=== PATIENT | female | born 1935 | race Caucasian/White ===

== ENCOUNTER 2024-11-17 10:04 | Outpatient (AMB) | payer MEDICARE, BC, SELFPAY ==
--- NOTE | 2024-11-17 10:08 | A.OFFVIS_ITS ---
Vital Signs 11/17/24 10:13 Height 4 ft 10 in Weight 110 lb BMI 23.0 BMI Reason not done Patient refused/unable Intake Visit Reasons: Left Knee Pain Intake Note: Pain today 01/06 Editorial Cartoonist Required: No Editorial Cartoonist Name: Nani Accompanied by: Grand Child Allergies acetaminophen (Vicodin) Allergy (Unknown, Verified 11/17/24 10:22) Unknown dexamethasone (TobraDex) Allergy (Unknown, Verified 11/17/24 10:22) Unknown erythromycin base Allergy (Unknown, Verified 11/17/24 10:22) Unknown fentanyl Allergy (Unknown, Verified 11/17/24 10:22) Vomiting hydrocodone (Vicodin) Allergy (Unknown, Verified 11/17/24 10:22) Unknown risedronate sodium (Actonel) Allergy (Unknown, Verified 11/17/24 10:22) Unknown Sulfa (Sulfonamide Antibiotics) Allergy (Unknown, Verified 11/17/24 10:22) Unknown sulfamethoxazole (From Bactrim) Allergy (Unknown, Verified 11/17/24 10:22) Unknown theophylline Allergy (Unknown, Verified 11/17/24 10:22) Unknown tobramycin (TobraDex) Allergy (Unknown, Verified 11/17/24 10:22) Unknown trimethoprim (From Bactrim) Allergy (Unknown, Verified 11/17/24 10:22) Unknown Anesthesia Extension Set Allergy (Unknown, Uncoded 11/17/24 10:22) Unknown Codeine Phosphate Allergy (Unknown, Uncoded 11/17/24 10:22) Vomiting Harvey-Heel Allergy (Unknown, Uncoded 11/17/24 10:22) Unknown HPI Comments Details: The patient is an 89-year-old female presenting with left knee pain due to advanced osteoarthritis. The left knee pain has been persistent since a torn meniscus surgery in 2008, which was performed on the left knee. The patient reports severe pain, rated 10/10 at the end of the day and 8/10 in the morning, localized to the anterior aspect of the left knee. The pain is described as throbbing, pounding, burning, tiring, aching, hurting, heavy, and tight, and is exacerbated by walking, climbing stairs, and cold weather changes. The patient has a history of osteoporosis and has been treated with Forteo for two years, which helped slow the progression of bone density loss. The patient is considering [facility] for further management of osteoporosis. The patient also has Alzheimer's dementia without behavioral disturbance, which is considered mild and well-managed as long as urinary tract infections are controlled. - Onset: Persistent since 2008 following torn meniscus surgery - Quality: Throbbing, pounding, burning, tiring, aching, hurting, heavy, tight - Location: Anterior aspect of the left knee with medial and lateral joint line tenderness and anterior mild swelling - Severity: 10/10 at the end of the day, 8/10 in the morning - Exacerbating factors: Walking, climbing stairs, cold weather changes - Relieving factors: Rest, topical applications - Interference: Affects walking, climbing stairs, and general mobility - Affect: Pain impacts daily activities and mobility, but no specific mood impact mentioned - Analgesia: Current pain level is 10/10 at the end of the day, 8/10 in the morning; goal pain level not specified - Adverse Effects: No adverse effects from pain management mentioned - Activities of Daily Living: Pain interferes with walking, climbing stairs, and general mobility - Aberrant Drug Related Behaviors: None reported [facility] Medical History Left knee pain Multiple drug allergies Osteoarthritis Celiac disease Multiple chemical sensitivity syndrome Depression Surgical History Hx of appendectomy H/O total hysterectomy with bilateral salpingo-oophorectomy (BSO) Social History Alcohol intake: unknown Patient Tobacco Use Status: Former Tobacco user Review of Systems Const Details: - Musculoskeletal: Reports severe left knee pain, locking, and clicking; denies use of heat or ice for knee - Neurological: Denies significant cognitive decline; reports mild Alzheimer's dementia without behavioral disturbance All systems reviewed & are unremarkable except as noted in HPI and below Physical Exam Vital Signs: BMI result Body Mass Index 23.0 General: Appears afebrile. Alert and oriented. Mood and affect appropriate. Follows and participates in conversation appropriately. Respiratory effort is unlabored. No cough. Able to transition from sit to stand unassisted. Ambulates with bilaterally normal heel strike and toe off. Extrem General: Yes capillary refill normal, Yes no pedal edema, Yes no calf tenderness, No clubbing and No cyanosis Left lower extremity: knee (Limited ROM due to pain.) Details: tenderness Location: of the medial joint line, of the lateral joint line and of the pre- patellar area, swelling Location: of the patella and of the pre-patellar area, crepitus and warmth Location: anteriorly; no ecchymosis Results Reviewed Results Reviewed: XR KNEE 3 VIEWS LEFT 11/17/24 HISTORY: M17.12 - Unilateral primary osteoarthritis, left knee COMPARISON: There are no prior studies available for comparison. FINDINGS: Three views of the left knee are submitted. The bones are osteopenic. There is no fracture or dislocation. There is moderate tricompartmental osteoarthritis, with joint space narrowing and osteophyte formation. There is chondrocalcinosis. There is a moderate suprapatellar joint effusion. IMPRESSION: Osteopenia. Moderate joint effusion. Moderate tricompartmental osteoarthritis. Assessment & Plan Assessment & Plan (1) Osteoarthritis of left knee: Code(s): M17.12 - Unilateral primary osteoarthritis, left knee Category: Medical (2) Left knee pain: Code(s): M25.562 - Pain in left knee Category: Medical (3) Effusion of left knee joint: Code(s): M25.462 - Effusion, left knee Category: Medical Plan The plan for managing the patient's left knee osteoarthritis includes considering interventional procedures such as radiofrequency ablation, depending on insurance coverage and patient preference. Left knee xray was completed after today's visit, noted for osteopenia, moderate joint effusion and moderate tricompartmental osteoarthritis. Schedule left diagnostic genicular nerve block with potential joint aspiration, with local and fluoroscopy. Expectations, risks and benefits were reviewed. Patient is aware she will be contacted to schedule this procedure. Continue re st, elevation, ice applications to manage pain and swelling. The patient is advised to continue her current exercise regimen at the [facility], focusing on maintaining overall mobility and strength. All questions and concerns have been answered and patient agreed with the plan. Follow up after injections and sooner as needed. Patient was informed and verbally consented to the use of an ambient scribe for clinic note documentation during this visit. Orders: Orders XR knee LT 3V Today M17.12 - Unilateral primary osteoarthritis, left knee, M25.562 - Pain in left knee Coding Level of Care Code New Pt Level 4 (67939) Diagnoses Osteoarthritis of left knee M17.12 Left knee pain M25.562 Effusion of left knee joint M25.462
[2024-11-17 10:13] VITALS: BMI 23.0
--- OUTSIDE RECORDS SUMMARY | 2024-11-17 11:06 | XMS_ITS | Referral Summary ---
Author Organization [facility] Address [address] [place] [address] Care Team Providers Care Business Analyst Manager Name Role Phone Raisa Ortez DO, Diana Primary Care Provider + Encounters Date Type Department Care Team Description 10/15/[address] Department [address] [place] [phone] Yanelis Kline DO [place] Referral 10/13/2024 myChart Message [address] Practice Department [address] [place] [phone] Yanelis Kline DO Medical Referral 10/01/2024 4:00 PM EDT Office Visit [address] Department [address] [place] [phone] Yanelis Kline DO Recurrent UTI (Primary Dx); Hypertension, essential; Hypothyroidism (acquired); Osteoporosis, unspecified osteoporosis type, unspecified pathological fracture presence; Alzheimer's dementia without behavioral disturbance (HCC); Dysuria 09/23/2024 myChart Message [address] Practice Department [address] [place] [phone] Armandt, Generic Provider Appointment 09/23/[address] Practice Department [address] [place] [phone] Yanelis Kline V, DO Patient Medication Question 09/15/2024 myChart Message [facility] Endocrinology Department [address] [place] [address] [phone] Carin Gutierrez MD Incorrect Thyroid Dosage 09/15/2024 Telephone [facility] [address] [facility] Endocrinology Department [address] [place] [address] [phone] Carin Gutierrez MD 08/25/2024 Telephone [facility] 255 [facility] Family Practice Department [address] [place] [phone] Yanelis Kline DO Referral Question 08/23/2024 Results Follow-Up [facility] 255 [facility] Family Practice Department [address] [place] [address] [phone] Yanelis Kline V, Results from Last 3 Months Allergies Active Allergy Reactions Criticality Noted Date Comments Acetaminophen Unknown 02/28/2016 n/v Codeine Unknown 02/28/2016 n/v Erythromycin Unknown Low 03/02/2005 Extra Eye Drops Unknown 02/28/2016 Sulfur-itchy eyes Fentanyl Unknown 02/28/2016 n/v Gluten Unknown 08/09/2017 Celiac disease Hydrocodone-Acetaminophen Unknown,Nausea And Vomiting Medium 03/02/2005 Lidocaine Unknown 02/28/2016 Dizzy,nausea,tired Memantine Syncope High 08/10/2024 Midazolam Unknown 02/28/2016 Dizzy,nausea,tired Risedronate Swelling High 02/28/2016 Numb/ting or swelling of lips,tongue,mouth Spironolactone Unknown 03/29/2023 Sulfa (Sulfonamide Antibiotics) Hives,Other (see comments) 03/18/2024 Sulfamethoxazole-Trimetho prim Unknown,Flushing Medium 03/02/2005 Sulfur Unknown 03/29/2023 Theophylline Unknown Medium 03/02/2005 Tobramycin-Dexamethasone Unknown 03/29/2023 Triprolidine-Pseudoephedr ine Swelling High 03/02/2005 Medications CALCIUM LACTATE ORAL Take 325 mg by mouth once a day. Active qnndkevi-jtw-WZ -lycopen-lutein 0.4 mg-300 mcg- 250 mcg tablet Take 1 tablet by mouth once a day. Active omega-3 fatty acids 1,000 mg capsule Take 1,000 mg by mouth once a day. Active magnesium oxide 400 mg magnesium tablet Take 400 mg by mouth once a day. Active selenium sulfide (SELSUN) 2.5 % lotion SMARTSIG:Top ical 03/16/2023 Active Vitamin D3 25 mcg (1,000 unit) capsule Take 1 capsule by mouth once a day. Active ascorbic acid (VITAMIN C) 500 mg tablet Take 500 mg by mouth once a day. Active thyroid (ETHANOL MAINTENANCE MECHANIC Thyroid) 60 mg tabletIndicatio ns:Hypothyroidi sm (acquired) Take 1 tablet (60 mg total) by mouth daily. 30 tablet 5 09/15/2024 Active Active Problems Problem Noted Date Diagnosed Date Recurrent UTI 05/04/2024 Assessment & Plan (10/01/2024 6:15 PM EDT): No overt urinary symptoms but reports slight decline in memory and mood which has been a result of a UTI in the past. Will check UA. Often times she does not have noticeable symptoms. There may be a cognitive declines when she has an active UTI. She has tried Estrace cream as a prophylaxis but she had an adverse reaction to. She has been prescribed Hiprex by urologist but stopped it yesterday. Rx keflex dispensed and supportive care reviewed. Call if no improvement. Orders: POCT Urinalysis dipstick cephalexin (KEFLEX) 500 mg capsule; Take 1 capsule (500 mg total) by mouth 2 times a day for 7 days. Assessment & Plan (08/23/2024 7:51 PM EDT): Currently experiencing some urinay frequency. Will check UA. Often times she does not have noticeable symptoms. There may be a cognitive declines when she has an active UTI. She has tried Estrace cream as a prophylaxis but she had an adverse reaction to. She has been prescribed Hiprex by urology but unclear if she is taking it. Assessment & Plan (05/08/2024 6:53 PM EST): Currently experiencing some urinay frequency. Will check UA. Often times she does not have noticeable symptoms. There may be a cognitive declines when she has an active UTI. She has tried Estrace cream as a prophylaxis but she had an adverse reaction to. She is requesting Hiprex. Recommend urology consultation for her need for this medication. Orders: Urinalysis W/Reflex to Microscopic & Culture; Future Urine culture (clean catch) (Lab Collect) POCT Urinalysis dipstick Microscopic Urinalysis Only Ambulatory referral to Urology; Future Raynaud's phenomenon 05/04/2024 Assessment & Plan (05/08/2024 6:53 PM EST): Discussed possible CCB. Declines medications at this time. Dark urine 04/03/2024 Assessment & Plan (04/03/2024 12:13 PM EST): Asymptomatic, reports dark urine, urine dip in office was negative for UTI. 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 Having bilat leg swelling. Holter monitor ordered. Advised to follow up as needed. Alzheimer's dementia without behavioral disturba nce 10/28/2023 Assessment & Plan (10/01/2024 6:15 PM EDT): Stable. Unable to tolerate Namenda due to adverse reaction. Currently at her baseline, A&O x3. MMSE score 3026 Sep 2023. 2 points improved on MoCA done through her neurologist October 2023. Follow up with neurology as recommended. Assessment & Plan (08/23/2024 7:51 PM EDT): Stable. Unable to tolerate Namenda due to adverse reaction. Currently at her baseline, A&O x3. MMSE score 3026 Sep 2023. 2 points improved on MoCA done through her neurologist October 2023. Follow up with neurology as recommended. Assessment & Plan (05/08/2024 6:53 PM EST): Stable. Unable to tolerate Namenda due to adverse reaction. Currently at her baseline, A&O x3. MMSE score 30/26 Sep 2023. 2 points improved on MoCA done through her neurologist October 2023. Follow up with neurology as recommended. Leg edema 07/29/2023 Assessment & Plan (04/03/2024 12:13 PM EST): Mild swelling to bilat feet, L>R, no weight gain noted, advised continue with compression stockings. Assessment & Plan (11/11/2023 12:20 PM EDT): Bilateral LE edema. Discussed leg elevation, compression, low sodium diet. CMP ordered. Assessment & Plan (07/29/2023 1:39 PM EDT): Bilateral LE edema. Discussed leg elevation, compression, low sodium diet. Hydrochlorothiazide as above for hypertension. Moderate late onset Alzheime r's dementia without behavioral disturbance, psychotic disturbance, mood disturbance, or anxiety 06/06/2023 Assessment & Plan (02/27/2024 6:31 PM EDT): Stable. Unable to tolerate Namenda due to adverse reaction. Currently at her baseline, A&O x3. MMSE score 30/26 Sep 2023. 2 points improved on MoCA done through her neurologist October 2023. Follow up with neurology as recommended in next year. Assessment & Plan (11/11/2023 11:09 AM EDT): Follows with Dr. Hidalgo. Gamaliel. Currently at her baseline A&Ox3. Assessment & Plan (09/15/2023 7:59 PM EDT): Stable. Unable to tolerate Namenda due to adverse reaction. Currently at her baseline, A&O x3. MMSE score 30/30 today. Follow up with neurology as scheduled next month. Assessment & Plan (07/29/2023 1:36 PM EDT): Stable. Unable to tolerate Namenda due to adverse reaction. Currently at her baseline. Follow up with neurology as directed. Will check urinalysis and culture to rule out infection. Assessment & Plan (07/01/2023 3:28 PM EST): Stable. Unable to tolerate Namenda due to adverse reaction. Currently at her baseline. Follow up with neurology as directed. Assessment & Plan (06/14/2023 4:56 PM EST): Follows with [facility] neurologist. Advised medication for dementia and son states his mom declined due to advised side effects. Lengthy discussion had with patient and son that it may be beneficial to trial the medication. Follow up as needed. Cerebral atrophy 04/01/2023 Assessment & Plan (05/26/2023 8:56 PM EST): 03/30 MRI brain: No acute intracranial abnormality. Mild to moderate small vessel ischemic changes and generalized volume loss. Plan is to get better blood pressure control gradually. Consider adding ACEi/ARB if still elevated. Neurology appointment pending. RTO 2 months for follow up or earlier as needed. Assessment & Plan (04/01/2023 6:18 PM EST): 03/30 MRI brain: No acute intracranial abnormality. Mild to moderate small vessel ischemic changes and generalized volume loss. Plan is to get better blood pressure control gradually. Neurology referral. RTO 1 month for follow up or earlier as needed. Hypertension, essential 04/01/2023 Assessment & Plan (10/01/2024 6:15 PM EDT): BP at goal. Higher BP goals acceptable for her advanced age. Adverse reactions to amlodipine, losartan and hydrochlorothiazide. Consider hydralazine, cardiology referral. Low sodium diet. BP check in 3 months with repeat labs. Assessment & Plan (08/23/2024 7:51 PM EDT): BP at goal. Higher BP goals acceptable for her advanced age. Adverse reactions to amlodipine, losartan and hydrochlorothiazide. Consider hydralazine, cardiology referral. Low sodium diet. BP check in 3 months with repeat labs. Assessment & Plan (05/08/2024 6:53 PM EST): BP at goal. Higher BP goals acceptable for her advanced age. Adverse reactions to amlodipine, losartan and hydrochlorothiazide. Consider hydralazine, cardiology referral. Low sodium diet. BP check in 3 months with repeat labs. Assessment & Plan (02/27/2024 6:31 PM EDT): BP at goal. Higher BP goals acceptable for her advanced age. Adverse reactions to amlodipine, losartan and hydrochlorothiazide. Consider hydralazine, cardiology referral. Low sodium diet. BP check in 1-2 month with repeat labs. Assessment & Plan (11/11/2023 12:19 PM EDT): Normotensive in office today. Advised low salt diet. Having leg swelling, advised elevated and compression stocking. Assessment & Plan (09/15/2023 8:02 PM EDT): BP elevated. Higher BP goals acceptable for her advanced age. Adverse reactions to amlodipine, losartan and hydrochlorothiazide. Consider hydralazine, cardiology referral. Low sodium diet. BP check in 1-2 month with repeat labs. Assessment & Plan (07/29/2023 1:37 PM EDT): BP elevated. Adverse reactions to amlodipine and losartan. Trial hydrochlorothiazide 12.5 mg daily. Low sodium diet. BP check in 1 month with repeat labs. Assessment & Plan (07/01/2023 3:27 PM EST): BP elevated. Had not taken amlodipine as originally prescribed. Recommend instead starting losartan 25 mg daily due to her existing LE swelling. Low sodium diet. BP check in 1 month with repeat labs. Assessment & Plan (04/01/2023 6:45 PM EST): BP elevated. Start amlodipine 5 mg daily. Low sodium diet and regular exercise reviewed. BP check in 1 month. Allergy 03/16/2023 Arthritis 03/16/2023 Cracked nails 03/16/2023 Diplopia 03/16/2023 Dry scalp 03/16/2023 Hypothyroidism (acquired) 03/16/2023 Assessment & Plan (10/01/2024 6:15 PM EDT): Chronically suppressed TSH. Managed with ETHANOL MAINTENANCE MECHANIC Thyroid 90 mg daily by endocrinology. She declines reduction in her dose as recommended by endocrinology. Plans to be establishing with new information resources manager. Assessment & Plan (08/23/2024 7:51 PM EDT): Clinically euthyroid. Managed with ETHANOL MAINTENANCE MECHANIC Thyroid 120 mg daily by endocrinology. Will be established with new information resources manager in [place] in March. Assessment & Plan (05/08/2024 6:53 PM EST): Clinically euthyroid. Managed with ETHANOL MAINTENANCE MECHANIC Thyroid 120 mg daily by endocrinology. Will be established with new information resources manager in [place] in March. Assessment & Plan (02/27/2024 6:31 PM EDT): Clinically euthyroid. Managed with ETHANOL MAINTENANCE MECHANIC Thyroid 120 mg daily by endocrinology. Will be established with new information resources manager in [place] in March. Assessment & Plan (11/11/2023 12:20 PM EDT): Recent TSH 0.014, repeat TSH ordered. Assessment & Plan (09/15/2023 8:13 PM EDT): Clinically euthyroid. Managed with ETHANOL MAINTENANCE MECHANIC Thyroid 120 mg daily by endocrinology. Assessment & Plan (03/29/2023 7:44 PM EST): Managed with ETHANOL MAINTENANCE MECHANIC Thyroid 120 mg daily by endocrinology. Low back pain 03/16/2023 Mixed incontinence urge and stress 03/16/2023 Osteoporosis 03/16/2023 Assessment & Plan (10/01/2024 6:15 PM EDT): Managed with [employer] by jig mill operator Dr. Matthew Ortiz in [place], [place]. Assessment & Plan (08/23/2024 7:51 PM EDT): Managed with [employer] by jig mill operator Dr. Matthew Ortiz in [place], [place]. Assessment & Plan (05/08/2024 6:53 PM EST): Managed with [employer] by jig mill operator Dr. Matthew Ortiz in [place]. Assessment & Plan (02/27/2024 6:31 PM EDT): Managed with [employer] by jig mill operator Dr. Matthew Ortiz in [place], [place]. Dizziness 03/16/2023 Assessment & Plan (11/11/2023 12:23 PM EDT): Dizziness upon sitting up with recent submersion of head underwater, suspect inner ear/vertigo symptoms. Advised sitting up slowly. Follow up if symptoms persist or worsen. 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 Follows with dermatology Sensorineural hearing loss 02/11/2018 Overview (02/27/2024): Follows with ENT Atypical chest pain 04/12/2017 Overview (02/27/2024): S/p chemical stress inconclusive, echo stress deferred by patient. 04/17/2017 Squamous cell cancer of scalp and skin of neck 0 11/24/2013 Osteoarthritis of left knee 11/03/2012 Overview (02/27/2024): Follows with orthopedics As well as the arthritis treatment center in [place] Assessment & Plan (04/03/2024 12:13 PM EST): Follows with ortho. Xray left knee done 03/18/24 showed tricompartmental OA. Received cortisone injection. 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 Will send for culture. Advised adequate hydration. Will hold off on ABX because not clinically indicated. Follow up as needed. Assessment & Plan (06/14/2023 4:57 PM EST): Urine dip in office was negative. Urine culture sent. Patient is poor historian. Denies any other symptoms or signs of infection elsewhere. Keflex prescribed. Advised hydration and to vacate bladder in a timely fashion. Follow up if symptoms persist or worsen. Memory loss 03/29/2023 11/11/2023 Assessment & Plan (05/26/2023 8:57 PM EST): Suspect underlying dementia. Mother with history of dementia. No acute CVA identified on MRI. Neuro evaluation pending. Assessment & Plan (04/01/2023 6:43 PM EST): Mother with history of dementia. No acute CVA identified on MRI. Labs order. Neurology referral. Assessment & Plan (03/29/2023 7:41 PM EST): Reporting some memory decline over the last few weeks to months. No slurred speech, weakness or facial droop. She does answer questions appropriately. Spoke to son Sidney regarding any concerns he has. He reports noting her memory decline slowly over the past year and that she does not have any difficulty driving places as she drives to [id number] frequently. Discussed plan of MRI brain with blood work. RTO 3 days for follow up and review of results. Alarm signs and symptoms reviewed and when to seek emergency care. Blurry vision 03/16/2023 02/27/2024 COVID-19 03/16/2023 03/16/2023 Major depression 03/16/2023 03/16/2023 Overweight (BMI 25.0-29.9) 03/16/2023 0 11/11/2023 Saliva increased 03/16/2023 03/16/2023 Swelling of left lower extremity 03/16/2023 03/16/2023 Lump in neck 03/16/2023 11/11/2023 Immunizations Immunization Administration Dates Next Due Covid-19 Monovalent Vaccine, Moderna, mRNA, PF 05/16/2021,01/03/2021,12/06/2020 Influenza, Trivalent, Adjuvanted, PF 02/27/2024( Deferred: Patient decision) Pneumococcal Polysaccharide Vaccine, 23 Valent 08/28/2004 Pneumococcal conjugate PCV20,polysaccharide [id number] conjugate, adjuvant, PF (Prevnar 20) 02/27/2024(Deferred: Patient decision) Td(Adult) Unspecified Formulation 12/19/2012 Tetanus and Diphtheria Toxoi ds, Adsorbed, Preservative Free (2 Lf of Tetanus Toxoid and 2 Lf of Diphtheria Toxoid) 02/27/2024(Deferred: Patient decision),12/19/2012 Tuberculin Skin Test; Nancyi ed Protein Derivative Solution, Intradermal 08/22/2000 Social History Tobacco Use Types Packs/Day Years Used Date Smoking Tobacco: Former Cigarettes Smokeless Tobacco: Never Tobacco Cessation:Counseling Given: Not Answered Comments:: Alcohol Use Standard Drinks/Week Comments Not Currently 0 (1 standard drink = 0.6 oz pur e alcohol) [facility] Utilities Answer Date Recorded In the past 12 months has e [employer], gas, oil, or water [employer] threatened to shut off services in your home? No 08/10/2024 Hunger Vital Sign Answer Date Recorded Within the past 12 months, y ou worried that your food would run out before you got the money to buy more. Never true 08/11/19 25 Within the past 12 months, t he food you bought just didn't last and you didn't have money to get more. Never true 08/10/2024 Transportation Answer Date Recorded In the past 12 months, has l ack of reliable transportation kept you from medical appointments, meetings, work or from getting things needed for daily living? No 08/10/2024 Housing Answer Date Recorded Housing Risk Low 2 08/10/2024 Housing Risk Medium Not on file 08/10/2024 Housing Risk High Not on file 08/10/2024 What is your living situation today? [facility] 08/10/2024 Comments No Sex and Gender Information Value Date Recorded Sex Assigned at Female 03/29/2023 2:10 PM EST Legal Sex Female 12:14 AM EDT Gender Identity Female 06/30/2023 12:47 PM EST Sexual Orientation Choose not to disclose 2023 12:47 PM EST Last Filed Vital Signs Vital Sign Reading Time Taken Comments Blood Pressure 116/80 10/01/2024 3:59 PM EDT Pulse 71 10/01/2024 3:59 PM EDT Temperature 36.2 C (97.2 F) 10/01/2024 3:59 PM EDT Respiratory Rate 18 06/02/2024 11:01 AM EST Oxygen Saturation 95% 10/01/2024 3:59 PM EDT Inhaled Oxygen Concentration - - Weight 51.7 kg (114 lb) 10/01/2024 3:59 PM EDT Height 147.3 cm (4' 10 ) 10/01/2024 3:59 PM EDT Body Mass Index 23.83 10/01/2024 3:59 PM EDT Plan of Treatment Upcoming Encounters Date Type Department Care Team (Late st Contact Info) Description 01/11/2025 11:00 AM EDT Office Visit [address] Family Practice Department [address] [place] [phone] Yanelis Kline DO [address] [place] [address] 03/01/2025 10:30 AM EST Office Visit [address] Family Practice Department [address] [place] [phone] Paula Carrillo NP [address] [place] [address] 06/03/2025 11:00 AM EST Follow-Up [facility] Neurology [address] [place] [phone] Janeth Hidalgo MD [address] [place] [phone] Procedures * Due to [place] state law, this organization might not be sharing negative HIV tests. Procedure Name Priority Date/Time Associated Diagnosis Comments MICROSCOPIC URINALYSIS ONLY Routine 10/01/2024 4:35 PM EDT Dysuria MONTILLA TOP, URN Routine 10/01/2024 4:35 PM EDT Dysuria UA/CULTURE REFLEX Routine 10/01/2024 4:3 5 PM EDT Dysuria URINALYSIS W/REFLEX TO MICROSCOPIC & CULTURE Routine 10/01/2024 4:35 PM EDT Dysuria URINE CULTURE, ROUTINE Routine 4:35 PM EDT Dysuria POCT URINALYSIS DIPSTICK, NON-INTERFACED Routine 10/01/2024 3:59 PM EDT Recurrent UTI MONTILLA TOP, URN Routine 08/18/2024 9:40 AM EDT Dark urine UA/CULTURE REFLEX Routine 08/18/2024 9:4 0 AM EDT Dark urine LIPID PANEL Routine 08/18/2024 9:40 AM EDT Healthcare maintenance COMPREHENSIVE METABOLIC PANEL Routine 08/18/2024 9:40 AM EDT Healthcare maintenance CBC Routine 08/18/2024 9:40 AM EDT Healthcare maintenance Frequent UTI T4, FREE Routine 08/18/2024 9:40 AM EDT Hypothyroidism (acquired) TSH Routine 08/18/2024 9:40 AM EDT Hypothyroidism (acquired) URINALYSIS W/REFLEX TO MICROSCOPIC & CULTURE Routine 08/18/2024 9:40 AM EDT Dark urine HM DEXA SCAN 11/30/2022 10:31 AM EDT from Last 3 Months or Most Recently Relevant to Health Maintenance Results * Due to [place] state law, this organization might not be sharing negative HIV tests. * Montilla Top, Urine (10/01/2024 4:35 PM EDT) Only the most recent of2 resultswithin the time period is included. Extra Tube Hold for add-ons. 10/01/2024 9:05 PM EDT [facility] Comment:Auto resulted. Urine Urine specimen collection, clean catch / Unknown Non-Blood Collection / Unknown 10/01/2024 4:35 PM EDT 10/01/2024 6:49 PM EDT us Yanelsi Kline V, DO LAB URINE ORDERABLES Fin al Result [facility] [address] [place] [address], [place] [phone] * (ABNORMAL) Microscopic Urinalysis Only (10/01/2024 4:35 PM EDT) RBC, Urine None Seen None Seen, 0-2 /HPF 10/01/2024 7:41 PM EDT [facility] WBC, Urine 5-10(A) None Seen, 0-2 /HPF 10/01/2024 7:41 PM EDT [facility] Squamous Epithelial Cells, Urine 3-5 /HPF 10/01/2024 7:41 PM EDT [facility] Calcium Oxalate Crystals, Urine Moderate /HPF 10/01/2024 7:41 PM EDT [facility] Bacteria, Urine Occasional(A ) None Seen /HPF 10/01/2024 7:41 PM EDT [facility] Urine Urine specimen collection, clean catch / Unknown Non-Blood Collection / Unknown 10/01/2024 4:35 PM EDT 10/01/2024 6:58 PM EDT us Yanelis Ortez DO LAB URINE ORDERABLES Fin al Result [facility] [address] [place] [address], [place] [phone] * (ABNORMAL) Urinalysis W/Reflex to Microscopic & Culture (10/01/2024 4:35 PM EDT) Only the most recent of2 resultswithin the time period is included. Color, Urine Yellow Yellow 10/01/2024 6:59 PM EDT [facility] Clarity, Urine Clear Clear 10/01/2024 6:59 PM EDT [facility] Specific [place], Urine 1.020 1.005 - 1.030 10/01/2024 6:59 PM EDT [facility] pH, Urine 5.5 5.0 - 8.0 10/01/2024 6:59 PM EDT [facility] Protein, Urine Negative Negative mg/dL 10/01/2024 6:59 PM EDT [facility] Glucose, Urine Negative Negative mg/dL 10/01/2024 6:59 PM EDT [facility] Ketones, Urine Negative Negative mg/dL 10/01/2024 6:59 PM EDT [facility] Bilirubin, Urine Negative Negative 10/01/2024 6:59 PM EDT [facility] Blood, Urine Negative Negative 10/01/2024 6:59 PM EDT [facility] Nitrite, Urine Negative Negative 10/01/2024 6:59 PM EDT [facility] Urobilinogen, Urine 0.2 0.2 - 1.0 E.U./dL 10/01/2024 6:59 PM EDT [facility] Leukocyte Esterase, Urine Moderate(A) Negative 10/01/2024 6:59 PM EDT [facility] Urine Urine specimen collection, clean catch / Unknown Non-Blood Collection / Unknown 10/01/2024 4:35 PM EDT 10/01/2024 6:49 PM EDT us Yanelis Ortez DO LAB URINE ORDERABLES Fin al Result Performing Organization Address [facility] Center/[facility]/[employer] [employer] Phone Number [facility] [address] [place] [id number], [place] [phone] * Urine Culture, Routine (10/01/2024 4:35 PM EDT) Urine Culture <10,000 CFU/mL mixed gram positives; multiple organisms are present, suggestive of contamination at the time of collection. [place] MANUAL 10/03/2024 7:50 AM EDT [facility] Urine Urine specimen collection, clean catch / Unknown Non-Blood Collection / Unknown 10/01/2024 4:35 PM EDT 10/01/2024 6:49 PM EDT Yanelis Ortez DO LAB MICROBIOLOGY - GENER AL ORDERABLES Final Result Performing Organization Address [facility] Phone Number [facility] [address] [place] [address], [place] [phone] * (ABNORMAL) POCT Urinalysis dipstick (10/01/2024 3:59 PM EDT) Color, UA Yellow Yellow Clarity, UA Clear Clear Glucose, UA Negative Negative mg/dL Bilirubin, UA Negative Negative Ketones, UA Negative Negative mg/dL Spec Grav, UA 1.025 1.005 - 1.030 Blood, UA Negative Negative pH, UA 5.5 5.0 - 8.5 Protein, UA Negative Negative mg/dL Urobilinogen, UA 0.2 0.2 - 1.0 E.U. /dL mg/dL Nitrite, UA Negative Negative Leukocytes, UA Trace(A) Negative Urine 10/01/2024 3:59 PM EDT us Yanelis Immenhausen V, DO POINT OF CARE TEST ORDER SHARONDA Final Result * (ABNORMAL) CBC (08/18/2024 9:40 AM EDT) WBC 5.9 4.8 - 10.8 10*3/uL 08/18/2024 12:03 PM EDT [facility] RBC 4.07(L) 4.20 - 5.40 10*6/uL 08/18/2024 12:03 PM EDT [facility] Hemoglobin 12.1 11.7 - 15.5 g/dL 08/18/2024 12:03 PM EDT [facility] Hematocrit 36.4 35.7 - 45.8 % 08/18/2024 12:03 PM EDT [facility] MCV 89.4 81.0 - 99.0 fL 08/18/2024 12:03 PM EDT [facility] MCH 29.7 26.0 - 34.0 pg 08/18/2024 12:03 PM EDT [facility] MCHC 33.2 31.0 - 36.0 g/dL 08/18/2024 12:03 PM EDT [facility] RDW 13.7 12.0 - 15.0 % 08/18/2024 12:03 PM EDT [facility] Platelets 240 140 - 440 10*3/uL 08/18/2024 12:03 PM EDT [facility] MPV 10.7 9.4 - 12.3 fL 08/18/2024 12:03 PM EDT [facility] RDW Standard Deviation 45.1 36.4 - 46.3 fL 08/18/2024 12:03 PM EDT [facility] Blood Structure of peripheral vein / Unknown Venipuncture / Unknown 08/18/2024 9:40 AM EDT 08/18/2024 9:45 AM EDT us Yanelis Kline V, DO LAB BLOOD ORDERABLES Fin al Result [facility] [address] [address], [place] [phone] * (ABNORMAL) TSH (08/18/2024 9:40 AM EDT) TSH 0.025(L) 0.270 - 4.200 uIU/mL 08/18/2024 12:29 PM EDT [facility] Comment: Females: 1st trimester 0.150-4.000 IU/mL 2nd trimester 0.310-4.170 IU/mL 3rd trimester 0.380-4.150 IU/mL Blood Structure of peripheral vein / Unknown Venipuncture / Unknown 08/18/2024 9:40 AM EDT 08/18/2024 9:45 AM EDT Paula Carrillo NP LAB BLOOD ORDERABL ES Final Result [facility] [address] [address], [place] [phone] * T4, Free (08/18/2024 9:40 AM EDT) Free T4 1.31 0.80 - 1.80 ng/dL 08/18/2024 12:29 PM EDT [facility] Comment: Females: (ng/dL) First Trimester 0.95-1.58 ng/dL Second Trimester 0.76-1.24 ng/dL Third Trimester 0.70-1.25 ng/dL Dietary supplements containing biotin may interfere in assays and may skew analyte results to be falsely high. For patients receiving the recommended daily doses of biotin, draw samples at least 8 hours following the last biotin supplementation. For patients on kimberly-doses of biotin supplements, draw samples at least 72 hours following the last biotin supplementation. Blood Structure of peripheral vein / Unknown Venipuncture / Unknown 08/18/2024 9:40 AM EDT 08/18/2024 9:45 AM EDT Paula Carrillo NP LAB BLOOD ORDERABL ES Final Result [facility] [address] [address], [place] [phone] * Lipid panel (08/18/2024 9:40 AM EDT) Cholesterol 198 mg/dL 08/18/2024 12:29 PM EDT [facility] Comment: DESIRABLE: <200 mg/dL BORDERLINE HIGH: 200-239 mg/dL HIGH: >239 mg/dL Triglycerides 48 mg/dL 08/18/2024 12:29 PM EDT [facility] Comment: NORMAL: <150 mg/dL BORDERLINE HIGH: 150-199 mg/dL HIGH: 200-499 mg/dL VERY HIGH >499 mg/dL Cholesterol, HDL 100 mg/dL 08/19/19 12:29 PM EDT [facility] Comment: DESIRABLE: >60 mg/dL BORDERLINE: 40-59 mg/dL UNDESIRABLE: <40 mg/dL LDL Cholesterol 88 mg/dL 12:29 PM EDT [facility] Comment: OPTIMAL: <100 mg/dL NEAR OPTIMAL: <130 mg/dL BORDERLINE HIGH: 130-159 mg/dL HIGH: 160-189 mg/dL VERY HIGH: >189 mg/dL VLDL 9.6 mg/dL 08/18/2024 12:29 PM EDT [facility] Cholesterol/HDL Ratio 2.0 08/18/2024 12:29 PM EDT [facility] Blood Structure of peripheral vein / Unknown Venipuncture / Unknown 08/18/2024 9:40 AM EDT 08/18/2024 9:45 AM EDT us Yanelis Kline V, DO LAB BLOOD ORDERABLES Fin al Result [facility] [address] [address], [place] [phone] * (ABNORMAL) Comprehensive Metabolic Panel (08/18/2024 9:40 AM EDT) NA 140 136 - 145 mmol/L 08/18/2024 12:29 PM EDT [facility] K 4.8 3.5 - 5.1 mmol/L 08/18/2024 12:29 PM EDT [facility] Cl 104 98 - 109 mmol/L 08/18/2024 12:29 PM EDT [facility] CO2 27 22 - 32 mmol/L 08/18/2024 12:29 PM EDT [facility] Anion Gap 14 >=0 08/18/2024 12:29 PM EDT [facility] Glucose 84 60 - 99 mg/dL 08/18/2024 12:29 PM EDT [facility] Creatinine 0.98 0.50 - 1.12 mg/dL 08/18/2024 12:29 PM EDT [facility] Calcium 9.2 8.4 - 10.4 mg/dL 08/18/2024 12:29 PM EDT [facility] Total Protein 5.7(L) 6.6 - 8.7 g/dL 08/18/2024 12:29 PM EDT [facility] Albumin 4.1 3.5 - 5.0 g/dL 08/18/2024 12:29 PM EDT [facility] Bilirubin, Total 0.6 0.2 - 1.2 mg/dL 08/18/2024 12:29 PM EDT [facility] Alkaline Phosphatase 54 40 - 129 U/L 08/18/2024 12:29 PM EDT [facility] AST 19 0 - 33 U/L 08/18/2024 12:29 PM EDT [facility] ALT 8 <=33 U/L 08/18/2024 12:29 PM EDT [facility] BUN 21 8 - 23 mg/dL 08/18/2024 12:29 PM EDT [facility] eGFR 56(L) >=60 mL/min/1. 73m2 08/18/2024 12:29 PM EDT [facility] Comment:The estimated glomer ular filtration rate (eGFR) is calculated using a new formula developed by the NKF-ASN task force to eliminate race-based correction factors. The new formula uses serum/plasma creatinine, age, and gender to determine eGFR. A value below 60mls/min might indicate kidney disease and will be flagged. For additional information, see Yevgeniy et al, Am J Kidney Dis. 2021;79(2):268- 288, A Unifying Approach for GFR estimation: Recommendations of the NKF-ASN Task Force on Reassessing the Inclusion of Race in Diagnosing Kidney Disease . Globulin, Total 1.6(L) 2.1 - 4.2 g/dL 08/18/2024 12:29 PM EDT [facility] A/G Ratio 2.6 1.5 - 3.0 08/18/2024 12:29 PM EDT [facility] Blood Structure of peripheral vein / Unknown Venipuncture / Unknown 08/18/2024 9:40 AM EDT 08/18/2024 9:45 AM EDT us Yanelis Kline V, LAB BLOOD ORDERABLES Fin al Result [facility] [address] [facility] [address] [place] [address], [place] [phone] * Dexa Scan (11/30/2022 10:31 AM EDT) Anatomical Region Laterality Modality Other us Onbase Scan [facility] Final Resu lt from Last 3 Months or Most Recently Relevant to Health Maintenance Insurance MEDICARE [facility] Advance Directives Documents on File Type Date Recorded 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
--- OUTSIDE RECORDS SUMMARY | 2024-11-17 11:06 | XMS_ITS | Clinical Summary ---
Author Organization [address] Address [address] [place] [id number] Phone Care Team Providers Care Demand Planning Analyst Name Role Phone Ling Muller MD Primary Care Provider [phone] Surgical History Surgery Date Site/Laterality Comments OTHER SURGICAL HISTORY PROCEDURE: HISTORICAL MELANOMA OTHER SURGICAL HISTORY 2003 PROCEDURE: [place] ARTHRS KNEE W/MENISCECTOMY MED&LAT W/SHAVING; COMMENT: left ESOPHAGOGASTRODUODENOSCOPY 07/17/2005 PROCEDURE: [place] EGD TRANSORAL BIOPSY SINGLE/MULTIPLE; COMMENT: celiac disease COLONOSCOPY 07/17/2008 PROCEDURE: FL COLONOSCOPY FLX DX W/COLLJ SPEC WHEN PFRMD; COMMENT: Normal OTHER SURGICAL HISTORY PROCEDURE: HISTORICAL SQUAMOUS CELL CA; COMMENT: left forehead APPENDECTOMY PROCEDURE: HISTORICAL APPENDECTOMY HYSTERECTOMY PROCEDURE: HISTORICAL TOTAL HYSTERECTOMY WITH BSO Medical History Medical History Date Comments Celiac disease DX:Celiac diseas e 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 Follows with dermatology Family History Medical History Relation Name Comments Arthritis Father said to have RA Other: osteoporosis Mother Mental illness Son 1 Mental illness Son 2 Relation Name Status Comments Father Mother Son 1 Son 2 Social History Tobacco Use Types Packs/Day Years Used Date Smoking Tobacco: Former Cigarettes Smokeless Tobacco: Never Alcohol Use Standard Drinks/Week Comments No 0 (1 standard drink = 0.6 oz pur e alcohol) Comments Unknown Sex and Gender Information Value Date Recorded Sex Assigned at Not on file Legal Sex Female 6:26 PM EST Gender Identity Not on file Sexual Orientation Not on file Obstetrics History Plan of Treatment Health Maintenance Due Date Last Done Comments COVID-19 Vaccine (#1) 1942 Zoster Vaccines (1 of 2) 1956 Pneumococcal Vaccine: 50+ Ye ars (2 of 2 - PCV) 08/28/2005 08/28/2004 RSV Immunization Adult Patie nts (1 - 1-dose 75+ series) 2012 DTaP,Tdap,and Td Vaccines (2 - Td or Tdap) 12/19/2022 12/19/2012 Falls Risk Assessment 03/22/2024 Medicare Annual Wellness Visit 03/22/2024 Osteoporosis Screening (Bone Density Screening) 03/22/2024 05/22/2018 Social Influencers of Health Screening 03/22/2024 Depression Screening 04/29/2024 Influenza Vaccine (#1) 2024 HIB Vaccines Aged Out No longer eligi ble based on patient's age to complete this topic HPV Vaccines Aged Out No longer eligi ble based on patient's age to complete this topic Hepatitis A Vaccines Aged Out No long er eligible based on patient's age to complete this topic Hepatitis B Vaccines Aged Out No long er eligible based on patient's age to complete this topic IPV Vaccines Aged Out No longer eligi ble based on patient's age to complete this topic MMR Vaccines Aged Out No longer eligi ble based on patient's age to complete this topic Meningococcal ACWY Vaccine Aged Out N o longer eligible based on patient's age to complete this topic Meningococcal B Vaccine Aged Out No l onger eligible based on patient's age to complete this topic RSV Immunization Patients Un lisa 20 months Aged Out No longer eligible b ased on patient's age to complete this topic Varicella Vaccines Aged Out No longer eligible based on patient's age to complete this topic Procedures Procedure Name Priority Date/Time Associated Diagnosis Comments DXA BONE DENSITY STUDY 1+ SITS AXIAL SKEL Routine 05/22/2018 11:58 AM EST Age-related osteoporosis without current pathological fracture from Last 3 Months or Most Recently Relevant to Health Maintenance Results * DXA BONE DENSITY STUDY 1+ SITS AXIAL SKEL (05/22/2018 11:58 AM EST) Anatomical Region Laterality Modality Bone Densitometr y 04/15/2018 11:5 6 AM EST Narrative 05/22/2018 4:03 PM EST DEXA SCAN: Lumbar Spine T-score is -0.9. (SD relative to 20-29 y/o adult) Z-score is +1.9. (SD relative to age matched peers) This is considered normal bone density by WHO criteria. Left Hip T-score is -2.7. Z-score is -0.6. This is considered osteoporosis by WHO criteria. Comparison exam(s): Comparison 03/14/2016, there is a statistically significant, 2.9% increase in bone density measured at the lumbar spine. A 2.8% decrease in bone density is measured at the left hip compared to 03/14/2016. IMPRESSION: Osteoporosis by WHO criteria. The World Health Organization Fracture Risk Assessment is not calculated due to some T score at or below -2.5. The [facility] Department of Internal Medicine recommends using National Osteoporosis Foundation (NOF) guidelines in treatment decisions related to osteoporosis. NOF guidelines suggest considering treatment for postmenopausal women and men aged 50 or older presenting with the following: History of hip or vertebral fracture. T-score = -2.5 (DXA) at the femoral neck, total hip, or spine, after appropriate evaluation to exclude secondary causes. Low bone mass (T-score between -1.0 and -2.5 at the femoral neck or spine) AND a 10-year probability of a hip fracture = 3% OR a 10-year probability of a major osteoporosis-related fracture = 20% based on the [place]-adapted WHO algorithm Please note that all treatment decisions require clinical judgment and consideration of individual patient factors, including patient preferences, co-morbidities, previous drug use, risk factors not captured in the FRAX model (e.g., frailty, falls, vitamin D deficiency, increased bone turnover, interval significant decline in bone density) and possible under- or over-estimation of fracture risk by FRAX. Optional alternative screening schedule based on magali Bates., [place] May 17, 2011 for patients with osteopenia (based on hip BMD T-score) is as follows: * advanced osteopenia (T scores -2.00 to -2.49), BMD testing every year * moderate osteopenia (T scores -1.50 to -1.99), BMD testing every 5 years mild osteopenia or normal BMD (T scores -1.50 and higher), BMD testing every 15 years Procedure Note Adriana Stoddard, DO - 04/17/2022 DEXA SCAN: Lumbar Spine T-score is -0.9. (SD relative to 20-29 y/o adult) Z-score is +1.9. (SD relative to age matched peers) This is considered normal bone density by WHO criteria. Left Hip T-score is -2.7. Z-score is -0.6. This is considered osteoporosis by WHO criteria. Comparison exam(s): Comparison 03/14/2016, there is a statisticallysignificant, 2.9% increase in bone density measured at the lumbar spine. A 2.8% decrease in bonedensity is measured at the left hip compared to 03/14/2016. IMPRESSION: Osteoporosis by WHO criteria. The World Health Organization Fracture Risk Assessment is not calculated due to some T score at or below -2.5. The [facility] Department of Internal Medicine recommendsusing National Osteoporosis Foundation (NOF) guidelines in treatment decisions related toosteoporosis. NOF guidelines suggest considering treatment for postmenopausal women and menaged 50 or older presenting with the following: History of hip or vertebral fracture. T-score = -2.5 (DXA) at the femoral neck, total hip, or spine, afterappropriate evaluation to exclude secondary causes. Low bone mass (T-score between -1.0 and -2.5 at the femoral neck or spine)AND a 10-year probability of a hip fracture = 3% OR a 10-year probability of a majorosteoporosis-related fracture = 20% based on the [place]-adapted WHO algorithm Please note that all treatment decisions require clinical judgment andconsideration of individual patient factors, including patient preferences, co- morbidities,previous drug use, risk factors not captured in the FRAX model (e.g., frailty, falls, vitaminD deficiency, increased bone turnover, interval significant decline in bone density) andpossible under- or over-estimation of fracture risk by FRAX. Optional alternative screening schedule based on sheron Bates al., NEJMJanuary 2011 for patients with osteopenia (based on hip BMD T-score) is as follows: * advanced osteopenia (T scores -2.00 to -2.49), BMD testing every year * moderate osteopenia (T scores -1.50 to -1.99), BMD testing every 5years mild osteopenia or normal BMD (T scores -1.50 and higher), BMD testingevery 15 years Ling Muller MD IM DXA PROCEDURES Final Res ult from Last 3 Months or Most Recently Relevant to Health Maintenance Insurance MEDICARE [facility] Care Teams Demand Planning Analyst Relationship Specialty Start Date End Date Ling Muller MD PCP - General Internal Medicine 02/28/16
== END 2024-11-17 10:49 | disposition home or self-care (01) ==
LOC: HO.PMC 10:05
PROVIDERS: PCP Family Medicine; Referring Provider Internal Medicine Rheumatology; Visit Provider Nurse Practitioner Family
DX: M17.12 Unilateral primary osteoarthritis, left knee (principal); M25.562 Pain in left knee; M25.462 Effusion, left knee
CPT/HCPCS: 99204

== ENCOUNTER 2024-11-17 10:04 | Outpatient (REF) | payer MEDICARE, BC, SELFPAY ==
--- NOTE | ~2024-11-17 | XR_ITS ---
EXAMINATION: XR KNEE 3 VIEWS LEFT HISTORY: M17.12 - Unilateral primary osteoarthritis, left knee COMPARISON: There are no prior studies available for comparison. FINDINGS: Three views of the left knee are submitted. The bones are osteopenic. There is no fracture or dislocation. There is moderate tricompartmental osteoarthritis, with joint space narrowing and osteophyte formation. There is chondrocalcinosis. There is a moderate suprapatellar joint effusion. XR/XR knee LT 3V IMPRESSION: Osteopenia. Moderate joint effusion. Moderate tricompartmental osteoarthritis. Electronically signed by: Max Kaminski MD 11/17/2024 11:26 AM EDT
== END 2024-11-17 10:05 | disposition home or self-care (01) ==
LOC: HO.XRAY 10:04
PROVIDERS: PCP Family Medicine; Referring Provider Internal Medicine Rheumatology; Visit Provider Nurse Practitioner Family
DX: M17.12 Unilateral primary osteoarthritis, left knee (principal); M25.462 Effusion, left knee; M85.88 Other specified disorders of bone density and structure, other site
CPT/HCPCS: 73562; 99202

== ENCOUNTER → 2024-11-17 11:05 | Outpatient (BNV) | payer MEDICARE, BC, SELFPAY | PROVIDERS: PCP Family Medicine; Referring Provider Internal Medicine Rheumatology; Visit Provider Radiology Diagnostic Radiology | DX: M17.12 Unilateral primary osteoarthritis, left knee (principal) | CPT/HCPCS: 73562 ==

== ENCOUNTER 2024-12-17 06:04 | Outpatient (REF) | payer MEDICARE, BC, SELFPAY ==
--- OUTSIDE RECORDS SUMMARY | 2024-12-17 06:06 | XMS_ITS | Clinical Summary ---
Author Organization [facility] Address [address] [place] [address] Care Team Providers Care Reservation Manager Name Role Phone Raisa Ortez DO, Diana Primary Care Provider + Allergies Active Allergy Reactions Criticality Noted Date [...] mg by mouth once a day. Active vjuayjrz-wfv-Q B-nzopaab-sjjp in 0.4 mg-300 mcg- 250 mcg tablet Take 1 tablet by mouth once a day. Active omega-3 fatty acids 1,000 mg capsule Take 1,000 mg by mouth once a day. Active magnesium oxide 400 mg magnesium tablet Take 400 mg by mouth once a day. Active selenium sulfide (SELSUN) 2.5 % lotion SMARTSIG:Topica l 03/16/20 Active Vitamin D3 25 mcg (1,000 unit) capsule Take 1 capsule by mouth once a day. Active ascorbic acid (VITAMIN C) 500 mg tablet Take 500 mg by mouth once a day. Active thyroid (ARMOUR THYROID) 90 mg tablet See Instructions, 1 tablet By Mouth Daily Saturday through Saturday. 1/2 tablet on Saturday, # 30 each, 11 Refills, Maintenance, 10/07/24 9:33:00 AM EDT, Tablet, [facility], Partial fill upon patient request if the prescription is for a schedule II opioid drug. 10/08/19 25 Active thyroid ([employer] Thyroid) 60 mg tabletIndicati ons:Hypothyroi dism (acquired) Take 1 tablet (60 mg total) by mouth daily. 30 tablet 5 09/16/19 25 025 Discontinued cephalexin (KEFLEX) 500 mg capsuleIndicat ions:Recurrent UTI Take 1 capsule (500 mg total) by mouth 2 times a day for 10 days. 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 Will check UA. Often times she does not have noticeable symptoms. There may be a cognitive decline when she has an active UTI. She has tried Estrace cream as a prophylaxis but she had an adverse reaction to. She has been prescribed Hiprex by urologist but self discontinued. Rx keflex dispensed for an extended 10 day course and supportive care reviewed. Call if no improvement. Orders: POCT Urinalysis dipstick Urinalysis W/Reflex to Microscopic & Culture; Future Urine culture (clean catch) (Lab Collect) cephalexin (KEFLEX) 500 mg capsule; Take 1 capsule (500 mg total) by mouth 2 times a day for 10 days. Assessment & Plan (10/01/2024 6:15 PM EDT): [...] Orders: POCT Urinalysis dipstick Generalized osteoarthritis 02/27/2024 Carcinoma in situ of skin of face 11/20/2023 Frequent PVCs 11/11/2023 Assessment & Plan (11/11/2023 12:22 PM EDT): Irregular beat heard on auscultation, EKG in clinic showed NSR with PVCs. Having bilat leg swelling. Holter monitor ordered. Advised to follow up as needed. Alzheimer's dementia without behavioral disturba nce 10/28/2023 Assessment & Plan (11/19/2024 7:54 PM EDT): Stable. Unable to tolerate Namenda due to adverse reaction. Currently at her baseline, A&O x3. MMSE score 26 Sep 2023. 2 points improved on MoCA done through her neurologist October 2023. Follow up with neurology as recommended. Assessment & Plan (10/01/2024 6:15 PM EDT): Stable. Unable to tolerate Namenda due to adverse reaction. Currently at her baseline, A&O x3. MMSE score 26 Sep 2023. 2 points improved on MoCA done through her neurologist October 2023. Follow up with neurology as recommended. Assessment & Plan (08/23/2024 7:51 PM EDT): Stable. Unable to tolerate Namenda due to adverse reaction. Currently at her baseline, A&O x3. MMSE score 26 Sep 2023. 2 points improved on MoCA done through her neurologist October 2023. Follow up with neurology as recommended. Assessment & Plan (05/08/2024 6:53 PM EST): Stable. Unable to tolerate Namenda due to adverse reaction. Currently at her baseline, A&O x3. MMSE score 26 Sep 2023. 2 points improved on MoCA [...] Plan (06/14/2023 4:56 PM EST): Follows with [facility] neurologist. Advised medication for dementia and [...] needed. Hypertension, essential 04/01/2023 Assessment & Plan (11/19/2024 7:54 PM EDT): BP at goal. Higher BP goals acceptable for her advanced age. Adverse reactions to amlodipine, losartan and hydrochlorothiazide. Consider hydralazine, cardiology referral. Low sodium diet. BP check in 3 months with repeat labs. Assessment & Plan (10/01/2024 6:15 PM EDT): [...] 03/16/2023 Hypothyroidism (acquired) 03/16/2023 Assessment & Plan (11/19/2024 7:54 PM EDT): Chronically suppressed TSH. Managed with [employer] Thyroid 90 mg daily by endocrinology. She declines reduction in her dose as recommended by endocrinology. She has re-established with assistant education director Dr. Chaudhry located on [facility] [place]. Records requested. Assessment & Plan (10/01/2024 6:15 PM EDT): Chronically suppressed TSH. Managed with [employer] Thyroid 90 mg daily by endocrinology. She declines reduction in her dose as recommended by endocrinology. Plans to be establishing with new assistant education director. Assessment & Plan (08/23/2024 7:51 PM EDT): Clinically euthyroid. Managed with [employer] Thyroid 120 mg daily by endocrinology. Will be established with new assistant education director in [place] Dr. Chaudhry in March. Assessment & Plan (05/08/2024 6:53 PM EST): Clinically euthyroid. Managed with [employer] Thyroid 120 mg daily by endocrinology. Will be established with new assistant education director in [place] Dr. Chaudhry in March. Assessment & Plan (02/27/2024 6:31 PM EDT): Clinically euthyroid. Managed with [employer] Thyroid 120 mg daily by endocrinology. Will be established with new assistant education director in [place] Dr. Chaudhry in March. Assessment & Plan (11/11/2023 12:20 PM EDT): Recent TSH 0.014, repeat TSH ordered. Assessment & Plan (09/15/2023 8:13 PM EDT): Clinically euthyroid. Managed with [employer] Thyroid 120 mg daily by endocrinology. Assessment & Plan (03/29/2023 7:44 PM EST): Managed with [employer] Thyroid 120 mg daily by endocrinology. Low back pain 03/16/2023 Mixed incontinence urge and stress 03/16/2023 Osteoporosis 03/16/2023 Assessment & Plan (11/19/2024 7:54 PM EDT): Managed with [employer] by delinquent tax collector Dr. Matthew Ortiz in [place], [place]. Assessment & Plan (10/01/2024 6:15 PM EDT): Managed with [employer] by delinquent tax collector Dr. Matthew Ortiz in [place]. Assessment & Plan (08/23/2024 7:51 PM EDT): Managed with [employer] by delinquent tax collector Dr. Matthew Ortiz in [place]. Assessment & Plan (05/08/2024 6:53 PM EST): Managed with [employer] by delinquent tax collector Dr. Matthew Ortiz in [place]. Assessment & Plan (02/27/2024 6:31 PM EDT): Managed with [employer] by delinquent tax collector Dr. Matthew Ortiz in [place]. Dizziness 03/16/2023 Assessment & Plan (11/11/2023 12:23 PM EDT): Dizziness upon sitting up with recent submersion of head underwater, suspect inner ear/vertigo symptoms. Advised sitting up slowly. Follow up if symptoms persist or worsen. 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 Follows with dermatology Sensorineural hearing loss 02/11/2018 Overview (02/27/2024): Follows with ENT Atypical chest pain 04/12/2017 Overview (02/27/2024): S/p chemical stress inconclusive, echo stress deferred by patient. 04/17/2017 Epidermoid cyst of skin 11/22/2015 Squamous cell cancer of scalp and skin of neck 0 11/24/2013 Inflamed seborrheic keratosis 10/01/2013 Osteoarthritis of left knee 11/03/2012 Overview (02/27/2024): Follows with orthopedics As well as the arthritis treatment center in [place] Assessment & Plan (11/19/2024 7:54 PM EDT): Follows with ortho. Xray left knee done 03/18/24 showed tricompartmental OA. Received cortisone injection. Recently evaluated by ortho/pain management at [facility], plans for possible RFA. Assessment & Plan (04/03/2024 12:13 PM EST): Follows with ortho. Xray left knee done 03/18/24 showed tricompartmental OA. Received cortisone injection. Multiple chemical sensitivity syndrome 9 Overview (02/27/2024): Sensitive to smoke, ppd, [...] difficulty driving places as she drives to [place] frequently. Discussed plan of MRI brain with blood work. RTO 3 days for follow up and review of results. Alarm signs and symptoms reviewed and when to seek emergency care. Blurry vision 03/16/2023 02/27/2024 COVID-19 03/16/2023 03/16/2023 Major depression 03/16/2023 03/16/2023 Overweight (BMI 25.0-29.9) 03/16/2023 0 11/11/2023 Saliva increased 03/16/2023 03/16/2023 Swelling of left lower extremity 03/16/2023 03/16/2023 Lump in neck 03/16/2023 11/11/2023 Encounters Date Type Department Care Team Description 11/19/2024 1:00 PM EDT Office Visit [address] Practice Department [address] [place] [phone] Yanelis Kline DO Recurrent UTI (Primary Dx); Osteoarthritis of left knee, unspecified osteoarthritis type; Hypertension, essential; Hypothyroidism (acquired); Osteoporosis, unspecified osteoporosis type, unspecified pathological fracture presence; Alzheimer's dementia without behavioral disturbance (HCC) 11/18/[address] Practice Department [address] [place] [phone] Yanelis Kline DO 10/15/[address] Practice Department [address] [place] [phone] Yanelis Kline DO [place] Referral 10/13/2024 myChart Message [address] Department [address] [place] [phone] Yanelis Kline DO Medical Referral 10/01/2024 4:00 PM EDT Office Visit [address] Department [address] [place] [phone] Yanelis Kline DO Recurrent UTI (Primary Dx); Hypertension, essential; Hypothyroidism (acquired); Osteoporosis, unspecified osteoporosis type, unspecified pathological fracture presence; Alzheimer's dementia without behavioral disturbance (HCC); Dysuria 09/23/2024 myChart Message [address] Department [address] [place] [phone] Armandt, Generic Provider Appointment 09/23/[address] [phone] Yanelis Kline DO Patient Medication Question from Last 3 Months Immunizations Immunization Administration Dates Next Due Covid-19 Monovalent Vaccine, Moderna, mRNA, PF 05/16/2021,01/03/2021,12/06/2020 Influenza, Trivalent, Adjuvanted, PF 02/27/2024( Deferred: Patient decision) Pneumococcal Polysaccharide Vaccine, 23 Valent 08/28/2004 Pneumococcal conjugate PCV20,polysaccharide [id number] conjugate, adjuvant, PF (Prevnar 20) 02/27/2024(Deferred: Patient decision) Td(Adult) Unspecified Formulation 12/19/2012 Tetanus and Diphtheria Toxoi ds, Adsorbed, Preservative Free (2 Lf of Tetanus Toxoid and 2 Lf of Diphtheria Toxoid) 02/27/2024(Deferred: Patient decision),12/19/2012 Tuberculin Skin Test; Purifi ed Protein Derivative Solution, Intradermal 08/22/2000 Social History Tobacco Use Types Packs/Day Years Used Date Smoking Tobacco: Former Cigarettes Smokeless Tobacco: Never Tobacco Cessation:Counseling Given: Not Answered Comments:: Alcohol Use Standard Drinks/Week Comments Not Currently 0 (1 standard drink = 0.6 oz pur e alcohol) [facility] Utilities Answer Date Recorded In the past 12 months has th e electric, gas, oil, or water company threatened to shut off services in your home? No 11/19/2024 Hunger Vital Sign Answer Date Recorded Within the past 12 months, y ou worried that your food would run out before you got the money to buy more. Never true 11/20/19 25 Within the past 12 months, t he food you bought just didn't last and you didn't have money to get more. Never true 11/19/2024 Transportation Answer Date Recorded In the past 12 months, has l ack of reliable transportation kept you from medical appointments, meetings, work or from getting things needed for daily living? No 11/19/2024 Housing Answer Date Recorded Housing Risk Low 2 11/19/2024 Housing Risk Medium Not on file 11/19/2024 Housing Risk High Not on file 11/19/2024 What is your living situation today? LSSTEADY 11/19/2024 Comments No Sex and Gender Information Value Date Recorded Sex Assigned at Female 03/29/2023 2:10 PM EST Legal Sex Female 12:14 AM EDT Gender Identity Female 06/30/2023 12:47 PM EST Sexual Orientation Choose not to disclose 2023 12:47 PM EST Last Filed Vital Signs Vital Sign Reading Time Taken Comments Blood Pressure 100/62 11/19/2024 1:14 PM EDT Pulse 88 11/19/2024 1:14 PM EDT Temperature 36.7 C (98 F) 11/19/2024 1:14 PM EDT Respiratory Rate 18 06/02/2024 11:0 1 AM EST Oxygen Saturation 98% 11/19/2024 1:14 PM EDT Inhaled Oxygen Concentration - - Weight 50.3 kg (110 lb 12.8 oz) 11/19/2024 1:14 PM EDT Height 147.3 cm (4' 10 ) 11/19/2024 1:14 PM EDT Body Mass Index 23.16 11/19/2024 1:14 PM EDT Plan of Treatment Upcoming Encounters Date Type Department Care Team (Late st Contact Info) Description 01/11/2025 11:00 AM EDT Office Visit [address] Department [address] [place] [phone] Yanelis Kline DO [address] [place] [address] 03/01/2025 10:30 AM EST Office Visit [address] [phone] Paula Carrillo NP [address] [place] [address] 06/03/2025 11:00 AM EST Follow-Up [facility] [address] [place] [phone] Janeth Hidalgo MD [address] [place], [place] [phone] Health Maintenance Due Date Last Done Comments Pneumococcal Vaccine: 50+ Years (2 of 2 - PCV) 08/28/2005 08/28/2004 RSV Vaccine (60+ years old and patients) (1 - 1-dose 75+ series) 2012 DTaP,Tdap,and Td Vaccines (1 - Tdap) 12/20/2012 12/19/2012, 12/19/2012 COVID-19 Vaccine ( - 2023- season) 2023 05/16/2021, 01/03/2021, 12/06/2020 Depression Screening and Follow-Up 04/29/2024 Health Care Proxy Review 04/29/2024 02/27/2024 Influenza Vaccine (#1) 2024 Zoster Vaccines (1 of 2) 02/26/2025 Pos tponed from 1956 (Patient Declined) Fall Risk Screening 08/10/2025 08/10/2024 Basic Metabolic Panel 08/18/2025 08/18/2024 , 11/11/2023, 06/18/2023, Additional history exists Social Drivers of Health Annual Screening 11/19/2025 11/19/2024 Tobacco Screening 04/29/2042 11/19/2024 Osteoporosis Screening Completed , 11/24/2022, 02/28/2021 Alcohol/Substance Use Screening Completed 11/19/2024 Hepatitis B Vaccines Aged Out No long er eligible based on patient's age to complete this topic Procedures * Due to [place] state law, this organization might not be sharing negative HIV tests. Procedure Name Priority Date/Time Associated Diagnosis Comments MONTILLA TOP, URN Routine 11/19/2024 6:19 PM EDT Recurrent UTI UA/CULTURE REFLEX Routine 11/19/2024 6:1 9 PM EDT Recurrent UTI URINALYSIS W/REFLEX TO MICROSCOPIC & CULTURE Routine 11/19/2024 6:19 PM EDT Recurrent UTI URINE CULTURE, ROUTINE Routine 6:19 PM EDT Recurrent UTI POCT URINALYSIS DIPSTICK, NON-INTERFACED Routine 11/19/2024 1:11 PM EDT Recurrent UTI MICROSCOPIC URINALYSIS ONLY Routine 10/01/2024 4:35 PM EDT Dysuria MONTILLA TOP, URN Routine 10/01/2024 4:35 PM EDT Dysuria UA/CULTURE REFLEX Routine 10/01/2024 4:3 5 PM EDT Dysuria URINALYSIS W/REFLEX TO MICROSCOPIC & CULTURE Routine 10/01/2024 4:35 PM EDT Dysuria URINE CULTURE, ROUTINE Routine 5 4:35 PM EDT Dysuria POCT URINALYSIS DIPSTICK, NON-INTERFACED Routine 10/01/2024 3:59 PM EDT Recurrent UTI COMPREHENSIVE METABOLIC PANEL Routine 08/18/2024 9:40 AM EDT Healthcare maintenance DEXA SCAN 11/30/2022 10:31 AM EDT from Last 3 Months or Most Recently Relevant to Health Maintenance Results * Due to [place] state law, this organization might not be sharing negative HIV tests. * Montilla Top, Urine (11/19/2024 6:19 PM EDT) Only the most recent of2 resultswithin the time period is included. Extra Tube Hold for add-ons. 11/19/2024 11:05 PM EDT [facility] Comment:Auto resulted. Urine Urine specimen collection, clean catch / Unknown Non-Blood Collection / Unknown 11/19/2024 6:19 PM EDT 11/19/2024 6:19 PM EDT us Yanelis Kline V, DO LAB URINE ORDERABLES Fin al Result Performing Organization Address City/State/[facility] Co de Phone Number [facility] [address] [facility] [address] [place] [address], [place] [phone] * (ABNORMAL) Urinalysis W/Reflex to Microscopic & Culture (11/19/2024 6:19 PM EDT) Only the most recent of2 resultswithin the time period is included. Color, Urine Yellow Yellow 11/19/2024 6:39 PM EDT [facility] Clarity, Urine Cloudy(A) Clear 11/19/2024 6:39 PM EDT [facility] Specific [place], Urine 1.015 1.005 - 1.030 11/19/2024 6:39 PM EDT [facility] pH, Urine 5.5 5.0 - 8.0 11/19/2024 6:39 PM EDT [facility] Protein, Urine Negative Negative mg/dL 11/19/2024 6:39 PM EDT [facility] Glucose, Urine Negative Negative mg/dL 11/19/2024 6:39 PM EDT [facility] Ketones, Urine Negative Negative mg/dL 11/19/2024 6:39 PM EDT [facility] Bilirubin, Urine Negative Negative 11/19/2024 6:39 PM EDT [facility] Blood, Urine Negative Negative 11/19/2024 6:39 PM EDT [facility] Nitrite, Urine Negative Negative 11/19/2024 6:39 PM EDT [facility] Urobilinogen, Urine 0.2 0.2 - 1.0 E.U./dL 11/19/2024 6:39 PM EDT [facility] Leukocyte Esterase, Urine Negative Negative 11/19/2024 6:39 PM EDT [facility] Urine Urine specimen collection, clean catch / Unknown Non-Blood Collection / Unknown 11/19/2024 6:19 PM EDT 11/19/2024 6:19 PM EDT Narrative [facility] - 11/19/2024 6:39 PM EDT Microscopic not indicated according to established criteria. Some urinalysis results will not meet the criteria for reflex urine culture although certain urine values may be abnormal. Additional testing can be ordered by the provider if clinically warranted. us Yanelis Kline V, LAB URINE ORDERABLES Fin al Result [facility] [address] [place] [address] [address] [place] [address], * Urine culture (clean catch) (Lab Collect) (11/19/2024 6:19 PM EDT) Only the most recent of2 resultswithin the time period is included. Urine Culture 10,000 100,000 CFU/mL mixed gram positives; multiple organisms are present, suggestive of contamination at the time of collection. [place] [facility] 11/21/2024 8:03 AM EDT [facility] Urine Urine specimen collection, clean catch / Unknown Non-Blood Collection / Unknown 11/19/2024 6:19 PM EDT 11/19/2024 6:19 PM EDT Yanelis Kline V, DO LAB MICROBIOLOGY - GENER AL ORDERABLES Final Result [facility] [address] [place] [address] [address] [place] [address], [place] [phone] * POCT Urinalysis dipstick (11/19/2024 1:11 PM EDT) Only the most recent of2 resultswithin the time period is included. Color, UA Yellow Yellow Clarity, UA Clear Clear Glucose, UA Negative Negative mg/dL Bilirubin, UA Negative Negative Ketones, UA Negative Negative mg/dL Spec Grav, UA 1.015 1.005 - 1.030 Blood, UA Negative Negative pH, UA 5.5 5.0 - 8.5 Protein, UA Negative Negative mg/dL Urobilinogen, UA 0.2 0.2 - 1.0 E.U. /dL mg/dL Nitrite, UA Negative Negative Leukocytes, UA Negative Negative Urine 11/19/2024 1:11 PM EDT Yanelis Kline V, DO POINT OF CARE TEST ORDER SHARONDA Final Result * (ABNORMAL) Microscopic Urinalysis Only (10/01/2024 4:35 PM EDT) RBC, Urine None Seen None Seen, 0-2 /HPF 10/01/2024 7:41 PM EDT [facility] WBC, Urine 5-10(A) None Seen, 0-2 /HPF 10/01/2024 7:41 PM EDT [facility] Squamous Epithelial Cells, Urine 3-5 /HPF 10/01/2024 7:41 PM EDT [facility] Calcium Oxalate Crystals, Urine Moderate /HPF 10/01/2024 7:41 PM EDT [facility] Bacteria, Urine Occasional(A ) None Seen /HPF 10/01/2024 7:41 PM EDT [facility] Urine Urine specimen collection, clean catch / Unknown Non-Blood Collection / Unknown 10/01/2024 4:35 PM EDT 10/01/2024 6:58 PM EDT us Yanelis Kline V, DO LAB URINE ORDERABLES Fin al Result [facility] [address] [facility] [address] [place] [address], [place] [phone] * (ABNORMAL) Comprehensive Metabolic Panel (08/18/2024 9:40 AM EDT) NA 140 136 - 145 mmol/L 08/18/2024 12:29 PM EDT [facility] K 4.8 3.5 - 5.1 mmol/L 08/18/2024 12:29 PM EDT [facility] Cl 104 98 - 109 mmol/L 08/18/2024 12:29 PM EDT [facility] CO2 27 22 - 32 mmol/L 08/18/2024 12:29 PM EDT [facility] Anion Gap 14 >=0 08/18/2024 12:29 PM EDT [facility] Glucose 84 60 - 99 mg/dL 08/18/2024 12:29 PM EDT [facility] Creatinine 0.98 0.50 - 1.12 mg/dL 08/18/2024 12:29 PM EDT [facility] Calcium 9.2 8.4 - 10.4 mg/dL 08/18/2024 12:29 PM EDT [facility] Total Protein 5.7(L) 6.6 - 8.7 g/dL 08/18/2024 12:29 PM EDT [facility] Albumin 4.1 3.5 - 5.0 g/dL 08/18/2024 12:29 PM EDT [facility] Bilirubin, Total 0.6 0.2 - 1.2 mg/dL 08/18/2024 12:29 PM EDT [facility] Alkaline Phosphatase 54 40 - 129 U/L 08/18/2024 12:29 PM EDT [facility] AST 19 0 - 33 U/L 08/18/2024 12:29 PM EDT [facility] ALT 8 <=33 U/L 08/18/2024 12:29 PM EDT [facility] BUN 21 8 - 23 mg/dL 08/18/2024 12:29 PM EDT [facility] eGFR 56(L) >=60 mL/min/1. 73m2 08/18/2024 12:29 PM EDT [facility] Comment:The estimated glomer ular filtration [...] - 4.2 g/dL 08/18/2024 12:29 PM EDT [facility] A/G Ratio 2.6 1.5 - 3.0 08/18/2024 12:29 PM EDT [facility] Blood Structure of peripheral vein / Unknown Venipuncture / Unknown 08/18/2024 9:40 AM EDT 08/18/2024 9:45 AM EDT us Yanelis Kline V, LAB BLOOD ORDERABLES Fin al Result [facility] [address] [facility] [address] [place] [address], * Dexa Scan (11/30/2022 10:31 AM EDT) Anatomical Region Laterality Modality Other us Onbase Scan [facility] Final Resu lt from Last 3 Months or Most Recently Relevant to Health Maintenance Insurance MEDICARE [facility] FED[facility] Advance Directives Documents on File Type Date Recorded 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 [place] [address] PCP - General Family Medicine 02/25/23
--- OUTSIDE RECORDS SUMMARY | 2024-12-17 06:06 | XMS_ITS | Clinical Summary ---
Author Organization [address] Address [address] [place] [phone] Phone Care Team Providers Care Manager Of Revenue Name Role Phone Ling Muller MD Primary Care Provider [phone] Surgical History Surgery Date Site/Laterality Comments OTHER SURGICAL HISTORY PROCEDURE: HISTORICAL MELANOMA OTHER SURGICAL HISTORY 2003 PROCEDURE: [place] ARTHRS KNEE W/MENISCECTOMY MED&LAT W/SHAVING; COMMENT: left ESOPHAGOGASTRODUODENOSCOPY 07/17/2005 PROCEDURE: MO EGD TRANSORAL BIOPSY SINGLE/MULTIPLE; COMMENT: celiac disease COLONOSCOPY 07/17/2008 PROCEDURE: [place] COLONOSCOPY FLX DX W/COLLJ SPEC WHEN PFRMD; [...] Health Maintenance Due Date Last Done Comments Zoster Vaccines (1 of 2) 1987 Pneumococcal Vaccine: 50+ Ye ars (2 of 2 - PCV) 08/28/2005 08/28/2004 RSV Immunization Adult Patie nts (1 - 1-dose 75+ series) 2012 DTaP,Tdap,and Td Vaccines (2 - Td or Tdap) 12/19/2022 12/19/2012 COVID-19 Vaccine (2023-2 5 season) 2023 Falls Risk Assessment 03/22/2024 Medicare Annual Wellness [...] T score at or below -2.5. [facility] Department of Internal Medicine recommends using National [...] alternative screening schedule based on magali Bates., [facility] May 17, 2011 for patients with osteopenia [...] T score at or below -2.5. [facility] Department of Internal Medicine recommendsusing National Osteoporosis [...] BMD testingevery 15 years Ling Muller MD IMG DXA PROCEDURES Final Res ult from Last 3 Months or Most Recently Relevant to Health Maintenance Insurance MEDICARE [facility] Care Teams Manager Of Revenue Relationship Specialty Start Date End Date Ling Muller MD [phone] (work) PCP - General Internal Medicine 02/28/16
== END 2024-12-17 06:05 | disposition home or self-care (01) ==
LOC: CF 06:04
PROVIDERS: Visit Provider Internal Medicine
DX: M25.562 Pain in left knee (principal)
CPT/HCPCS: 64450; J2795

== ENCOUNTER 2024-12-17 08:37 | Outpatient (AMB) | payer MEDICARE, BC, SELFPAY ==
[2024-12-17 08:47] VITALS: BP 138/71; PULSE 89; RESP 16; O2SAT 98; BMI 23.0
--- NOTE | 2024-12-17 08:47 | MHC.OFFVIS ---
Vital Signs 12/17/24 08:47 Height 4 ft 10 in Weight 110 lb BMI 23.0 BP 138/71 Blood Pressure Location Lt brachial Position Sitting Respiration 16 Pulse 89 Pulse Source Pulse Oximeter Pulse Oximetry (%) 98 Oxygen Delivery Method Room Air Intake Visit Reasons: Left Dx GNB Allergies acetaminophen (Vicodin) Allergy (Unknown, Verified 11/17/24 10:22) Unknown dexamethasone (TobraDex) Allergy (Unknown, Verified 11/17/24 10:22) Unknown erythromycin base Allergy (Unknown, Verified 11/17/24 10:22) Unknown fentanyl Allergy (Unknown, Verified 11/17/24 10:22) Vomiting hydrocodone (Vicodin) Allergy (Unknown, Verified 11/17/24 10:22) Unknown risedronate sodium (Actonel) Allergy (Unknown, Verified 11/17/24 10:22) Unknown Sulfa (Sulfonamide Antibiotics) Allergy (Unknown, Verified 11/17/24 10:22) Unknown sulfamethoxazole (From Bactrim) Allergy (Unknown, Verified 11/17/24 10:22) Unknown theophylline Allergy (Unknown, Verified 11/17/24 10:22) Unknown tobramycin (TobraDex) Allergy (Unknown, Verified 11/17/24 10:22) Unknown trimethoprim (From Bactrim) Allergy (Unknown, Verified 11/17/24 10:22) Unknown Anesthesia Extension Set Allergy (Unknown, Uncoded 11/17/24 10:22) Unknown Codeine Phosphate Allergy (Unknown, Uncoded 11/17/24 10:22) Vomiting Floweree-Heel Allergy (Unknown, Uncoded 11/17/24 10:22) Unknown HPI HPI Left Dx GNB: Details: Patient presents for scheduled procedure. Denies any recent cough, cold, infection, fever or other significant changes in medical history since last office visit. PFSH Medical History Left knee pain Multiple drug allergies Osteoarthritis Celiac disease Multiple chemical sensitivity syndrome Depression Surgical History Hx of appendectomy H/O total hysterectomy with bilateral salpingo-oophorectomy (BSO) Social History Alcohol intake: unknown Patient Tobacco Use Status: Former Tobacco user Physical Exam Vital Signs: Last Vital Signs Pulse 89 12/17/24 08:47 Resp 16 12/17/24 08:47 BP 138/71 12/17/24 08:47 Pulse Ox 98 12/17/24 08:47 Oxygen Delivery Method Room Air 12/17/24 08:47 BMI result Body Mass Index 23.0 Office Procedures Nerve Block Details: Left adductor canal saphenous nerve block, ultrasound-guided After obtaining written consent, pre-procedure blood pressure and heart rate were stable and recorded in the nursing record. The patient was placed supine on the table. The medial thigh area overlying the adductor canal was widely prepped with chloraprep, allowed to dry and sterilely draped. Using ultrasound, the appropriate landmarks including the femoral artery and saphenous nerve were identified. The skin overlying the target was anesthetized with 0.5% lidocaine. A 21 gauge 80 mm echostim needle was advanced under sonographic guidance to the adductor canal. Aspiration was negative for heme and synovial fluid. 10 cc of ropivacaine 0.25%? was injected around the saphenous nerve. The needles were removed, skin cleansed and a sterile bandage was applied. The patient tolerated the procedure well and no complications were encountered. Following the procedure the patient's vital signs and knee strength were stable. The patient was discharged home in good condition with post-procedural instructions. Time Out: Immediately prior to the procedure, the following was verbally confirmed that there is a signed consent form and that the correct patient, planned procedure, site and side are consistent with documentation and that necessary equipment and/or blood products are available prior to the start of the case. Complications: none EBL: <1 cc 30738 - Femoral (adductor injection) Procedure code (CPT) selection complete Assessment & Plan Assessment & Plan (1) Left knee pain: Code(s): M25.562 - Pain in left knee Category: Medical Plan Patient is status post left diagnostic saphenous nerve block. Patient tolerated procedure well and was discharged home in stable condition with discharge instructions. All questions were answered. We will follow-up via telephone or in clinic to assess response to therapy. A follow-up appointment was made during today's visit. Orders: Orders FL guidance in treatment room Today Marimar Josue APRN, FIELD SUPPORT REPRESENTATIVE M25.562 - Pain in left knee AMB Nerve Block Today Radhames Benavides MD M25.562 - Pain in left knee Coding Level of Care Code Procedure Only Diagnoses Left knee pain M25.562 CPT Codes Nerve Block - Nerve Block 7: 64689 - Femoral (adductor injection) ([id number])
== END 2024-12-17 09:59 | disposition home or self-care (01) ==
LOC: HO.PMCPRC 08:37
PROVIDERS: PCP Family Medicine; Visit Provider Internal Medicine
DX: M25.562 Pain in left knee (principal)
CPT/HCPCS: 64450; 76942

== ENCOUNTER 2024-12-24 08:15 | Outpatient (REF) | payer MEDICARE, BC, SELFPAY ==
--- OUTSIDE RECORDS SUMMARY | 2024-12-24 08:46 | XMS_ITS | Encounter Summary ---
Author Organization [facility] Address [address] [place] [address] Care Team Providers Care Telesales Professional Name Role Phone Raisa Ortez DO, Diana Primary Care Provider + Reason for Visit * Reason Onset Date Comments UTI 12/23/2024 Encounter Details Date Type Department Care Team (Late st Contact Info) Description 12/23/[address] Family Practice Department [address] [place] [address] Yanelis Kline DO [address] [place] [address] UTI Social History Tobacco Use Types Packs/Day Years Used Date Smoking Tobacco: Former Cigarettes Smokeless Tobacco: Never Comments:: Alcohol Use Standard Drinks/Week Comments Not Currently 0 (1 standard drink = 0.6 oz pur e alcohol) [facility] Utilities Answer Date Recorded In the past 12 months has [email or web address], gas, oil, or water [employer] threatened to shut off services in your [...] not to disclose 2023 12:47 PM EST documented as of this encounter Miscellaneous Notes * Telephone Encounter - Lisette Santos RN - 12/23/2024 4:34 PM EDT Call to patient, per clinic receptionist pt has no HIPAA or verbal release. She states he son says we should be able to see her and she shouldn't have to go to UC. Advised there is a 3:30 cancellation tomorrow since her original call, appt scheduled. * Telephone Encounter - Enedina Correa - 12/23/2024 4:14 PM EDT Pt granddaughter Nani is calling on this matter as she doesn't want to take pt to UCC or ER to have this done as she is afriad of pt getting covid. Nani is wondering if a order could be placed for a UA and enriqueta as she doesn't want pt to end up in the hospital again Nani would like a cb at [phone] * Telephone Encounter - Laureen Cintron MA - 12/23/2024 12:49 PM EDT Advised urgent care. Pt agrees but states she will wait to go until tomorrow as her company just showed up to go to lunch. * Telephone Encounter - Gisele Mcqueen - 12/23/2024 12:00 PM EDT Pt calling as she is having SX of a UTI again, pt says she has had about 4-5 this year and is wondering if she needs to be tested again to be treated. Please advise as pt has been having sx this timearound for about a week and pt does not want to wait another day. Please advise Pharm: Omid Summers Pt cb# [phone] documented in this encounter Plan of Treatment Upcoming Encounters Date Type Department Care Team (Late st Contact Info) Description 12/24/2024 3:30 PM EDT Office Visit [address] Practice Department [address] [place] [phone] Aimee Dimas NP [address] [place] [phone] 01/11/2025 11:00 AM EDT Office Visit [address] Practice Department [address] [place] [phone] Yanelis Kline DO [address] [place] [phone] 03/01/2025 10:30 AM EST Office Visit [address] Family Practice Department [address] [place] [phone] Paula Carrillo, NICOL [address] [place] [phone] 06/03/2025 11:00 AM EST Follow-Up [facility] Neurology [address] [place] [phone] Janeth Hidalgo MD [address] [place] [address] [phone] documented as of this encounter Visit Diagnoses Not on filedocumented in this encounter Care Teams Telesales Professional Relationship Specialty Start Date End Date Yanelis Kline DO [address] [place] [phone] PCP - General Family Medicine 02/25/23 documented as of this encounter
--- OUTSIDE RECORDS SUMMARY | 2024-12-24 08:46 | XMS_ITS | Encounter Summary ---
Author Organization [facility] Address [address] [place] [address] Care Team Providers Care Can Bander Operator Name Role Phone Raisa Ortez DO, Diana Primary Care Provider + Encounter Details Date Type Department Care Team (Late st Contact Info) Description 04/12/2023 Lab Requisition [facility] Lab [address] [place] [address] Paula Carrillo NP [address] [place] [address] Dysuria; Unspecified abnormal findings in urine Social History Tobacco Use Types Packs/Day Years Used Date Smoking Tobacco: Former Cigarettes Smokeless Tobacco: Never Comments:: Alcohol Use Standard Drinks/Week Comments Not Currently 0 (1 standard drink = 0.6 oz pur e alcohol) Comments No Sex and Gender Information Value Date Recorded Sex Assigned at Female 03/29/2023 2:10 PM EST Legal Sex Female 12:14 AM EDT Gender Identity Female 06/30/2023 12:47 PM EST Sexual Orientation Choose not to disclose 2023 12:47 PM EST documented as of this encounter Plan of Treatment Upcoming Encounters Date Type Department Care Team (Late st Contact Info) Description 12/24/2024 3:30 PM EDT Office Visit [address] Family Practice Department [address] [place] [address] [phone] Aimee Dimas, NICOL [address] [place] [phone] 01/11/2025 11:00 AM EDT Office Visit [address] Practice Department [address] [place] [phone] Yanelis Kline DO [address] [place], [place] [phone] 03/01/2025 10:30 AM EST Office Visit [address] Practice Department [address] [place] [phone] Paula Carrillo NP [address] [place] [phone] 06/03/2025 11:00 AM EST Follow-Up [facility] Neurology [address] [place] [phone] Janeth Hidalgo MD [address] [place] [phone] documented as of this encounter Procedures * Due to [facility] law, this organization might not be sharing negative HIV tests. Procedure Name Priority Date/Time Associated Diagnosis Comments URINALYSIS W/REFLEX TO MICROSCOPIC & CULTURE Routine 04/12/2023 6:41 PM EST Dysuria Unspecified abnormal findings in urine MONTILLA TOP, URN Routine 04/12/2023 6:41 PM EST Dysuria Unspecified abnormal findings in urine URINE CULTURE, ROUTINE Routine 04/12/2023 6:41 PM EST Unspecified abnormal findings in urine documented in this encounter Results * Due to [facility] law, this organization might not be sharing negative HIV tests. * Urine Culture, Routine (04/12/2023 6:41 PM EST) Urine Culture 10,000 100,000 CFU/mL mixed gram positives; multiple organisms are present, suggestive of contamination at the time of collection. [facility] 04/14/2023 7:38 AM EST [facility] Urine 04/12/2023 6:41 PM EST 04/12/2023 6:41 PM EST Paula Carrillo TABLE GAMES DUAL RATE SUPERVISOR LAB MICROB IOLOGY - GENERAL ORDERABLES Edited Result - Final Performing Organization Address [facility]/ZIP Co de Phone Number [facility] [address] [address], [place] [phone] * Montilla Top, Urine (04/12/2023 6:41 PM EST) Extra Tube Hold for add-ons. [facility] 04/14/2023 7:39 AM EST [facility] Comment:Auto resulted. Urine 04/12/2023 6:41 PM EST 04/12/2023 6:41 PM EST Paula Carrillo TABLE GAMES DUAL RATE SUPERVISOR LAB URINE ORDERABL ES Final Result Performing Organization Address [facility] de Phone Number [facility] [address] [address], [place] [phone] documented in this encounter Visit Diagnoses Diagnosis Dysuria Unspecified abnormal findings in urine documented in this encounter Care Teams Can Bander Operator Relationship Specialty Start Date End Date Yanelis Kline DO [facility] [place] [address] PCP - General Family Medicine 02/25/23 documented as of this encounter
--- OUTSIDE RECORDS SUMMARY | 2024-12-24 08:46 | XMS_ITS | Clinical Summary ---
Author Organization [address] Address [address] [place] [phone] Phone Care Team Providers Care Business Process Architect Name Role Phone Ling Muller MD Primary Care Provider Surgical History Surgery Date Site/Laterality Comments OTHER SURGICAL HISTORY PROCEDURE: HISTORICAL MELANOMA OTHER SURGICAL HISTORY 2003 PROCEDURE: [place] ARTHRS KNEE W/MENISCECTOMY MED&LAT W/SHAVING; COMMENT: left ESOPHAGOGASTRODUODENOSCOPY 07/17/2005 PROCEDURE: [place] EGD TRANSORAL BIOPSY SINGLE/MULTIPLE; COMMENT: celiac disease COLONOSCOPY 07/17/2008 PROCEDURE: [place] COLONOSCOPY FLX DX W/COLLJ SPEC WHEN PFRMD; [...] T score at or below -2.5. [facility] Department of Internal Medicine recommends using National [...] screening schedule based on magali Bates., [facility] May 17, 2011 for patients with osteopenia [...] T score at or below -2.5. [facility] Department of Internal Medicine recommendsusing National Osteoporosis [...] Recently Relevant to Health Maintenance Insurance MEDICARE [facility] Care Teams Business Process Architect Relationship Specialty Start Date End Date Ling Muller MD [phone] (work) PCP - General Internal Medicine 02/28/16
--- OUTSIDE RECORDS SUMMARY | 2024-12-24 08:46 | XMS_ITS | Clinical Summary ---
Author Organization [facility] Address [address] [place] [address] Care Team Providers Care Bale Tie Machine Operator Name Role Phone Raisa Ortez DO, [...] mg by mouth once a day. Active owqxyfms-khi-E N-dsjwfrn-bsba in 0.4 mg-300 mcg- 250 mcg tablet Take 1 tablet by mouth once a day. Active omega-3 fatty acids 1,000 mg capsule Take 1,000 mg by mouth once a day. Active magnesium oxide 400 mg magnesium tablet Take 400 mg by mouth once a day. Active selenium sulfide (SELSUN) 2.5 % lotion SMARTSIG:Topical 3 Active Vitamin D3 25 mcg (1,000 unit) [...] is for a schedule II opioid drug. 5 Active cephalexin (KEFLEX) 500 mg capsuleIndicat ions:Recurrent UTI Take 1 capsule (500 mg total) by mouth 2 times a day for 10 days. 20 capsule 5 11/30/19 25 Active Problems Problem Noted Date Diagnosed Date [...] Plan (06/14/2023 4:56 PM EST): Follows with [facility] neurologist. Advised medication for dementia and son [...] PM EDT): Chronically suppressed TSH. Managed with [employer] Thyroid 90 mg daily by endocrinology. She declines reduction in her dose as recommended by endocrinology. She has re-established with healthcare administrator Dr. Chaudhry located on [facility] [place]. Records requested. Assessment & Plan (10/01/2024 6:15 PM EDT): Chronically suppressed TSH. Managed with [employer] Thyroid 90 mg daily by endocrinology. She declines reduction in her dose as recommended by endocrinology. Plans to be establishing with new healthcare administrator. Assessment & Plan (08/23/2024 7:51 PM EDT): Clinically euthyroid. Managed with [employer] Thyroid 120 mg daily by endocrinology. Will be established with new healthcare administrator in [place] in March. Assessment & Plan (05/08/2024 6:53 PM EST): Clinically euthyroid. Managed with [employer] Thyroid 120 mg daily by endocrinology. Will be established with new healthcare administrator in [place] in March. Assessment & Plan (02/27/2024 6:31 PM EDT): Clinically euthyroid. Managed with [employer] Thyroid 120 mg daily by endocrinology. Will be established with new healthcare administrator in [place] in March. Assessment & Plan (11/11/2023 12:20 PM EDT): Recent TSH 0.014, repeat TSH ordered. Assessment & Plan (09/15/2023 8:13 PM EDT): Clinically euthyroid. Managed with [employer] Thyroid 120 mg daily by endocrinology. Assessment & Plan (03/29/2023 7:44 PM EST): Managed with [employer] Thyroid 120 mg daily by endocrinology. Low back pain 03/16/2023 Mixed incontinence urge and stress 03/16/2023 Osteoporosis 03/16/2023 Assessment & Plan (11/19/2024 7:54 PM EDT): Managed with [employer] by preform plate maker Dr. Matthew Ortiz in [place], [place]. Assessment & Plan (10/01/2024 6:15 PM EDT): Managed with [employer] by preform plate maker Dr. Matthew Ortiz in [place]. Assessment & Plan (08/23/2024 7:51 PM EDT): Managed with [employer] by preform plate maker Dr. Matthew Ortiz in [place]. Assessment & Plan (05/08/2024 6:53 PM EST): Managed with [employer] by preform plate maker Dr. Matthew Ortiz in [place]. Assessment & Plan (02/27/2024 6:31 PM EDT): Managed with [employer] by preform plate maker Dr. Matthew Ortiz in [place]. Dizziness 03/16/2023 Assessment & Plan (11/11/2023 [...] well as the arthritis treatment center in [place] Assessment & Plan (11/19/2024 7:54 PM EDT): Follows with ortho. Xray left knee done 03/18/24 showed tricompartmental OA. Received cortisone injection. Recently evaluated by ortho/pain management at [facility], plans for possible RFA. Assessment & Plan [...] difficulty driving places as she drives to [place] frequently. Discussed plan of MRI brain with [...] Encounters Date Type Department Care Team Description 12/23/[address] [address] Yanelis Kline V DO UTI 11/19/2024 1:00 PM EDT Office Visit [address] [address] Yanelis Kline V DO Recurrent UTI (Primary Dx); Osteoarthritis of left knee, unspecified osteoarthritis type; Hypertension, essential; Hypothyroidism (acquired); Osteoporosis, unspecified osteoporosis type, unspecified pathological fracture presence; Alzheimer's dementia without behavioral disturbance (HCC) 11/18/[address] [address] Yanelis Kline DO 10/15/[address] Practice Department [address] [place] [phone] Yanelis Kline DO [place] Referral 10/13/2024 myChart Message [address] Department [address] [place] [phone] Yanelis Kline DO Medical Referral 10/01/2024 4:00 PM EDT Office Visit [address] Department [address] [place] [phone] Yanelis Kline DO Recurrent UTI (Primary Dx); Hypertension, essential; Hypothyroidism (acquired); Osteoporosis, unspecified osteoporosis type, unspecified pathological fracture presence; Alzheimer's dementia without behavioral disturbance (HCC); Dysuria 09/23/2024 myChart Message [address] Practice Department [address] [place] [address] [place], Generic Provider Appointment 09/23/[address] Department [address] [place] [address] Yanelis Kline DO Patient Medication Question from Last 3 Months Immunizations Immunization Administration Dates Next Due Covid-19 Monovalent Vaccine, Moderna, mRNA, PF 05/16/2021,01/03/2021,12/06/2020 Influenza, Trivalent, Adjuvanted, PF 02/27/2024( Deferred: Patient decision) Pneumococcal Polysaccharide Vaccine, 23 Valent 08/28/2004 Pneumococcal conjugate PCV20,polysaccharide [id number] conjugate, adjuvant, PF (Prevnar 20) 02/27/2024(Deferred: Patient [...] drink = 0.6 oz pur e alcohol) [facility] Utilities Answer Date Recorded In the past 12 months has th e [employer], gas, oil, or water [employer] threatened to shut off services in your [...] Description 12/24/2024 3:30 PM EDT Office Visit [address] [address] Aimee Dimas, NICOL [address] [place] [address] 01/11/2025 11:00 AM EDT Office Visit [address] [address] Yanelis Kline DO [address] [place] [phone] 03/01/2025 10:30 AM EST Office Visit [address] [address] Paula Carrillo, NICOL [address] [place] [phone] 06/03/2025 11:00 AM EST Follow-Up [facility] Neurology [address] [place] [address] Janeth Hidalgo MD [address] [place] [address] Health Maintenance Due Date Last Done Comments Pneumococcal Vaccine: 50+ Years (2 of 2 - PCV) 08/28/2005 08/28/2004 RSV Vaccine (60+ years old and patients) (1 - 1-dose 75+ series) 2012 DTaP,Tdap,and Td Vaccines (1 - Tdap) 12/20/2012 12/19/2012, 12/19/2012 COVID-19 Vaccine (4 - season) 2023 05/16/2021, 01/03/2021, 12/06/2020 Depression Screening [...] complete this topic Procedures * Due to [place] state law, this organization might not be [...] Routine 08/18/2024 9:40 AM EDT Healthcare maintenance HM DEXA SCAN 11/30/2022 10:31 AM EDT from Last 3 Months or Most Recently Relevant to Health Maintenance Results * Due to [place] state law, this organization might not be sharing negative HIV tests. * Montilla Top, Urine (11/19/2024 6:19 PM EDT) Only the most recent of2 resultswithin the time period is included. Extra Tube Hold for add-ons. 11/19/2024 11:05 PM EDT [facility] Comment:Auto resulted. Urine Urine specimen collection, clean catch / Unknown Non-Blood Collection / Unknown 11/19/2024 6:19 PM EDT 11/19/2024 6:19 PM EDT us Yanelis Kline V, DO LAB URINE ORDERABLES Fin al Result [facility] [address] [place] [address], [place] [phone] * (ABNORMAL) Urinalysis W/Reflex to Microscopic & Culture (11/19/2024 6:19 PM EDT) Only the most recent of2 resultswithin the time period is included. Color, Urine Yellow Yellow 11/19/2024 6:39 PM EDT [facility] Clarity, Urine Cloudy(A) Clear 11/19/2024 6:39 PM EDT [facility] Specific [place], Urine 1.015 1.005 - 1.030 11/19/2024 6:39 PM EDT [facility] pH, Urine 5.5 5.0 - 8.0 11/19/2024 6:39 PM EDT [facility] Protein, Urine Negative Negative mg/dL 11/19/2024 6:39 PM EDT [facility] Glucose, Urine Negative Negative mg/dL 11/19/2024 6:39 PM EDT [facility] Ketones, Urine Negative Negative mg/dL 11/19/2024 6:39 PM EDT [facility] Bilirubin, Urine Negative Negative 11/19/2024 6:39 PM EDT [facility] Blood, Urine Negative Negative 11/19/2024 6:39 PM EDT [facility] Nitrite, Urine Negative Negative 11/19/2024 6:39 PM EDT [facility] Urobilinogen, Urine 0.2 0.2 - 1.0 E.U./dL 11/19/2024 6:39 PM EDT [facility] Leukocyte Esterase, Urine Negative Negative 11/19/2024 6:39 PM EDT [facility] Urine Urine specimen collection, clean catch / Unknown Non-Blood Collection / Unknown 11/19/2024 6:19 PM EDT 11/19/2024 6:19 PM EDT [facility] - 11/19/2024 6:39 PM EDT Microscopic not indicated according to established criteria. Some urinalysis results will not meet the criteria for reflex urine culture although certain urine values may be abnormal. Additional testing can be ordered by the provider if clinically warranted. us Yanelis Kline V, DO LAB URINE ORDERABLES Fin al Result [facility] [address] [place] [id number], [place] [phone] * Urine culture (clean catch) (Lab Collect) (11/19/2024 6:19 PM EDT) Only the most recent of2 resultswithin the time period is included. Urine Culture 10,000 100,000 CFU/mL mixed gram positives; multiple organisms are present, suggestive of contamination at the time of collection. [place] MANUAL 11/21/2024 8:03 AM EDT [facility] Urine Urine specimen collection, clean catch / Unknown Non-Blood Collection / Unknown 11/19/2024 6:19 PM EDT 11/19/2024 6:19 PM EDT us Yanelis Ortez DO LAB MICROBIOLOGY - GENER AL ORDERABLES Final Result [facility] [address] [place] [address], [place] [phone] * POCT Urinalysis dipstick (11/19/2024 1:11 PM [...] Negative Negative Urine 11/19/2024 1:11 PM EDT us Yanelis Ortez DO POINT OF CARE TEST ORDER SHARONDA Final Result * (ABNORMAL) Microscopic Urinalysis Only (10/01/2024 4:35 PM EDT) RBC, Urine None Seen None Seen, 0-2 /HPF 10/01/2024 7:41 PM EDT [facility] WBC, Urine 5-10(A) None Seen, 0-2 /HPF 10/01/2024 7:41 PM EDT [facility] Squamous Epithelial Cells, Urine 3-5 /HPF 10/01/2024 7:41 PM EDT [facility] Calcium Oxalate Crystals, Urine Moderate /HPF 10/01/2024 7:41 PM EDT [facility] Bacteria, Urine Occasional(A ) None Seen /HPF 10/01/2024 7:41 PM EDT [facility] Urine Urine specimen collection, clean catch / Unknown Non-Blood Collection / Unknown 10/01/2024 4:35 PM EDT 10/01/2024 6:58 PM EDT us Yanelis Kline V, DO LAB URINE ORDERABLES Fin al Result Performing Organization Address City/State/[facility] Co de Phone Number [facility] [address] [place] [phone], * (ABNORMAL) Comprehensive Metabolic Panel (08/18/2024 9:40 AM EDT) NA 140 136 - 145 mmol/L 08/18/2024 12:29 PM EDT [facility] K 4.8 3.5 - 5.1 mmol/L 08/18/2024 12:29 PM EDT [facility] Cl 104 98 - 109 mmol/L 08/18/2024 12:29 PM EDT [facility] CO2 27 22 - 32 mmol/L 08/18/2024 12:29 PM EDT [facility] Anion Gap 14 >=0 08/18/2024 12:29 PM EDT [facility] Glucose 84 60 - 99 mg/dL 08/18/2024 12:29 PM EDT [facility] Creatinine 0.98 0.50 - 1.12 mg/dL 08/18/2024 12:29 PM EDT [facility] Calcium 9.2 8.4 - 10.4 mg/dL 08/18/2024 12:29 PM EDT [facility] Total Protein 5.7(L) 6.6 - 8.7 g/dL 08/18/2024 12:29 PM EDT [facility] Albumin 4.1 3.5 - 5.0 g/dL 08/18/2024 12:29 PM T [facility] Bilirubin, Total 0.6 0.2 - 1.2 mg/dL 08/18/2024 12:29 PM EDT [facility] Alkaline Phosphatase 54 40 - 129 U/L 08/18/2024 12:29 PM EDT [facility] AST 19 0 - 33 U/L 08/18/2024 12:29 PM EDT [facility] ALT 8 <=33 U/L 08/18/2024 12:29 PM T [facility] BUN 21 8 - 23 mg/dL 08/18/2024 12:29 PM T [facility] eGFR 56(L) >=60 mL/min/1. 73m2 08/18/2024 12:29 PM T [facility] Comment:The estimated glomer ular filtration rate (eGFR) is calculated using a new formula developed by the NKF-ASN task force to eliminate race-based correction factors. The new formula uses serum/plasma creatinine, age, and gender to determine eGFR. A value below 60mls/min might indicate kidney disease and will be flagged. For additional information, see Vuong et al, Am J Kidney Dis. 2021;79(2):268- 288, A Unifying Approach for GFR estimation: Recommendations of the NKF-ASN Task Force on Reassessing the Inclusion of Race in Diagnosing Kidney Disease . Globulin, Total 1.6(L) 2.1 - 4.2 g/dL 08/18/2024 12:29 PM T [facility] A/G Ratio 2.6 1.5 - 3.0 08/18/2024 12:29 PM [facility] Blood Structure of peripheral vein / Unknown Venipuncture / Unknown 08/18/2024 9:40 AM EDT 08/18/2024 9:45 AM EDT us Yanelis Kline V, LAB BLOOD ORDERABLES Fin al Result [facility] [address] [place] [address], [place] [phone] * Dexa Scan (11/30/2022 10:31 AM EDT) Anatomical Region Laterality Modality Other us Onbase Scan [facility] HEALTH MAINTENANCE Final Resu lt from Last 3 Months or Most Recently Relevant to Health Maintenance Insurance MEDICARE [facility] Advance Directives Documents on File Type Date Recorded Patient Mud Boss Expl anation Guardianship 02/05/2024 5:32 PM Guardianship 11/13/2023 2:20 PM 11-13-2023 Guardianship 05/29/2023 3:11 PM 11-17-2019 Power of Booster Plant Operator 05/29/2023 3:11 PM 11-16 Power of Booster Plant Operator 05/24/2023 2:06 PM Health Care Proxy 08/17/2021 Health Care Proxy 08/17/2021 Health Care Proxy 08/17/2021 Health Care Proxy 08/17/2021 Health Care Proxy 08/17/2021 Advance Directive 07/12/2021 10:02 AM Care Teams Bale Tie Machine Operator Relationship Specialty Start Date End Date Yanelis Kline DO [address] [place] [address] PCP - General Family Medicine 02/25/23
--- OUTSIDE RECORDS SUMMARY | 2024-12-24 08:46 | XMS_ITS | Encounter Summary ---
Author Organization [facility] [address] Address [address] [place] [address] Care Team Providers Care Director Of Manufacturing Operations Name Role Phone Ling Muller MD Primary Care Provider [phone] Encounter Details Date Type Department Care Team (Late st Contact Info) Description 06/19/2024 Lab Requisition [facility] [address] [place] [address] Augustus Carrillo MD [address] [address] Other abnormal findings in urine Social History Tobacco [...] on file Sexual Orientation Not on file documented as of this encounter Plan of Treatment Not on file documented as of this encounter Procedures Procedure Name Priority Date/Time Associated Diagnosis Comments CULTURE URINE Routine 06/19/2024 12:00 AM EST Other abnormal findings in urine documented in this encounter Results * Culture urine (06/19/2024 12:00 AM EST) Culture, Urine No growth 06/20/2024 8:56 AM EST [facility] Urine Urine specimen obtained by clean catch procedure / Unknown 06/19/2024 06/19/2024 1:46 PM EST us Augustus Carrillo MD LAB MICROBIOLOGY - G ENERAL ORDERABLES Final Result [facility] [address] [place] [address], documented in this encounter Visit Diagnoses Diagnosis Other abnormal findings in urine documented in this encounter Care Teams Director Of Manufacturing Operations Relationship Specialty Start Date End Date Ling Muller MD PCP - General Internal Medicine 02/28/16 documented as of this encounter
== END 2024-12-24 08:16 | disposition home or self-care (01) ==
LOC: CF 08:15
PROVIDERS: Visit Provider Internal Medicine
DX: M25.562 Pain in left knee (principal)
CPT/HCPCS: 64454; J0665

== ENCOUNTER 2024-12-24 09:03 | Outpatient (AMB) | payer MEDICARE, BC, SELFPAY ==
--- NOTE | 2024-12-24 09:11 | A.OFFVIS_ITS ---
Vital Signs 12/24/24 09:12 12/24/24 09:56 Height 4 ft 10 in 4 ft 10 in Weight 110 lb 110 lb BMI 23.0 23.0 BP 115/70 Blood Pressure Location Lt brachial Position Sitting Respiration 16 Pulse 63 Pulse Source Pulse Oximeter Pulse Oximetry (%) 99 Oxygen Delivery Method Room Air Comment Patient refuse to do second set of vitals Intake Visit Reasons: Repeat Left Dx GNB Allergies acetaminophen (Vicodin) Allergy (Unknown, Verified 11/17/24 10:22) Unknown dexamethasone (TobraDex) Allergy (Unknown, Verified 11/17/24 10:22) Unknown erythromycin base Allergy (Unknown, Verified 11/17/24 10:22) Unknown fentanyl Allergy (Unknown, Verified 11/17/24 10:22) Vomiting hydrocodone (Vicodin) Allergy (Unknown, Verified 11/17/24 10:22) Unknown risedronate sodium (Actonel) Allergy (Unknown, Verified 11/17/24 10:22) Unknown Sulfa (Sulfonamide Antibiotics) Allergy (Unknown, Verified 11/17/24 10:22) Unknown sulfamethoxazole (From Bactrim) Allergy (Unknown, Verified 11/17/24 10:22) Unknown theophylline Allergy (Unknown, Verified 11/17/24 10:22) Unknown tobramycin (TobraDex) Allergy (Unknown, Verified 11/17/24 10:22) Unknown trimethoprim (From Bactrim) Allergy (Unknown, Verified 11/17/24 10:22) Unknown Anesthesia Extension Set Allergy (Unknown, Uncoded 11/17/24 10:22) Unknown Codeine Phosphate Allergy (Unknown, Uncoded 11/17/24 10:22) Vomiting Castana-Heel Allergy (Unknown, Uncoded 11/17/24 10:22) Unknown HPI HPI Repeat Left Dx GNB: Details: Patient presents for scheduled procedure. Denies any recent cough, cold, infection, fever or other significant changes in medical history since last office visit. PFSH Medical History Left knee pain Multiple drug allergies Osteoarthritis Celiac disease Multiple chemical sensitivity syndrome Depression Surgical History Hx of appendectomy H/O total hysterectomy with bilateral salpingo-oophorectomy (BSO) Social History Alcohol intake: unknown Patient Tobacco Use Status: Former Tobacco user Physical Exam Vital Signs: Last Vital Signs Pulse 63 12/24/24 09:12 Resp 16 12/24/24 09:12 BP 115/70 12/24/24 09:12 Pulse Ox 99 12/24/24 09:12 Oxygen Delivery Method Room Air 12/24/24 09:12 BMI result Body Mass Index 23.0 Office Procedures Nerve Block Details: Superior medial, superior lateral, and inferior medial genicular nerves block, Left - Ultrasound Guided After obtaining written consent, pre-procedure blood pressure and heart rate were stable and recorded in the nursing record. The patient was placed supine on the table. The area overlying the peripheral nerves was widely prepped with chloraprep and allowed to dry. Using ultrasound, the appropriate landmarks were identified. A 25 gauge 1.5 inch hypodermic needle was advanced under ultrasound guidance to the appropriate landmark of each peripheral nerve. Aspiration was negative for heme and synovial fluid. 1 cc of bupivacaine 0.5% was injected around each targeted nerve. The needle was removed, skin cleansed and a sterile bandage was applied. The patient tolerated the procedure well and no complications were encountered. Following the procedure the patient's vital signs were stable. The patient was discharged home in good condition with post-procedural instructions. Time Out: Immediately prior to the procedure, the following was verbally confirmed that there is a signed consent form and that the correct patient, planned procedure, site and side are consistent with documentation and that necessary equipment and/or blood products are available prior to the start of the case. Complications: none EBL: <5 cc [id number] Nerve Block Procedure code (CPT) selection complete Assessment & Plan Assessment & Plan (1) Left knee pain: Code(s): M25.562 - Pain in left knee Category: Medical Plan Patient is status post left genicular nerve blocks. Patient tolerated procedure well and was discharged home in stable condition with discharge instructions. All questions were answered. She reported good relief from the diagnostic saphenous block last week. We will compare the results from today's genicular block to that intervention and then we the risks and benefits of potential PNS versus RFA at her follow-up next week. Orders: Orders AMB Nerve Block Today Radhames Benavides MD M25.562 - Pain in left knee FL guidance in treatment room Today Marimar Josue APRN, QUALITY CONTROL LEAD M25.562 - Pain in left knee Coding Level of Care Code Procedure Only Diagnoses Left knee pain M25.562 CPT Codes Nerve Block - Nerve Block: [id number] Nerve Block ([id number])
[2024-12-24 09:12] VITALS: BP 115/70; PULSE 63; RESP 16; O2SAT 99; BMI 23.0
[2024-12-24 09:56] VITALS: BMI 23.0
== END 2024-12-24 10:16 | disposition home or self-care (01) ==
LOC: HO.PMCPRC 09:03
PROVIDERS: PCP Family Medicine; Visit Provider Internal Medicine
DX: M25.562 Pain in left knee (principal)
CPT/HCPCS: 64454

== ENCOUNTER 2024-12-30 10:13 | Outpatient (AMB) | payer MEDICARE, BC, SELFPAY ==
[2024-12-30 10:26] VITALS: BP 128/74; PULSE 80; RESP 16
--- NOTE | 2024-12-30 10:26 | A.OFFVIS_ITS ---
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 Required: No Accompanied by: Grand Child Allergies acetaminophen (Vicodin) Allergy (Unknown, Verified 12/30/24 10:27) Unknown dexamethasone (TobraDex) Allergy (Unknown, Verified 12/30/24 10:27) Unknown erythromycin base Allergy (Unknown, Verified 12/30/24 10:27) Unknown fentanyl Allergy (Unknown, Verified 12/30/24 10:27) Vomiting hydrocodone (Vicodin) Allergy (Unknown, Verified 12/30/24 10:27) Unknown risedronate sodium (Actonel) Allergy (Unknown, Verified 12/30/24 10:27) Unknown Sulfa (Sulfonamide Antibiotics) Allergy (Unknown, Verified 12/30/24 10:27) Unknown sulfamethoxazole (From Bactrim) Allergy (Unknown, Verified 12/30/24 10:27) Unknown theophylline Allergy (Unknown, Verified 12/30/24 10:27) Unknown tobramycin (TobraDex) Allergy (Unknown, Verified 12/30/24 10:27) Unknown trimethoprim (From Bactrim) Allergy (Unknown, Verified 12/30/24 10:27) Unknown Anesthesia Extension Set Allergy (Unknown, Uncoded 12/30/24 10:27) Unknown Codeine Phosphate Allergy (Unknown, Uncoded 12/30/24 10:27) Vomiting [place]el Allergy (Unknown, Uncoded 12/30/24 10:27) Unknown Medication List - Last Reconciled 12/30/24 by Flora Garcia LPN ascorbic acid (vitamin C) mg PO calcium lactate 168 mg PO BID cholecalciferol (vitamin D3) 125 mcg PO DAILY magnesium 400 mg PO DAILY multivitamin 1 tab PO DAILY thyroid (pork) (SUPERVISOR TELEPHONE INFORMATION Thyroid) 90 mg PO DAILY HPI HPI Post op/ Discuss treatments: Details: History of Present Illness The patient is an 89-year-old female presenting with left knee pain. The pain is associated with advanced osteoarthritis, which has progressed over time, making it intolerable for the patient. She has a history of knee injury from 2003, which has gradually worsened due to the [id number] condition. The patient has tried various interventions, including diagnostic nerve blocks, with the saphenous nerve block being more effective than the genicular nerve block. She has also undergone PRP injections and stem cell therapy without significant improvement. The patient is wary of treatments involving electrical devices due to previous adverse reactions. She lives alone but has family support nearby, including her son and granddaughters who assist with her care. She prefers non-invasive treatment options due to concerns about potential side effects. Pain Description - Onset: Pain has been persistent since a knee injury in 2003. - Quality: Described as intolerable due to advanced osteoarthritis. - Location: Primarily in the left knee. - Exacerbating factors: Nvaq-rt-bogh condition worsens the pain. - Relieving factors: Saphenous nerve block provided good relief. Genicular nerve blocks were not as effective. Results Pain Management - Affect: Pain significantly impacts the patient's quality of life, making it intolerable. - Analgesia: Saphenous nerve block was more effective than genicular nerve block. - Adverse Effects: Concerns about reactions to electrical devices due to past experiences. - Activities of Daily Living: Pain limits the patient's ability to tolerate daily activities. - Aberrant Drug Related Behaviors: No evidence of medication misuse or abuse discussed. [facility] Medical History Left knee pain Multiple drug allergies Osteoarthritis Celiac disease Multiple chemical sensitivity syndrome Depression Surgical History Hx of appendectomy H/O total hysterectomy with bilateral salpingo-oophorectomy (BSO) Social History Alcohol intake: unknown Patient Tobacco Use Status: Former Tobacco user Physical Exam Vital Signs: Last Vital Signs Pulse 80 12/30/24 10:26 Resp 16 12/30/24 10:26 BP 128/74 12/30/24 10:26 Assessment & Plan Assessment & Plan (1) Left knee pain: Code(s): M25.562 - Pain in left knee Category: Medical (2) Effusion of left knee joint: Code(s): M25.462 - Effusion, left knee Category: Medical (3) Osteoarthritis of left knee: Code(s): M17.12 - Unilateral primary osteoarthritis, left knee Category: Medical Plan Plan Patient was informed and verbally consented to the use of an ambient scribe for clinic note documentation during this visit. 1. Left Knee Pain - Plan to request insurance authorization for temporary peripheral nerve stimulation of the saphenous nerve for pain management. - Consider PRP injections if PNS therapy is not approved or effective. 2. Advanced Osteoarthritis - Discussed the potential use of PRP injections to manage inflammation and pain. - Evaluated the effectiveness of previous interventions, including nerve blocks and stem cell therapy. Discussion Notes During the visit, we discussed the patient's left knee pain and the potential management options, including the use of a peripheral nerve stimulation device. We reviewed the risks and benefits of this device, emphasizing its temporary nature and low electrical charge, which is unlikely to cause adverse reactions. We also considered PRP injections as an alternative if the device is not approved or effective. The patient expressed concerns about electronic devices due to past experiences, and we reassured her about the safety of the proposed device. We agreed to request insurance authorization for the device and to proceed based on the outcome. Patient Instructions - Await contact regarding insurance authorization for the peripheral nerve stimulation device. - Consider PRP injections if the device is not approved or effective. - Maintain communication with family for support and assistance with device management. Coding Level of Care Code Est Pt Level 3 (30484) Diagnoses Left knee pain M25.562 Effusion of left knee joint M25.462 Osteoarthritis of left knee M17.12
--- OUTSIDE RECORDS SUMMARY | 2024-12-30 11:42 | XMS_ITS | Clinical Summary ---
Author Organization [address] Address [address] [place] [phone] Phone Care Team Providers Care Hot Saw Operator Name Role Phone Ling Muller MD Primary Care Provider Surgical History Surgery Date Site/Laterality Comments OTHER SURGICAL HISTORY PROCEDURE: HISTORICAL MELANOMA OTHER SURGICAL HISTORY 2003 PROCEDURE: [facility]TH[facility] KNEE W/MENISCECTOMY MED&LAT W/SHAVING; COMMENT: left ESOPHAGOGASTRODUODENOSCOPY 07/17/2005 PROCEDURE: [facility] EGD TRANSORAL BIOPSY SINGLE/MULTIPLE; COMMENT: celiac disease COLONOSCOPY 07/17/2008 PROCEDURE: [facility] COLONOSCOPY FLX DX W/COLLJ SPEC WHEN PFRMD; [...] T score at or below -2.5. [facility] Department of Internal Medicine recommends using [...] alternative screening schedule based on magali Bates., [facility] May 17, 2011 for patients with osteopenia [...] T score at or below -2.5. [facility] Department of Internal Medicine recommendsusing National [...] Recently Relevant to Health Maintenance Insurance MEDICARE [facility] Care Teams Hot Saw Operator Relationship Specialty Start Date End Date Ling Muller MD [phone] (work) PCP - General Internal Medicine 02/28/16
--- OUTSIDE RECORDS SUMMARY | 2024-12-30 11:42 | XMS_ITS | Clinical Summary ---
Author Organization [facility] Address [address] [place] [address] Care Team Providers Care Before And After School Daycare Worker Name Role Phone Raisa Ortez DO, Diana [...] mg by mouth once a day. Active loztbsnl-fhx-QU -lycopen-lutein 0.4 mg-300 mcg- 250 mcg tablet [...] a schedule II opioid drug. 5 Active Active Problems Problem Noted Date Diagnosed Date Frequent UTI 12/24/2024 Assessment & Plan (12/24/2024 4:26 PM EDT): Orders: Kidney and Bladder Complete; Future Ambulatory referral to Urology; Future Dysuria 12/24/2024 Assessment & Plan (12/24/2024 4:26 PM EDT): Will send urine to the lab for a culture. Will arrange for ultrasound of bladder and consult with urologist. Pt wishes to have further work up at [facility]. 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 Advised medication for dementia and son [...] PM EDT): Chronically suppressed TSH. Managed with CERTIFIED REAL ESTATE APPRAISER Thyroid 90 mg daily by endocrinology. She declines reduction in her dose as recommended by endocrinology. She has re-established with grey washer Dr. Chaudhry located on [facility] [place]. Records requested. Assessment & Plan (10/01/2024 6:15 PM EDT): Chronically suppressed TSH. Managed with CERTIFIED REAL ESTATE APPRAISER Thyroid 90 mg daily by endocrinology. She declines reduction in her dose as recommended by endocrinology. Plans to be establishing with new grey washer. Assessment & Plan (08/23/2024 7:51 PM EDT): Clinically euthyroid. Managed with CERTIFIED REAL ESTATE APPRAISER Thyroid 120 mg daily by endocrinology. Will be established with new grey washer in [place] Dr. Chaudhry in March. Assessment & Plan (05/08/2024 6:53 PM EST): Clinically euthyroid. Managed with CERTIFIED REAL ESTATE APPRAISER Thyroid 120 mg daily by endocrinology. Will be established with new grey washer in [place] Dr. Chaudhry in March. Assessment & Plan (02/27/2024 6:31 PM EDT): Clinically euthyroid. Managed with CERTIFIED REAL ESTATE APPRAISER Thyroid 120 mg daily by endocrinology. Will be established with new grey washer in [place] in March. Assessment & Plan (11/11/2023 12:20 PM EDT): Recent TSH 0.014, repeat TSH ordered. Assessment & Plan (09/15/2023 8:13 PM EDT): Clinically euthyroid. Managed with CERTIFIED REAL ESTATE APPRAISER Thyroid 120 mg daily by endocrinology. Assessment & Plan (03/29/2023 7:44 PM EST): Managed with CERTIFIED REAL ESTATE APPRAISER Thyroid 120 mg daily by endocrinology. Low back pain 03/16/2023 Mixed incontinence urge and stress 03/16/2023 Assessment & Plan (12/24/2024 4:26 PM EDT): Orders: Ambulatory referral to Urology; Future Osteoporosis 03/16/2023 Assessment & Plan (11/19/2024 7:54 PM EDT): Managed with [employer] by director investment banking Dr. Matthew Ortiz in [place], [place]. Assessment & Plan (10/01/2024 6:15 PM EDT): Managed with [employer] by director investment banking Dr. Matthew Ortiz in [place]. Assessment & Plan (08/23/2024 7:51 PM EDT): Managed with [employer] by director investment banking Dr. Matthew Ortiz in [place]. Assessment & Plan (05/08/2024 6:53 PM EST): Managed with [employer] by director investment banking Dr. Matthew Ortiz in [place]. Assessment & Plan (02/27/2024 6:31 PM EDT): Managed with [employer] by director investment banking Dr. Matthew Ortiz in [place]. Dizziness 03/16/2023 Assessment & Plan (11/11/2023 [...] well as the arthritis treatment center in [place] Assessment & Plan (11/19/2024 7:54 PM EDT): Follows with ortho. Xray left knee done 03/18/24 showed tricompartmental OA. Received cortisone injection. Recently evaluated by ortho/pain management at [facility], plans for possible RFA. Assessment & Plan [...] difficulty driving places as she drives to [place] frequently. Discussed plan of MRI brain with [...] Encounters Date Type Department Care Team Description 12/24/2024 3:30 PM EDT Office Visit [address] Family Practice Department [address] [place] [phone] Aimee Dimas NP Dysuria (Primary Dx); Mixed incontinence urge and stress; Frequent UTI 12/24/[address] Department [address] [place] [phone] Aimee Dimas NP 12/23/[address] Department [address] [place] [address] Immenhjulitan, Yanelis V, DO UTI 11/19/2024 1:00 PM EDT Office Visit [address] Department [address] [place] [address] Immenhjulitan, Yanelis V, DO Recurrent UTI (Primary Dx); Osteoarthritis of left knee, unspecified osteoarthritis type; Hypertension, essential; Hypothyroidism (acquired); Osteoporosis, unspecified osteoporosis type, unspecified pathological fracture presence; Alzheimer's dementia without behavioral disturbance (HCC) 11/18/[address] Department [address] [place] [address] Immflorencen Yanelis V, DO 10/15/[address] [address] Immenhjulitan Yanelis V, DO [place] Referral 10/13/2024 myChart Message [address] [address] Immenhausen, Yanelis V, DO Medical Referral 10/01/2024 4:00 PM EDT Office Visit [address] [address] Immenhausen, Yanelis V, DO Recurrent UTI (Primary Dx); Hypertension, essential; Hypothyroidism (acquired); Osteoporosis, unspecified osteoporosis type, unspecified pathological fracture presence; Alzheimer's dementia without behavioral disturbance (HCC); Dysuria from Last 3 Months Immunizations Immunization Administration Dates Next Due Covid-19 Monovalent Vaccine, Moderna, mRNA, PF 05/16/2021,01/03/2021,12/06/2020 Influenza, Trivalent, Adjuvanted, PF 02/27/2024( Deferred: Patient decision) Pneumococcal Polysaccharide Vaccine, 23 Valent 08/28/2004 Pneumococcal conjugate PCV20,polysaccharide [id number] conjugate, adjuvant, PF (Prevnar 20) 02/27/2024(Deferred: Patient decision) Td(Adult) Unspecified Formulation 12/19/2012 Tetanus and Diphtheria Toxoi ds, Adsorbed, Preservative Free (2 Lf of Tetanus Toxoid and 2 Lf of Diphtheria Toxoid) 02/27/2024(Deferred: Patient decision),12/19/2012 Tuberculin Skin Test; Jakob ed Protein Derivative Solution, Intradermal 08/22/2000 Social History Tobacco Use Types Packs/Day Years Used Date Smoking Tobacco: Former Cigarettes Smokeless Tobacco: Never Tobacco Cessation:Counseling Given: Not Answered Comments:: Alcohol Use Standard Drinks/Week Comments Not Currently 0 (1 standard drink = 0.6 oz pur e alcohol) [facility] Utilities Answer Date Recorded In the past [...] Sign Reading Time Taken Comments Blood Pressure 112/68 12/24/2024 3:38 PM EDT Pulse 75 12/24/2024 3:38 PM EDT Temperature 36.1 C (97 F) 12/24/2024 3:38 PM EDT Respiratory Rate 18 06/02/2024 11:01 AM EST Oxygen Saturation 96% 12/24/2024 3:38 PM EDT Inhaled Oxygen Concentration - - Weight 52.2 kg (115 lb) 12/24/2024 3:38 PM EDT Height 147.3 cm (4' 10 ) 12/24/2024 3:38 PM EDT Body Mass Index 24.04 12/24/2024 3:38 PM EDT Plan of Treatment Upcoming Encounters Date Type Department Care Team (Late st Contact Info) Description 01/11/2025 11:00 AM EDT Office Visit [address] Family Practice Department [address] [place] [phone] Yanelis Kline DO [address] [place] [address] 03/01/2025 10:30 AM EST Office Visit [address] Department [address] [place] [address] Paula Carrillo NP [address] [place] [address] 06/03/2025 11:00 AM EST Follow-Up [facility] Neurology [address] [place] [address] Janeth Hidalgo MD [address] [place] [address] Health Maintenance Due Date Last Done Comments Pneumococcal Vaccine: 50+ Years (2 of 2 - PCV) 08/28/2005 08/28/2004 RSV Vaccine (60+ years old and patients) (1 - 1-dose 75+ series) 2012 DTaP,Tdap,and Td Vaccines (1 - Tdap) 12/20/2012 12/19/2012, 12/19/2012 Depression Screening and Follow-Up 04/29/2024 Health Care Proxy Review 04/29/2024 02/27/2024 COVID-19 Vaccine (4 - season) 2024 05/16/2021, 01/03/2021, 12/06/2020 Influenza Vaccine (#1) 2024 Zoster Vaccines (1 of 2) 02/26/2025 Pos tponed from 1956 (Patient Declined) Fall Risk Screening 08/10/2025 08/10/2024 Basic Metabolic Panel 08/18/2025 08/18/2024 , 11/11/2023, 06/18/2023, Additional history exists Social Drivers of Health Annual Screening 11/19/2025 11/19/2024 Tobacco Screening 04/29/2042 12/24/2024 Osteoporosis Screening Completed , 11/24/2022, 02/28/2021 Alcohol/Substance Use Screening Completed 12/24/2024 Hepatitis B Vaccines Aged Out No long er eligible based on patient's age to complete this topic Procedures * Due to [place] state law, this organization might not be sharing negative HIV tests. Procedure Name Priority Date/Time Associated Diagnosis Comments MICROSCOPIC URINALYSIS ONLY Routine 12/24/2024 3:45 PM EDT Dysuria MONTILLA TOP, URN Routine 12/24/2024 3:45 PM EDT Dysuria UA/CULTURE REFLEX Routine 12/24/2024 3:4 5 PM EDT Dysuria URINALYSIS W/REFLEX TO MICROSCOPIC & CULTURE Routine 12/24/2024 3:45 PM EDT Dysuria POCT URINALYSIS DIPSTICK, NON-INTERFACED Routine 12/24/2024 3:38 PM EDT Dysuria MONTILLA TOP, URN Routine 11/19/2024 6:19 PM [...] to Health Maintenance Results * Due to [place] state law, this organization might not be sharing negative HIV tests. * Montilla Top, Urine (12/24/2024 3:45 PM EDT) Only the most recent of3 resultswithin the time period is included. Extra Tube Hold for add-ons. 12/24/2024 8:05 PM EDT [facility] Comment:Auto resulted. Urine Urine specimen collection, clean catch / Unknown Non-Blood Collection / Unknown 12/24/2024 3:45 PM EDT 12/24/2024 6:17 PM EDT Aimee Vetal CERTIFIED REAL ESTATE APPRAISER LAB URINE ORDERABLES Final Res ult Performing Organization Address City/[facility]/ZIP Co de Phone Number [facility] [address] [address], [place] [phone] * Microscopic Urinalysis Only (12/24/2024 3:45 PM EDT) Only the most recent of2 resultswithin the time period is included. RBC, Urine 0-2 None Seen, 0-2 /HPF 12/24/2024 7:17 PM EDT [facility] WBC, Urine 0-2 None Seen, 0-2 /HPF 12/24/2024 7:17 PM EDT [facility] WBC Clumps, Urine 0-2 /HPF 12/24/2024 7:17 PM EDT [facility] Squamous Epithelial Cells, Urine 0-2 /HPF 12/24/2024 7:17 PM EDT [facility] Calcium Oxalate Crystals, Urine Trace /HPF 12/24/2024 7:17 PM EDT [facility] Bacteria, Urine None Seen None Seen /HPF 12/24/2024 7:17 PM EDT [facility] Urine Urine specimen collection, clean catch / Unknown Non-Blood Collection / Unknown 12/24/2024 3:45 PM EDT 12/24/2024 6:33 PM EDT [facility] CERTIFIED REAL ESTATE APPRAISER LAB URINE ORDERABLES Final Res ult Performing Organization Address City/[facility]/ZIP Co de Phone Number [facility] [address] [address], [place] [phone] * (ABNORMAL) Urinalysis W/Reflex to Microscopic & Culture (12/24/2024 3:45 PM EDT) Only the most recent of3 resultswithin the time period is included. Color, Urine Yellow Yellow 12/24/2024 6:33 PM EDT [facility] Clarity, Urine Clear Clear 12/24/2024 6:33 PM EDT [facility] Specific [place], Urine 1.015 1.005 - 1.030 12/24/2024 6:33 PM EDT [facility] pH, Urine 5.5 5.0 - 8.0 12/24/2024 6:33 PM EDT [facility] Protein, Urine Negative Negative mg/dL 12/24/2024 6:33 PM EDT [facility] Glucose, Urine Negative Negative mg/dL 12/24/2024 6:33 PM EDT [facility] Ketones, Urine Negative Negative mg/dL 12/24/2024 6:33 PM EDT [facility] Bilirubin, Urine Negative Negative 12/24/2024 6:33 PM EDT [facility] Blood, Urine Negative Negative 12/24/2024 6:33 PM EDT [facility] Nitrite, Urine Negative Negative 12/24/2024 6:33 PM EDT [facility] Urobilinogen, Urine 0.2 0.2 - 1.0 E.U./dL 12/24/2024 6:33 PM EDT [facility] Leukocyte Esterase, Urine Trace(A) Negative 12/24/2024 6:33 PM EDT [facility] Urine Urine specimen collection, clean catch / Unknown Non-Blood Collection / Unknown 12/24/2024 3:45 PM EDT 12/24/2024 6:17 PM EDT Narrative [facility] - 12/24/2024 6:33 PM EDT Some urinalysis results will not meet the criteria for reflex urine culture although certain urine values may be abnormal. Additional testing can be ordered by the provider if clinically warranted. [facility] LAB URINE ORDERABLES Final Res ult Performing Organization Address City/[facility]/ZIP Co de Phone Number [facility] [address] [address], [place] [phone] * POCT Urinalysis Dipstick, Manual, non-interfaced (12/24/2024 3:38 PM EDT) Only the most recent of3 resultswithin the time period is included. Color, UA Yellow Yellow Clarity, UA Clear Clear Glucose, UA Negative Negative mg/dL Bilirubin, UA Negative Negative Ketones, UA Negative Negative mg/dL Spec Grav, UA 1.010 1.005 - 1.030 Blood, UA Negative Negative pH, UA 5.5 5.0 - 8.5 Protein, UA Negative Negative mg/dL Urobilinogen, UA 0.2 0.2 - 1.0 E.U. /dL mg/dL Nitrite, UA Negative Negative Leukocytes, UA Negative Negative Urine 12/24/2024 3:38 PM EDT [facility] POINT OF CARE TEST ORDERABLES Final Result * Urine culture (clean catch) (Lab Collect) (11/19/2024 6:19 PM EDT) Only the most recent of2 resultswithin the time period is included. Urine Culture 10,000 100,000 CFU/mL mixed gram positives; multiple organisms are present, suggestive of contamination at the time of collection. [place] MANUAL 11/21/2024 8:03 AM EDT [facility] Urine Urine specimen collection, clean catch / Unknown Non-Blood Collection / Unknown 11/19/2024 6:19 PM EDT 11/19/2024 6:19 PM EDT Yanelis Ortez DO LAB MICROBIOLOGY - GENER AL ORDERABLES Final Result [facility] [address] [address], * (ABNORMAL) Comprehensive Metabolic Panel (08/18/2024 9:40 AM EDT) NA 140 136 - 145 mmol/L 08/18/2024 12:29 PM EDT [facility] K 4.8 3.5 - 5.1 mmol/L 08/18/2024 12:29 PM EDT [facility] Cl 104 98 - 109 mmol/L 08/18/2024 12:29 PM EDT [facility] CO2 27 22 - 32 mmol/L 08/18/2024 12:29 PM EDT [facility] Anion Gap 14 >=0 08/18/2024 12:29 PM EDT [facility] Glucose 84 60 - 99 mg/dL 08/18/2024 12:29 PM EDT [facility] Creatinine 0.98 0.50 - 1.12 mg/dL 08/18/2024 12:29 PM EDT [facility] Calcium 9.2 8.4 - 10.4 mg/dL 08/18/2024 12:29 PM EDT [facility] Total Protein 5.7(L) 6.6 - 8.7 g/dL 08/18/2024 12:29 PM EDT [facility] Albumin 4.1 3.5 - 5.0 g/dL 08/18/2024 12:29 PM EDT [facility] Bilirubin, Total 0.6 0.2 - 1.2 mg/dL 08/18/2024 12:29 PM EDT [facility] Alkaline Phosphatase 54 40 - 129 U/L 08/18/2024 12:29 PM EDT [facility] AST 19 0 - 33 U/L 08/18/2024 12:29 PM EDT [facility] ALT 8 <=33 U/L 08/18/2024 12:29 PM EDT [facility] BUN 21 8 - 23 mg/dL 08/18/2024 12:29 PM EDT [facility] eGFR 56(L) >=60 mL/min/1. 73m2 08/18/2024 12:29 PM EDT [facility] Comment:The estimated glomer ular filtration [...] - 4.2 g/dL 08/18/2024 12:29 PM EDT [facility] A/G Ratio 2.6 1.5 - 3.0 08/18/2024 12:29 PM EDT [facility] Blood Structure of peripheral vein / Unknown Venipuncture / Unknown 08/18/2024 9:40 AM EDT 08/18/2024 9:45 AM EDT us Yanelis Ortez DO LAB BLOOD ORDERABLES Fin al Result [facility] [address] [facility] [address] [place] [address], [place] [phone] * Dexa Scan (11/30/2022 10:31 AM EDT) Anatomical Region Laterality Modality Other us Onbase Scan [facility] Final Resu lt from Last 3 Months or Most Recently Relevant to Health Maintenance Insurance MEDICARE [facility] FED[facility] Advance Directives Documents on File Type Date Recorded Patient Sustainable Communities Designer Expl anation Guardianship 02/05/2024 5:32 PM Guardianship 11/13/2023 2:20 PM 11-13-2023 Guardianship 05/29/2023 3:11 PM 11-17-2019 Power of Exchange Administrator 05/29/2023 3:11 PM 11-16 Power of Exchange Administrator 05/24/2023 2:06 PM Health Care Proxy 08/17/2021 Health Care Proxy 08/17/2021 Health Care Proxy 08/17/2021 Health Care Proxy 08/17/2021 Health Care Proxy 08/17/2021 Advance Directive 07/12/2021 10:02 AM Care Teams Before And After School Daycare Worker Relationship Specialty Start Date End Date Yanelis Kline DO [facility] [place] [address] PCP - General Family Medicine 02/25/23
--- OUTSIDE RECORDS SUMMARY | 2024-12-30 11:42 | XMS_ITS | Encounter Summary ---
Author Organization [facility] Address [address] [place] [address] Care Team Providers Care Hotel Dining Room Cashier Name Role Phone Raisa Ortez DO, Diana Primary Care Provider + Encounter Details Date Type Department Care Team (Late st Contact Info) Description 04/12/2023 Lab Requisition [facility] [address] [place] [address] Paula Carrillo NP [address] [place] [address] Dysuria; Unspecified abnormal findings in urine Social [...] Description 01/11/2025 11:00 AM EDT Office Visit [address] Family Practice Department [address] [place] [phone] Yanelis Kline DO [address] [place] [phone] 03/01/2025 10:30 AM EST Office Visit [address] Family Practice Department [address] [place] [phone] Paula Carrillo NP [address] [place] [address] 06/03/2025 11:00 AM EST Follow-Up [facility] Neurology [address] [place] [address] Janeth Hidalgo MD [address] [place] [address] documented as of this encounter Procedures * Due to [facility] law, this organization might not be sharing [...] in this encounter Results * Due to [place] [employer] law, this organization might not be sharing negative HIV tests. * Urine Culture, Routine (04/12/2023 6:41 PM EST) Urine Culture 10,000 100,000 CFU/mL mixed gram positives; multiple organisms are present, suggestive of contamination at the time of collection. [facility] MANUAL 04/14/2023 7:38 AM EST [facility] Urine 04/12/2023 6:41 PM EST 04/12/2023 6:41 PM EST us Paula Carrillo TISSUE TECHNICIAN LAB MICROB IOLOGY - GENERAL ORDERABLES Edited Result - Final Performing Organization Address [facility]/ZIP Co de Phone Number [facility] [address] [address], [place] [phone] * Montilla Top, Urine (04/12/2023 6:41 PM EST) Extra Tube Hold for add-ons. [place] [facility] 04/14/2023 7:39 AM EST [facility] Comment:Auto resulted. Urine 04/12/2023 6:41 PM EST 04/12/2023 6:41 PM EST Paula Carrillo TISSUE TECHNICIAN LAB URINE ORDERABL ES Final Result Performing Organization Address [facility] Co de Phone Number [facility] [address] [address], [place] [phone] documented in this encounter Visit Diagnoses Diagnosis Dysuria Unspecified abnormal findings in urine documented in this encounter Care Teams Hotel Dining Room Cashier Relationship Specialty Start Date End Date Yanelis Kline DO [address] [place] [phone] PCP - General Family Medicine 02/25/23 documented as of this encounter
--- OUTSIDE RECORDS SUMMARY | 2024-12-30 11:42 | XMS_ITS | Encounter Summary ---
Author Organization Address [address] [place] [address] Care Team Providers Care Fractionation Supervisor Name Role Phone Ling Muller MD Primary Care Provider [phone] Encounter Details Date Type Department Care Team (Late st Contact Info) Description 06/19/2024 Lab Requisition [facility] - Main Lab [address] [place] [address] Augustus Carrillo MD [address] [address] Other abnormal findings in urine Social History [...] Urine No growth 06/20/2024 8:56 AM EST [facility] Urine Urine specimen obtained by clean catch procedure / Unknown 06/19/2024 06/19/2024 1:46 PM EST us Augustus Carrillo MD LAB MICROBIOLOGY - G ENERAL ORDERABLES Final Result [facility] [address] [place] [address], documented in this encounter Visit Diagnoses Diagnosis Other abnormal findings in urine documented in this encounter Care Teams Fractionation Supervisor Relationship Specialty Start Date End Date Ling Muller MD PCP - General Internal Medicine 02/28/16 documented as of this encounter
== END 2024-12-30 11:02 | disposition home or self-care (01) ==
LOC: HO.PMC 10:13
PROVIDERS: PCP Family Medicine; Visit Provider Internal Medicine
DX: M25.562 Pain in left knee (principal); M25.462 Effusion, left knee; M17.12 Unilateral primary osteoarthritis, left knee
CPT/HCPCS: 99213

== ENCOUNTER → 2024-12-30 10:13 | Outpatient (BNVA) | payer MEDICARE, BC, SELFPAY | PROVIDERS: PCP Family Medicine; Visit Provider Internal Medicine | DX: M25.562 Pain in left knee (principal); M25.462 Effusion, left knee; M17.12 Unilateral primary osteoarthritis, left knee | CPT/HCPCS: 99212 ==

== ENCOUNTER 2025-01-28 08:23 | Outpatient (REF) | payer MEDICARE, BC, SELFPAY ==
--- OUTSIDE RECORDS SUMMARY | 2025-01-28 08:39 | XMS_ITS | Encounter Summary ---
Author Organization [facility] Address [address] [place] [address] Care Team Providers Care Amusement Machine Mechanic Name Role Phone Ling Muller MD Primary Care Provider [phone] Encounter Details Date Type Department Care Team (Late st Contact Info) Description 06/19/2024 Lab Requisition [facility] - Main Lab [address] [place] [address] Augustus Carrillo MD [address] [address] Other abnormal findings in urine Social History [...] Urine No growth 06/20/2024 8:[address] [facility] Urine Urine specimen obtained by clean catch procedure / Unknown 06/19/2024 06/19/2024 1:46 PM EST us Augustus Carrillo MD LAB MICROBIOLOGY - G ENERAL ORDERABLES Final Result [facility] [address] [place] [address], documented in this encounter Visit Diagnoses Diagnosis Other abnormal findings in urine documented in this encounter Care Teams Amusement Machine Mechanic Relationship Specialty Start Date End Date Ling Muller MD PCP - General Internal Medicine 02/28/16 documented as of this encounter
--- OUTSIDE RECORDS SUMMARY | 2025-01-28 08:39 | XMS_ITS | Encounter Summary ---
Author Organization [facility] Address [address] [place] [address] Care Team Providers Care Grain Grader Name Role Phone Raisa Ortez DO, Diana Primary Care Provider + Encounter Details Date Type Department Care Team (Late st Contact Info) Description 04/12/2023 Lab Requisition [facility] [address] [place] [address] Paula Carrillo NP [address] [place] [address] Dysuria; Unspecified abnormal findings in urine Social [...] Care Team (Late st Contact Info) Description 03/01/2025 10:30 AM EST Office Visit [facility] [address] [facility] Family Practice Department [address] [place] [address] Paula Carrillo NP [address] [place] [address] 06/03/2025 11:00 AM EST Follow-Up [facility] Neurology [address] [place] [address] Janeth Hidalgo MD [address] [place] [address] documented as of this encounter Procedures * Due to [place] [employer] law, this organization might not be sharing [...] in this encounter Results * Due to [place] [employer] law, this organization might not be sharing negative HIV tests. * Urine Culture, Routine (04/12/2023 6:41 PM EST) Urine Culture 10,000 100,000 CFU/mL mixed gram positives; multiple organisms are present, suggestive of contamination at the time of collection. [facility] 04/14/2023 7:38 AM EST [facility] Urine 04/12/2023 6:41 PM EST 04/12/2023 6:41 PM EST us Paula Carrillo NP LAB MICROB IOLOGY - GENERAL ORDERABLES Edited Result - Final [facility] [address] [facility] [address] [place] [address], [place] [phone] * Montilla Top, Urine (04/12/2023 6:41 PM EST) Extra Tube Hold for add-ons. [facility] 04/14/2023 7:39 AM EST [facility] Comment:Auto resulted. Urine 04/12/2023 6:41 PM EST 04/12/2023 6:41 PM EST us Paula Carrillo [facility] URINE ORDERABL ES Final Result Performing Organization Address City/State/[facility] Co de Phone Number [facility] [address] [address], documented in this encounter Visit Diagnoses Diagnosis Dysuria Unspecified abnormal findings in urine documented in this encounter Care Teams Grain Grader Relationship Specialty Start Date End Date Yanelis Kline DO [address] [place] [id number] PCP - General Family Medicine 02/25/23 documented as of this encounter
--- OUTSIDE RECORDS SUMMARY | 2025-01-28 08:39 | XMS_ITS | Clinical Summary ---
Author Organization [address] Address [address] [place] [phone] Phone Care Team Providers Care Director Of Database Marketing Name Role Phone Ling Muller MD Primary Care Provider Surgical History Surgery Date Site/Laterality Comments OTHER SURGICAL HISTORY PROCEDURE: HISTORICAL MELANOMA OTHER SURGICAL HISTORY 2003 PROCEDURE: [place] ARTHRS KNEE W/MENISCECTOMY MED&LAT W/SHAVING; COMMENT: left ESOPHAGOGASTRODUODENOSCOPY 07/17/2005 PROCEDURE: PA EGD TRANSORAL BIOPSY SINGLE/MULTIPLE; COMMENT: celiac disease COLONOSCOPY 07/17/2008 PROCEDURE: [place] COLONOSCOPY FLX DX W/COLLJ SPEC WHEN PFRMD; [...] of Health Screening 03/22/2024 Depression Screening 04/29/2024 COVID-19 Vaccine ( - 2023-2 5 season) 2024 Influenza Vaccine (#1) 2024 HIB Vaccines Aged [...] T score at or below -2.5. [facility] Department of Internal Medicine recommends using [...] alternative screening schedule based on magali Bates., [facility] May 17, 2011 for patients with osteopenia [...] T score at or below -2.5. [facility] Department of Internal Medicine recommendsusing National [...] Recently Relevant to Health Maintenance Insurance MEDICARE [facility] Care Teams Director Of Database Marketing Relationship Specialty Start Date End Date Ling Muller MD [phone] (work) PCP - General Internal Medicine 02/28/16
--- OUTSIDE RECORDS SUMMARY | 2025-01-28 08:39 | XMS_ITS | Clinical Summary ---
Author Organization [facility] Address [address] [place] [address] Care Team Providers Care Bridge Ironworker Name Role Phone Raisa Ortez DO, Diana [...] mg by mouth once a day. Active [id number] -lycopen-lutein 0.4 mg-300 mcg- 250 mcg tablet [...] drug. 5 Active cephalexin (KEFLEX) 500 mg capsuleIndicati ons:Urinary tract infection without hematuria, site unspecified Take 1 capsule (500 mg total) by mouth 2 times a day for 10 days. 20 capsule 5 025 Active Problems Problem Noted Date Diagnosed Date Dysuria 12/24/2024 Assessment & Plan (12/24/2024 4:26 PM EDT): Will send urine to the lab for a culture. Will arrange for ultrasound of bladder and consult with urologist. Pt wishes to have further work up at [facility]. 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 [...] supportive care reviewed. Call if no improvement. Referral to urologist for recurrent UTIs. Orders: POCT Urinalysis Dipstick, Manual, non-interfaced Urine culture (clean catch) (Lab Collect) Ambulatory referral to Urology; Future cephalexin (KEFLEX) 500 mg capsule; Take 1 capsule (500 mg total) by mouth 2 times a day for 10 days. Assessment & Plan (01/11/2025 10:43 AM EDT): >>ASSESSMENT AND PLAN FOR FREQUENT UTI WRITTEN ON 12/24/2024 4:26 PM BY TAYA PIÑA NP Orders: US Kidney and Bladder Complete; Future Ambulatory referral to Urology; Future Assessment & Plan (11/19/2024 7:54 PM EDT): [...] behavioral disturba nce 10/28/2023 Assessment & Plan (01/11/2025 11:37 PM EDT): Stable. Unable to tolerate Namenda due to adverse reaction. Currently at her baseline, A&O x3. MMSE score 30/26 Sep 2023. 2 points improved on MoCA done through her neurologist October 2023. Follow up with neurology as recommended. Assessment & Plan (11/19/2024 7:54 PM EDT): [...] needed. Hypertension, essential 04/01/2023 Assessment & Plan (01/11/2025 11:37 PM EDT): BP normotensive without medication. Continue to monitor. Orders: CBC; Future Comprehensive Metabolic Panel; Future Assessment & Plan (11/19/2024 7:54 PM EDT): [...] 03/16/2023 Hypothyroidism (acquired) 03/16/2023 Assessment & Plan (01/11/2025 11:37 PM EDT): Chronically suppressed TSH. Managed with FOOD SERVICE TEAM MEMBER Thyroid 90 mg daily by endocrinology. She declines reduction in her dose as recommended by endocrinology. She has re-established with review engineer Dr. Chaudhry located on [facility] in [place]. Records requested. Recheck TSH, free T4. Orders: TSH; Future T4, free; Future T3; Future Assessment & Plan (11/19/2024 7:54 PM EDT): Chronically suppressed TSH. Managed with FOOD SERVICE TEAM MEMBER Thyroid 90 mg daily by endocrinology. She declines reduction in her dose as recommended by endocrinology. She has re-established with review engineer Dr. Chaudhry located on [facility] In [place]. Records requested. Assessment & Plan (10/01/2024 6:15 PM EDT): Chronically suppressed TSH. Managed with FOOD SERVICE TEAM MEMBER Thyroid 90 mg daily by endocrinology. She declines reduction in her dose as recommended by endocrinology. Plans to be establishing with new review engineer. Assessment & Plan (08/23/2024 7:51 PM EDT): Clinically euthyroid. Managed with FOOD SERVICE TEAM MEMBER Thyroid 120 mg daily by endocrinology. Will be established with new review engineer in [place] in March. Assessment & Plan (05/08/2024 6:53 PM EST): Clinically euthyroid. Managed with FOOD SERVICE TEAM MEMBER Thyroid 120 mg daily by endocrinology. Will be established with new review engineer in [place] in March. Assessment & Plan (02/27/2024 6:31 PM EDT): Clinically euthyroid. Managed with FOOD SERVICE TEAM MEMBER Thyroid 120 mg daily by endocrinology. Will be established with new review engineer in [place] in March. Assessment & Plan (11/11/2023 12:20 PM EDT): Recent TSH 0.014, repeat TSH ordered. Assessment & Plan (09/15/2023 8:13 PM EDT): Clinically euthyroid. Managed with FOOD SERVICE TEAM MEMBER Thyroid 120 mg daily by endocrinology. Assessment & Plan (03/29/2023 7:44 PM EST): Managed with FOOD SERVICE TEAM MEMBER Thyroid 120 mg daily by endocrinology. Low back pain 03/16/2023 Mixed incontinence urge and stress 03/16/2023 Assessment & Plan (12/24/2024 4:26 PM EDT): Orders: Ambulatory referral to Urology; Future Osteoporosis 03/16/2023 Assessment & Plan (01/11/2025 11:37 PM EDT): Managed with [employer] by fudger Dr. Matthew Ortiz in [place], [place]. Assessment & Plan (11/19/2024 7:54 PM EDT): Managed with [employer] by fudger Dr. Matthew Ortiz in [place]. Assessment & Plan (10/01/2024 6:15 PM EDT): Managed with [employer] by fudger Dr. Matthew Ortiz in [place]. Assessment & Plan (08/23/2024 7:51 PM EDT): Managed with [employer] by fudger Dr. Matthew Ortiz in [place] Assessment & Plan (05/08/2024 6:53 PM EST): Managed with [employer] by fudger Dr. Matthew Ortiz in [place]. Assessment & Plan (02/27/2024 6:31 PM EDT): Managed with [employer] by fudger Dr. Matthew Ortiz in [place], [place]. Dizziness 03/16/2023 Assessment & Plan (11/11/2023 [...] well as the arthritis treatment center in [place] Assessment & Plan (01/11/2025 11:37 PM EDT): Follows with ortho. Xray left knee done 03/18/24 showed tricompartmental OA. Received cortisone injection. Recently evaluated by ortho/pain management at [facility], plans for possible RFA. Assessment & Plan (11/19/2024 7:54 PM EDT): Follows with ortho. Xray left knee done 03/18/24 showed tricompartmental OA. Received cortisone injection. Recently evaluated by ortho/pain management at [facility], plans for possible RFA. Assessment & [...] difficulty driving places as she drives to [place] frequently. Discussed plan of MRI brain with [...] Encounters Date Type Department Care Team Description 01/11/2025 11:00 AM EDT Office Visit [address] Department [address] [place] [phone] Raisa Yanelis V, DO Recurrent UTI (Primary Dx); Urinary tract infection without hematuria, site unspecified; Osteoarthritis of left knee, unspecified osteoarthritis type; Hypertension, essential; Hypothyroidism (acquired); Osteoporosis, unspecified osteoporosis type, unspecified pathological fracture presence; Alzheimer's dementia without behavioral disturbance (HCC) 01/11/2025 Results Follow-Up [address] Department [address] [place] [phone] Raisa Yanelis V, DO 12/24/2024 3:30 PM EDT Office Visit [address] Department [address] [place] [phone] Taya Piña, NICOL Dysuria (Primary Dx); Mixed incontinence urge and stress; Frequent UTI 12/24/[address] [address] Taya Piña NP 12/23/[address] Department [address] [place] [phone] Yanelis Kline V, DO UTI 11/19/2024 1:00 PM EDT Office Visit [address] Department [address] [place] [phone] Raisa Yanelis V, DO Recurrent UTI (Primary Dx); Osteoarthritis of left knee, unspecified osteoarthritis type; Hypertension, essential; Hypothyroidism (acquired); Osteoporosis, unspecified osteoporosis type, unspecified pathological fracture presence; Alzheimer's dementia without behavioral disturbance (HCC) 11/18/[address] Family Practice Department [address] [place] [address] Yanelis Kline DO from Last 3 Months Immunizations Immunization Administration Dates Next Due Covid-19 Monovalent Vaccine, Moderna, mRNA, PF 05/16/2021,01/03/2021,12/06/2020 Influenza, Trivalent, Adjuva nted, PF (FLUAD) 02/27/2024(Deferred: Patient decision) Pneumococcal Polysaccharide Vaccine, 23 Valent 08/28/2004 Pneumococcal conjugate PCV20,polysaccharide [id number] conjugate, adjuvant, PF (Prevnar 20) 02/27/2024(Deferred: Patient decision) Td(Adult) Unspecified Formulation 12/19/2012 Tetanus and Diphtheria Toxoi ds, Adsorbed, Preservative Free (2 Lf of Tetanus Toxoid and 2 Lf of Diphtheria Toxoid) 02/27/2024(Deferred: Patient decision),12/19/2012 Tuberculin Skin Test; Cocoifi ed Protein Derivative Solution, Intradermal 08/22/2000 Social History Tobacco Use Types Packs/Day Years Used Date Smoking Tobacco: Former Cigarettes Smokeless Tobacco: Never Tobacco Cessation:Counseling Given: Not Answered Comments:: Alcohol Use Standard Drinks/Week Comments Not Currently 0 (1 standard drink = 0.6 oz pur e alcohol) [facility] Utilities Answer Date Recorded In the past 12 months has e [employer], [employer], oil, or water [employer] threatened to shut off services in your [...] Sign Reading Time Taken Comments Blood Pressure 106/66 01/11/2025 10:48 AM EDT Pulse 82 01/11/2025 10:48 AM EDT Temperature 35.6 C (96 F) 01/11/2025 10:48 AM EDT Respiratory Rate 18 06/02/2024 11:01 AM EST Oxygen Saturation 99% 01/11/2025 10:48 AM EDT Inhaled Oxygen Concentration - - Weight 53.1 kg (117 lb) 01/11/2025 10:48 AM EDT Height 147.3 cm (4' 10 ) 01/11/2025 10:48 AM EDT Body Mass Index 24.45 01/11/2025 10:48 AM EDT Plan of Treatment Upcoming Encounters Date Type Department Care Team (Late st Contact Info) Description 03/01/2025 10:30 AM EST Office Visit [address] Family Practice Department [address] [place] [phone] Paula Carrillo NP [address] [place] [phone] 06/03/2025 11:00 AM EST Follow-Up [facility] Neurology [address] [place] [phone] Janeth Hidalgo MD [address] [place] [address] Health Maintenance Due Date Last Done Comments Pneumococcal Vaccine: 50+ Years (2 of 2 - PCV) 08/28/2005 08/28/2004 DTaP,Tdap,and Td Vaccines (1 - Tdap) 12/20/2012 12/19/2012, 12/19/2012 Depression Screening and Follow-Up 04/29/2024 Health Care Proxy Review 04/29/2024 02/27/2024 COVID-19 Vaccine (4 - season) 2025 05/16/2021, 01/03/2021, 12/06/2020 Postponed from 12/28/2024 (Patient Declined) Zoster Vaccines (1 of 2) 02/26/2025 Pos tponed from 1956 (Patient Declined) Influenza Vaccine (#1) 2025 Postp oned from 12/28/2024 (Patient Declined) Fall Risk Screening 08/10/2025 08/10/2024 Social Drivers of Health Annual Screening 11/19/2025 11/19/2024 Basic Metabolic Panel 01/11/2026 01/11/2025 , 08/18/2024, 11/11/2023, Additional history exists RSV Vaccine (60+ years old and patients) (1 - 1-dose 75+ series) 01/11/2026 Postponed from 2012 (Patient Declined) Tobacco Screening 04/29/2042 01/11/2025 Osteoporosis Screening Completed , 11/24/2022, 02/28/2021 Alcohol/Substance Use Screening Completed 12/24/2024 Hepatitis B Vaccines Aged Out No long er eligible based on patient's age to complete this topic Procedures * Due to [place] state law, this organization might not be sharing negative HIV tests. Procedure Name Priority Date/Time Associated Diagnosis Comments URINE CULTURE, ROUTINE Routine 12:54 PM EDT Recurrent UTI COMPREHENSIVE METABOLIC PANEL Routine 01/11/2025 11:45 AM EDT Hypertension, essential CBC Routine 01/11/2025 11:45 AM EDT Hypertension, essential T3, TOTAL Routine 01/11/2025 11:45 AM EDT Hypothyroidism (acquired) T4, FREE Routine 01/11/2025 11:45 AM EDT Hypothyroidism (acquired) TSH Routine 01/11/2025 11:45 AM EDT Hypothyroidism (acquired) POCT URINALYSIS DIPSTICK, NON-INTERFACED Routine 01/11/2025 11:06 AM EDT Recurrent UTI MICROSCOPIC URINALYSIS ONLY Routine 12/24/2024 3:45 PM [...] Routine 11/19/2024 1:11 PM EDT Recurrent UTI HM DEXA SCAN 11/30/2022 10:31 AM EDT from Last 3 Months or Most Recently Relevant to Health Maintenance Results * Due to [place] state law, this organization might not be sharing negative HIV tests. * (ABNORMAL) Urine culture (clean catch) (Lab Collect) (01/11/2025 12:54 PM EDT) Only the most recent of2 resultswithin the time period is included. Urine Culture 10,000-25,000 CFU/mL Streptococcus mitis/oralis(A) MINIMUM INHIBITORY CONCENTRATION (OSCAR) 01/14/2025 9:41 AM EDT [facility] Urine Urine specimen collection, clean catch / Unknown Non-Blood Collection / Unknown 01/11/2025 12:54 PM EDT 01/11/2025 12:54 PM EDT us Yanelis Kline V, DO LAB MICROBIOLOGY - GENER AL ORDERABLES Final Result [facility] [address] [facility] [address] [place] [address], [place] [phone] * CBC (01/11/2025 11:45 AM EDT) Pathologist [facility] WBC 6.5 4.8 - 10.8 10*3/uL 01/11/2025 2:26 PM EDT [facility] RBC 4.20 4.20 - 5.40 10*6/uL 01/11/2025 2:26 PM EDT [facility] Hemoglobin 12.4 11.7 - 15.5 g/dL 01/11/2025 2:26 PM EDT [facility] Hematocrit 38.0 35.7 - 45.8 % 01/11/2025 2:26 PM EDT [facility] MCV 90.5 81.0 - 99.0 fL 01/11/2025 2:26 PM EDT [facility] MCH 29.5 26.0 - 34.0 pg 01/11/2025 2:26 PM EDT [facility] MCHC 32.6 31.0 - 36.0 g/dL 01/11/2025 2:26 PM EDT [facility] RDW 13.7 12.0 - 15.0 % 01/11/2025 2:26 PM EDT [facility] Platelets 252 140 - 440 10*3/uL 01/11/2025 2:26 PM EDT [facility] MPV 10.9 9.4 - 12.3 fL 01/11/2025 2:26 PM EDT [facility] RDW Standard Deviation 46.1 36.4 - 46.3 fL 01/11/2025 2:26 PM EDT [facility] Blood Structure of peripheral vein / Unknown Venipuncture / Unknown 01/11/2025 11:45 AM EDT 01/11/2025 12:56 PM EDT us Yanelis Reach.lyenhausen V, DO LAB BLOOD ORDERABLES Fin al Result Performing Organization Address [facility] de Phone Number [facility] [address] [place] [address], [place] [phone] * T3 (01/11/2025 11:45 AM EDT) Pathologist [facility] Total T3 175 80 - 200 ng/dL 01/11/2025 2:49 PM EDT [facility] Comment: Dietary supplements containing biotin may interfere in [...] peripheral vein / Unknown Venipuncture / Unknown 01/11/2025 11:45 AM EDT 01/11/2025 12:56 PM EDT us Yanelis Reach.lyenhausen V, DO LAB BLOOD ORDERABLES Fin al Result Performing Organization Address [facility] Co de Phone Number [facility] [address] [address], [place] [phone] * (ABNORMAL) TSH (01/11/2025 11:45 AM EDT) Pathologist [facility] TSH 0.028(L) 0.270 - 4.200 uIU/mL 01/11/2025 2:49 PM EDT [facility] Comment: Females: 1st trimester 0.150-4.000 IU/mL 2nd trimester 0.310-4.170 IU/mL 3rd trimester 0.380-4.150 IU/mL Blood Structure of peripheral vein / Unknown Venipuncture / Unknown 01/11/2025 11:45 AM EDT 01/11/2025 12:56 PM EDT us Yanelis Immenhausen V, DO LAB BLOOD ORDERABLES Fin al Result Performing Organization Address [facility] Co de Phone Number [facility] [address] [address], [place] [phone] * T4, free (01/11/2025 11:45 AM EDT) Free T4 1.08 0.80 - 1.80 ng/dL 01/11/2025 2:49 PM EDT [facility] Comment: Females: (ng/dL) First [...] 72 hours following the last biotin supplementation. Effective 2024, Free T4 reference range (>=18 years old) is 0.8 - 1.8 ng/dL, replacing the previous range of 0.93 - 1.70 ng/dL. Blood Structure of peripheral vein / Unknown Venipuncture / Unknown 01/11/2025 11:45 AM EDT 01/11/2025 12:56 PM EDT us Yanelis Immenhausen V, DO LAB BLOOD ORDERABLES Fin al Result Performing Organization Address [facility]/ZIP Co de Phone Number [facility] [address] [address], [place] [phone] * (ABNORMAL) Comprehensive Metabolic Panel (01/11/2025 11:45 AM EDT) NA 137 136 - 145 mmol/L 01/11/2025 2:49 PM EDT [facility] K 4.3 3.5 - 5.1 mmol/L 01/11/2025 2:49 PM EDT [facility] Cl 103 98 - 109 mmol/L 01/11/2025 2:49 PM EDT [facility] CO2 25 22 - 32 mmol/L 01/11/2025 2:49 PM EDT [facility] Anion Gap 13 >=0 01/11/2025 2:49 PM EDT [facility] Glucose 89 60 - 99 mg/dL 01/11/2025 2:49 PM EDT [facility] Creatinine 0.86 0.50 - 1.12 mg/dL 01/11/2025 2:49 PM EDT [facility] Calcium 9.5 8.4 - 10.4 mg/dL 01/11/2025 2:49 PM EDT [facility] Total Protein 6.0(L) 6.6 - 8.7 g/dL 01/11/2025 2:49 PM EDT [facility] Albumin 4.3 3.5 - 5.0 g/dL 01/11/2025 2:49 PM EDT [facility] Bilirubin, Total 0.4 0.2 - 1.2 mg/dL 01/11/2025 2:49 PM EDT [facility] Alkaline Phosphatase 63 40 - 129 U/L 01/11/2025 2:49 PM EDT [facility] AST 23 0 - 33 U/L 01/11/2025 2:49 PM EDT [facility] ALT 11 <=33 U/L 01/11/2025 2:49 PM EDT [facility] BUN 16 8 - 23 mg/dL 01/11/2025 2:49 PM EDT [facility] eGFR 65 >=60 mL/min/1. 73m2 01/11/2025 2:49 PM EDT [facility] Comment:The estimated glomer ular [...] in Diagnosing Kidney Disease . Globulin, Total 1.7(L) 2.1 - 4.2 g/dL 01/11/2025 2:49 PM EDT [facility] A/G Ratio 2.5 1.5 - 3.0 01/11/2025 2:49 PM EDT [facility] Blood Structure of peripheral vein / Unknown Venipuncture / Unknown 01/11/2025 11:45 AM EDT 01/11/2025 12:56 PM EDT us Yanelis Ortez DO LAB BLOOD ORDERABLES Fin al Result Performing Organization Address City/State/[facility] Co de Phone Number [facility] [address] [facility] [address] [place] [address], * POCT Urinalysis Dipstick, Manual, non-interfaced (01/11/2025 11:06 AM EDT) Only the most recent of3 resultswithin the time period is included. Color, UA Yellow Yellow Clarity, UA Clear Clear Glucose, UA Negative Negative mg/dL Bilirubin, UA Negative Negative Ketones, UA Negative Negative mg/dL Spec Grav, UA 1.015 1.005 - 1.030 Blood, UA Negative Negative pH, UA 6.0 5.0 - 8.5 Protein, UA Negative Negative mg/dL Urobilinogen, UA 0.2 0.2 - 1.0 E.U. /dL mg/dL Nitrite, UA Negative Negative Leukocytes, UA Negative Negative Urine 01/11/2025 11:0 6 AM EDT Yanelis Kline V, DO POINT OF CARE TEST ORDER SHARONDA Final Result * Montilla Top, Urine (12/24/2024 3:45 PM EDT) Only the most recent of2 resultswithin the time period is included. Extra Tube Hold for add-ons. 12/24/2024 8:05 PM EDT [facility] Comment:Auto resulted. Urine Urine specimen collection, clean catch / Unknown Non-Blood Collection / Unknown 12/24/2024 3:45 PM EDT 12/24/2024 6:17 PM EDT Taya Piña NP LAB URINE ORDERABLES Final Res ult [facility] [address] [place] [address], [place] [phone] * Microscopic Urinalysis Only (12/24/2024 3:45 PM EDT) RBC, Urine 0-2 None Seen, 0-2 /HPF 12/24/2024 7:17 PM EDT [facility] WBC, Urine 0-2 None Seen, 0-2 /HPF 12/24/2024 7:17 PM EDT [facility] WBC Clumps, Urine 0-2 /HPF 12/24/2024 7:17 PM EDT [facility] Squamous Epithelial Cells, Urine 0-2 /HPF 12/24/2024 7:17 PM EDT [facility] Calcium Oxalate Crystals, Urine Trace /HPF 12/24/2024 7:17 PM EDT [facility] Bacteria, Urine None Seen None Seen /HPF 12/24/2024 7:17 PM EDT [facility] Urine Urine specimen collection, clean catch / Unknown Non-Blood Collection / Unknown 12/24/2024 3:45 PM EDT 12/24/2024 6:33 PM EDT us Taya Piña [employer]BER LAB URINE ORDERABLES Final Res ult [facility] [address] [place] [address], [place] [phone] * (ABNORMAL) Urinalysis W/Reflex to Microscopic & Culture (12/24/2024 3:45 PM EDT) Only the most recent of2 resultswithin the time period is included. Color, Urine Yellow Yellow 12/24/2024 6:33 PM EDT [facility] Clarity, Urine Clear Clear 12/24/2024 6:33 PM EDT [facility] Specific [place], Urine 1.015 1.005 - 1.030 12/24/2024 6:33 PM EDT [facility] pH, Urine 5.5 5.0 - 8.0 12/24/2024 6:33 PM EDT [facility] Protein, Urine Negative Negative mg/dL 12/24/2024 6:33 PM EDT [facility] Glucose, Urine Negative Negative mg/dL 12/24/2024 6:33 PM EDT [facility] Ketones, Urine Negative Negative mg/dL 12/24/2024 6:33 PM EDT [facility] Bilirubin, Urine Negative Negative 12/24/2024 6:33 PM EDT [facility] Blood, Urine Negative Negative 12/24/2024 6:33 PM EDT [facility] Nitrite, Urine Negative Negative 12/24/2024 6:33 PM EDT [facility] Urobilinogen, Urine 0.2 0.2 - 1.0 E.U./dL 12/24/2024 6:33 PM EDT [facility] Leukocyte Esterase, Urine Trace(A) Negative 12/24/2024 6:33 PM EDT [facility] Urine Urine specimen collection, clean catch / Unknown Non-Blood Collection / Unknown 12/24/2024 3:45 PM EDT 12/24/2024 6:17 PM EDT Narrative [facility] - 12/24/2024 6:33 PM EDT Some urinalysis results will not meet the criteria for reflex urine culture although certain urine values may be abnormal. Additional testing can be ordered by the provider if clinically warranted. us Taya Piña [employer] LAB URINE ORDERABLES Final Res ult [facility] [address] [place] [address], [place] [phone] * Dexa Scan (11/30/2022 10:31 AM EDT) Anatomical Region Laterality Modality Other us Onbase Scan [facility] Final Resu lt from Last 3 Months or Most Recently Relevant to Health Maintenance Insurance MEDICARE [facility] Advance Directives Documents on File Type Date Recorded Patient Memorial Adviser Expl anation Guardianship 02/05/2024 5:32 PM Guardianship 11/13/2023 2:20 PM 11-13-2023 Guardianship 05/29/2023 3:11 PM 11-17-2019 Power of Reading Recovery Teacher 05/29/2023 3:11 PM 11-16 Power of Reading Recovery Teacher 05/24/2023 2:06 PM Health Care Proxy 08/17/2021 Health Care Proxy 08/17/2021 Health Care Proxy 08/17/2021 Health Care Proxy 08/17/2021 Health Care Proxy 08/17/2021 Advance Directive 07/12/2021 10:02 AM Care Teams Bridge Ironworker Relationship Specialty Start Date End Date Yanelis Kline DO [address] [place] [id number] PCP - General Family Medicine 02/25/23
== END 2025-01-28 08:24 | disposition home or self-care (01) ==
LOC: CF 08:23
PROVIDERS: Visit Provider Internal Medicine
DX: M25.562 Pain in left knee (principal)
CPT/HCPCS: 64555; 64590; C1778; J2003

== ENCOUNTER 2025-01-28 10:32 | Outpatient (AMB) | payer MEDICARE, BC, SELFPAY ==
[2025-01-28 10:40] VITALS: BP 132/70; PULSE 80; RESP 16; O2SAT 100; BMI 23.0
--- NOTE | 2025-01-28 10:40 | MHC.OFFVIS ---
Vital Signs 01/28/25 10:40 01/28/25 12:18 Height 4 ft 10 in Weight 110 lb BMI 23.0 BP 132/70 Blood Pressure Location Rt brachial Position Sitting Respiration 16 Pulse 80 Pulse Source Pulse Oximeter Pulse Oximetry (%) 100 Oxygen Delivery Method Room Air Comment Patient refuse to do second vitls set Intake Visit Reasons: Left saphenous Sprint Allergies acetaminophen (Vicodin) Allergy (Unknown, Verified 12/30/24 10:27) Unknown dexamethasone (TobraDex) Allergy (Unknown, Verified 12/30/24 10:27) Unknown erythromycin base Allergy (Unknown, Verified 12/30/24 10:27) Unknown fentanyl Allergy (Unknown, Verified 12/30/24 10:27) Vomiting hydrocodone (Vicodin) Allergy (Unknown, Verified 12/30/24 10:27) Unknown risedronate sodium (Actonel) Allergy (Unknown, Verified 12/30/24 10:27) Unknown Sulfa (Sulfonamide Antibiotics) Allergy (Unknown, Verified 12/30/24 10:27) Unknown sulfamethoxazole (From Bactrim) Allergy (Unknown, Verified 12/30/24 10:27) Unknown theophylline Allergy (Unknown, Verified 12/30/24 10:27) Unknown tobramycin (TobraDex) Allergy (Unknown, Verified 12/30/24 10:27) Unknown trimethoprim (From Bactrim) Allergy (Unknown, Verified 12/30/24 10:27) Unknown Anesthesia Extension Set Allergy (Unknown, Uncoded 12/30/24 10:27) Unknown Codeine Phosphate Allergy (Unknown, Uncoded 12/30/24 10:27) Vomiting [place]-Heel Allergy (Unknown, Uncoded 12/30/24 10:27) Unknown HPI HPI Left saphenous Sprint: Details: Patient presents for scheduled procedure. Denies any recent cough, cold, infection, fever or other significant changes in medical history since last office visit. PFSH Medical History Left knee pain Multiple drug allergies Osteoarthritis Celiac disease Multiple chemical sensitivity syndrome Depression Surgical History Hx of appendectomy H/O total hysterectomy with bilateral salpingo-oophorectomy (BSO) Social History Alcohol intake: unknown Patient Tobacco Use Status: Former Tobacco user Physical Exam Vital Signs: Last Vital Signs Pulse 80 01/28/25 10:40 Resp 16 01/28/25 10:40 BP 132/70 01/28/25 10:40 Pulse Ox 100 01/28/25 10:40 Oxygen Delivery Method Room Air 01/28/25 10:40 BMI result Body Mass Index 23.0 Office Procedures Details: Peripheral Nerve Stimulation Temporary Lead Placement, Ultrasound-Guided, Saphenous Nerve, Left ? After the risks, benefits and alternatives were discussed with the patient and informed consentwas obtained, patient was placed in the supine position and padded to foster comfort. Appropriate skin and bony landmarks were identified, and pertinent vascular structures were located. The skin overlying the needle entry site was prepped and draped in sterile fashion. Ultrasound was used to identify the femoral artery, the femoral vein and the saphenous nerve. After identifying and marking the intended target along the course of the saphenous nerve, the skin around the planned entry point and the subcutaneous tissues were injected with local anesthetic. An introducer needle and stimulating probe were assembled, inserted and advanced along the intended course of the saphenous; nerve, taking care to maintain the proper depth of insertion as the introducer was advanced under ultrasound guidance. The introducer needle was delivered to a location in proximity to the nerve taking care not to puncture the femoral artery or the vein. Multiple stimulation parameters were used to deliver stimulation to the saphenous nerve in concert with stimulating at multiple positions around the nerve. Nerve target acquisition was confirmed noting generation of sensory and mild motor effects (paresthesia, muscle tension, etc) in the medial knee, leg and ankle; corresponding to the distribution of the saphenous nerve. Various electrical parameter combinations were tested, and the lead location was adjusted (physically relocated under ultrasound guidance) until the patient indicated medial knee paresthesia and tension overlapping the distribution of the patient?s typical region of pain. The stimulating probe was removed from the introducer and a percutaneous lead was guided through the needle and delivered to a location in similar proximity to the nerve. Final location was verified with electrical stimulation and documented. The introducer needle was removed, and the exposed end of the percutaneous lead was attached to an external stimulator unit. Various electrical parameter combinations were again tested until the patient indicated paresthesia and muscle tension overlapping the distribution of the patient?s typical region of pain. After confirming that lead impedance was in the normal range, the external unit was detached, the needle was removed, and the lead was anchored at the skin. The lead was threaded into the connector block and electrical continuity and desired patient response was confirmed. The connector block was attached to the external stimulator unit. The site was covered with a sterile occlusive dressing. A final ultrasound image was taken to document final placement. The patient was observed for stability of vital signs and comfort. Sprint PNS Device: Sprint PNS Device [id number] Percutaneous Peripheral Neuroelectrode Procedure: 78030 - Percutaneous Peripheral Neuroelectrode Procedure code (CPT) selection complete Office Meds lidocaine HCl 10 mg/mL (1 %) injection solution Performing Provider: Radhames Benavides MD Performing Location: [facility] Administered by: Flora Garcia LPN on 01/28/25 11:03 Dose Route Admin Location Dispensed Lot Number Expiration Date NDC [employer] Par[employer]egal 3 mL subcut 5 mL Total Dispensed Waste 5 mL 0 % Assessment & Plan Assessment & Plan (1) Left knee pain: Code(s): M25.562 - Pain in left knee Category: Medical Plan Patient is status post temporary left saphenous nerve stimulator placement. Patient tolerated procedure well and was discharged home in stable condition with discharge instructions. All questions were answered. We will follow-up via telephone or in clinic to assess response to therapy. A follow-up appointment was made during today's visit. Orders: Orders US guide needle placement Today Marimar Josue APRN, ENVIRONMENTAL JOURNALIST M25.562 - Pain in left knee AMB Sprint PNS Today Radhames Benavides MD M25.562 - Pain in left knee Coding Level of Care Code Procedure Only Diagnoses Left knee pain M25.562 CPT Codes Sprint PNS - Sprint PNS Device: Sprint PNS Device ([id number]) Sprint PNS - SPRINT: 17567 - Percutaneous Peripheral Neuroelectrode ([id number]) Implantable Device Implantable Device Implantable Devices Qty [employer] Paralegal Implant Date Expiration Date Analgesic PENS system 1 [employer] 01/28/25 08/24/26
== END 2025-01-28 12:30 | disposition home or self-care (01) ==
LOC: HO.PMCPRC 10:32
PROVIDERS: PCP Family Medicine; Visit Provider Internal Medicine
DX: M25.562 Pain in left knee (principal)
CPT/HCPCS: 64555; 64590

== ENCOUNTER 2025-02-03 09:31 | Outpatient (AMB) | payer MEDICARE, BC, SELFPAY ==
[2025-02-03 09:39] VITALS: BP 118/76; PULSE 85; RESP 16; O2SAT 96; BMI 23.0
--- NOTE | 2025-02-03 09:39 | A.OFFVIS_ITS ---
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 Allergies dexamethasone (TobraDex) Allergy (Unknown, Verified 02/03/25 09:42) Unknown erythromycin base Allergy (Unknown, Verified 02/03/25 09:42) Unknown fentanyl Allergy (Unknown, Verified 02/03/25 09:42) Vomiting hydrocodone (Vicodin) Allergy (Unknown, Verified 02/03/25 09:42) Unknown risedronate sodium (Actonel) Allergy (Unknown, Verified 02/03/25 09:42) Unknown Sulfa (Sulfonamide Antibiotics) Allergy (Unknown, Verified 02/03/25 09:42) Unknown sulfamethoxazole (From Bactrim) Allergy (Unknown, Verified 02/03/25 09:42) Unknown theophylline Allergy (Unknown, Verified 02/03/25 09:42) Unknown tobramycin (TobraDex) Allergy (Unknown, Verified 02/03/25 09:42) Unknown trimethoprim (From Bactrim) Allergy (Unknown, Verified 02/03/25 09:42) Unknown Anesthesia Extension Set Allergy (Unknown, Uncoded 02/03/25 09:42) Unknown Codeine Phosphate Allergy (Unknown, Uncoded 02/03/25 09:42) Vomiting [place]-Heel Allergy (Unknown, Uncoded 02/03/25 09:42) Unknown Medication List - Last Reconciled 02/03/25 by Flora Garcia LPN ascorbic acid (vitamin C) mg PO calcium lactate 168 mg PO BID cholecalciferol (vitamin D3) 125 mcg PO DAILY magnesium 400 mg PO DAILY methenamine hippurate 1 g PO BID multivitamin 1 tab PO DAILY thyroid (pork) (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 The nerve stimulator has not provided the expected relief, and the patient describes her knee pain as severe and persistent. She initially set the stimulator to 55, but reduced it following advice, and has not adjusted it since, leading to uncertainty about its effectiveness. The patient has a history of a knee injury from 25 years ago, which has progressively worsened, resulting in severe pain that limits her mobility. She avoids walking to prevent exacerbating the pain, which intensifies by nighttime if she is active during the day. The patient has been advised to increase the stimulator setting gradually, as tolerated, to potentially improve pain management. She is instructed to maintain the setting at a higher level for three weeks to assess any changes in pain levels. Pain Description - Onset: Pain related to a knee injury sustained 25 years ago. - Quality: Described as severe and persistent. - Location: Primarily in the left knee. - Exacerbating factors: Increased activity during the day worsens pain by nighttime. - Relieving factors: Avoiding walking to prevent pain exacerbation. Physical Exam - Lead insertion site is c/d/i Pain Management - Affect: Pain significantly impacts the patient's mobility and daily ac tivities. - Analgesia: Current use of a nerve stimulator, with pain levels remaining high. - Activities of Daily Living: Pain limits walking and increases discomfort by nighttime if active during the day. [facility] Medical History Left knee pain Multiple drug allergies Osteoarthritis Celiac disease Multiple chemical sensitivity syndrome Depression Surgical History Hx of appendectomy H/O total hysterectomy with bilateral salpingo-oophorectomy (BSO) Social History Alcohol intake: unknown Patient Tobacco Use Status: Former Tobacco user Physical Exam Vital Signs: Last Vital Signs Pulse 85 02/03/25 09:39 Resp 16 02/03/25 09:39 BP 118/76 02/03/25 09:39 Pulse Ox 96 02/03/25 09:39 Oxygen Delivery Method Room Air 02/03/25 09:39 BMI result Body Mass Index 23.0 Assessment & Plan Assessment & Plan (1) Osteoarthritis of left knee: Code(s): M17.12 - Unilateral primary osteoarthritis, left knee Category: Medical (2) Left knee pain: Code(s): M25.562 - Pain in left knee Category: Medical Plan Plan Patient was informed and verbally consented to the use of an ambient scribe for clinic note documentation during this visit. 1. Left Knee Pain - Plan to increase nerve stimulator setting gradually, as tolerated, to assess efficacy over the next three weeks. - Follow-up in three weeks to evaluate pain management and consider alternative interventions if necessary. Discussion Notes During the visit, we discussed the current status of the nerve stimulator therapy for left knee pain, which has not been effective so far. I advised the patient to increase the stimulator setting gradually, as tolerated, and to maintain it at a higher level for three weeks to assess any changes in pain levels. We also discussed the possibility of replacing the stimulator if no improvement is observed, and the patient was informed about the follow-up plan in three weeks. Patient Instructions - Gradually increase the nerve stimulator setting as tolerated. - Maintain the setting at a higher level for three weeks to assess changes in pain levels. - Follow up in three weeks to evaluate the effectiveness of the current treatmen tCeline Coding Level of Care Code Est Pt Level 3 (81390) Diagnoses Osteoarthritis of left knee M17.12 Left knee pain M25.562
== END 2025-02-03 10:12 | disposition home or self-care (01) ==
LOC: HO.PMC 09:31
PROVIDERS: PCP Family Medicine; Visit Provider Internal Medicine
DX: M17.12 Unilateral primary osteoarthritis, left knee (principal); M25.562 Pain in left knee
CPT/HCPCS: 99024

== ENCOUNTER → 2025-02-03 09:31 | Outpatient (BNVA) | payer MEDICARE, BC, SELFPAY | PROVIDERS: PCP Family Medicine; Visit Provider Internal Medicine | DX: M17.12 Unilateral primary osteoarthritis, left knee (principal); M25.562 Pain in left knee | CPT/HCPCS: 99212 ==

== ENCOUNTER 2025-03-19 11:17 | Outpatient (AMB) | payer MEDICARE, BC, SELFPAY ==
[2025-03-19 11:22] VITALS: BP 140/82; PULSE 80; RESP 16; BMI 23.0
--- NOTE | 2025-03-19 11:22 | MHC.OFFVIS ---
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 Accompanied by: Nephew or Niece Allergies dexamethasone (TobraDex) Allergy (Unknown, Verified 03/19/25 11:24) Unknown erythromycin base Allergy (Unknown, Verified 03/19/25 11:24) Unknown fentanyl Allergy (Unknown, Verified 03/19/25 11:24) Vomiting hydrocodone (Vicodin) Allergy (Unknown, Verified 03/19/25 11:24) Unknown risedronate sodium (Actonel) Allergy (Unknown, Verified 03/19/25 11:24) Unknown Sulfa (Sulfonamide Antibiotics) Allergy (Unknown, Verified 03/19/25 11:24) Unknown sulfamethoxazole (From Bactrim) Allergy (Unknown, Verified 03/19/25 11:24) Unknown theophylline Allergy (Unknown, Verified 03/19/25 11:24) Unknown tobramycin (TobraDex) Allergy (Unknown, Verified 03/19/25 11:24) Unknown trimethoprim (From Bactrim) Allergy (Unknown, Verified 03/19/25 11:24) Unknown Anesthesia Extension Set Allergy (Unknown, Uncoded 03/19/25 11:24) Unknown Codeine Phosphate Allergy (Unknown, Uncoded 03/19/25 11:24) Vomiting [place]-Heel Allergy (Unknown, Uncoded 03/19/25 11:24) Unknown Medication List - Last Reconciled 03/19/25 by Flora Garcia LPN ascorbic acid (vitamin C) mg PO calcium lactate 168 mg PO BID cholecalciferol (vitamin D3) 125 mcg PO DAILY magnesium 400 mg PO DAILY methenamine hippurate 1 g PO BID multivitamin 1 tab PO DAILY thyroid (pork) (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 The knee pain has been persistent and was initially managed with a temporary nerve stimulator, which the patient believes helped initially but later caused discomfort due to a reaction to the battery. The patient reports that the battery caused pain in the eyes and general discomfort, leading to the decision to remove the device. The patient has a history of osteoarthritis in the knee, which has been managed with various treatments including cortisone injections and regenerative therapies, though these have not provided significant relief. The patient has also experienced pain in the right knee, indicating a possible progression of osteoarthritis. The patient has previously undergone stem cell injections, which were costly and painful, and has expressed a desire to avoid similar painful interventions in the future. Pain Description - Onset: Persistent knee pain managed with temporary nerve stimulator. - Quality: Pain exacerbated by battery reaction, causing discomfort in eyes and body. - Location: Primarily in the knees, with the right knee also showing symptoms. - Exacerbating factors: Reaction to battery in nerve stimulator. - Relieving factors: Removal of the nerve stimulator device. Physical Exam - Appears afebrile. - Alert and oriented. - Mood and affect appropriate. - Follows and participates in conversation appropriately. - Respiratory effort is unlabored. - Lead removed with tip intact. Insertion site c/d/i Pain Management - Affect: Pain impacts daily activities and causes significant discomfort. - Analgesia: Temporary nerve stimulator initially used, but removed due to adverse reaction. - Adverse Effects: Reaction to battery causing pain in eyes and body. - Activities of Daily Living: Pain interferes with daily tasks such as cooking and cleaning. - Aberrant Drug Related Behaviors: None reported. [facility] Medical History Left knee pain Multiple drug allergies Osteoarthritis Celiac disease Multiple chemical sensitivity syndrome Depression Surgical History Hx of appendectomy H/O total hysterectomy with bilateral salpingo-oophorectomy (BSO) Social History Alcohol intake: unknown Patient Tobacco Use Status: Former Tobacco user Physical Exam Vital Signs: Last Vital Signs Pulse 80 03/19/25 11:22 Resp 16 03/19/25 11:22 BP 140/82 H 03/19/25 11:22 BMI result Body Mass Index 23.0 Assessment & Plan Assessment & Plan (1) Left knee pain: Code(s): M25.562 - Pain in left knee Category: Medical (2) Osteoarthritis of left knee: Code(s): M17.12 - Unilateral primary osteoarthritis, left knee Category: Medical Plan Plan Patient was informed and verbally consented to the use of an ambient scribe for clinic note documentation during this visit. 1. Knee Pain - Removed the temporary nerve stimulator with tip intact. - Discussed alternative treatments including platelet-rich plasma (PRP) injections and gel injections. - Insurance coverage for gel injections discussed; PRP injections not covered. - Plan to proceed with gel injections after insurance authorization. 2. Osteoarthritis Of The Knee - History of cortisone and regenerative treatments with limited success. - Consideration of gel injections as a new treatment option. - Plan to obtain insurance authorization for gel injections. Discussion Notes During the visit, we discussed the patient's knee pain and the adverse reaction to the temporary nerve stimulator battery. We explored alternative treatment options, including platelet-rich plasma (PRP) injections and gel injections, noting that insurance covers the latter but not the former. The patient expressed concerns about previous painful treatments and preferred to start with gel injections, pending insurance authorization. Patient Instructions - Follow up with the clinic to confirm insurance authorization for gel injections. - Monitor knee pain and report any changes or worsening symptoms. - Avoid activities that exacerbate knee pain until treatment is initiated. Coding Level of Care Code Est Pt Level 3 (42278) Diagnoses Left knee pain M25.562 Osteoarthritis of left knee M17.12
--- OUTSIDE RECORDS SUMMARY | 2025-03-19 12:07 | XMS_ITS | Encounter Summary ---
Author Organization [facility] Address [address] [place] [address] Care Team Providers Care Terminal Make Up Operator Name Role Phone Ling Muller MD Primary Care Provider [phone] Encounter Details Date Type Department Care Team (Late st Contact Info) Description 06/19/2024 Lab Requisition [facility] - Main Lab [address] [place] [address] Augustus Carrillo MD [id number] [address] Other abnormal findings in urine Social History [...] Urine No growth 06/20/2024 8:56 AM EST [facility] ([facility] Urine Urine specimen obtained by clean catch procedure / Unknown 06/19/2024 06/19/2024 1:46 PM EST us Augustus Carrillo MD LAB MICROBIOLOGY - G ENERAL ORDERABLES Final Result [facility] ([facility]) [facility] [address] [place] [address], documented in this encounter Visit Diagnoses Diagnosis Other abnormal findings in urine documented in this encounter Care Teams Terminal Make Up Operator Relationship Specialty Start Date End Date Ling Muller MD PCP - General Internal Medicine 02/28/16 documented as of this encounter
--- OUTSIDE RECORDS SUMMARY | 2025-03-19 12:07 | XMS_ITS | Clinical Summary ---
Author Organization [facility] Address [address] [place] [address] Care Team Providers Care Community Service Director Name Role Phone Raisa Ortez DO, Diana [...] mg by mouth once a day. Active [id number] -lycopen-lutein 0.4 mg-300 mcg- 250 mcg tablet [...] a schedule II opioid drug. 5 Active methenamine (HIPREX) 1 gram tablet 5 Active Active Problems Problem Noted Date Diagnosed Date Recurrent UTI 05/04/2024 Assessment & Plan (03/01/2025 4:18 PM EST): Currently on Methenamine Hippurate. Follows with Dr. Louise at [facility]. Urine dip in office today was negative for UTI. Orders: POCT Urinalysis dipstick Assessment & Plan (01/11/2025 11:37 PM EDT): [...] possible CCB. Declines medications at this time. Generalized osteoarthritis 02/27/2024 Carcinoma in situ of skin of face 11/20/2023 Frequent PVCs 11/11/2023 Assessment & Plan (11/11/2023 12:22 PM EDT): Irregular beat heard on auscultation, EKG in clinic showed NSR with PVCs. Having bilat leg swelling. Holter monitor ordered. Advised to follow up as needed. Alzheimer's dementia without behavioral disturba nce 10/28/2023 Assessment & Plan (03/01/2025 4:18 PM EST): Stable. Unable to tolerate Namenda due to adverse reaction. Follows with neurology Dr. Hidalgo. Independent with ADLs. Assessment & Plan (01/11/2025 11:37 PM EDT): [...] 2023. Follow up with neurology as recommended. Cerebral atrophy 04/01/2023 Assessment & Plan (05/26/2023 [...] needed. Hypertension, essential 04/01/2023 Assessment & Plan (03/01/2025 11:13 AM EST): BP normotensive without medication. Continue to monitor. Assessment & Plan (01/11/2025 11:37 PM EDT): [...] exercise reviewed. BP check in 1 month. Arthritis 03/16/2023 Hypothyroidism (acquired) 03/16/2023 Assessment & Plan (03/01/2025 4:18 PM EST): Chronically suppressed TSH. Managed with RESCUE INSTRUCTOR Thyroid 90 mg daily by endocrinology. She declines reduction in her dose as recommended by endocrinology. She has re-established with terminal make up operator Dr. Chaudhry located on [facility]. Assessment & Plan (01/11/2025 11:37 PM EDT): Chronically suppressed TSH. Managed with RESCUE INSTRUCTOR Thyroid 90 mg daily by endocrinology. She declines reduction in her dose as recommended by endocrinology. She has re-established with terminal make up operator Dr. Chaudhry located on [facility]. Records requested. Recheck TSH, free T4. Orders: TSH; Future T4, free; Future T3; Future Assessment & Plan (11/19/2024 7:54 PM EDT): Chronically suppressed TSH. Managed with RESCUE INSTRUCTOR Thyroid 90 mg daily by endocrinology. She declines reduction in her dose as recommended by endocrinology. She has re-established with terminal make up operator Dr. Chaudhry located on [facility]. Records requested. Assessment & Plan (10/01/2024 6:15 PM EDT): Chronically suppressed TSH. Managed with RESCUE INSTRUCTOR Thyroid 90 mg daily by endocrinology. She declines reduction in her dose as recommended by endocrinology. Plans to be establishing with new terminal make up operator. Assessment & Plan (08/23/2024 7:51 PM EDT): Clinically euthyroid. Managed with RESCUE INSTRUCTOR Thyroid 120 mg daily by endocrinology. Will be established with new terminal make up operator in [place] in March. Assessment & Plan (05/08/2024 6:53 PM EST): Clinically euthyroid. Managed with RESCUE INSTRUCTOR Thyroid 120 mg daily by endocrinology. Will be established with new terminal make up operator in [place] in March. Assessment & Plan (02/27/2024 6:31 PM EDT): Clinically euthyroid. Managed with RESCUE INSTRUCTOR Thyroid 120 mg daily by endocrinology. Will be established with new terminal make up operator in [place] in March. Assessment & Plan (11/11/2023 12:20 PM EDT): Recent TSH 0.014, repeat TSH ordered. Assessment & Plan (09/15/2023 8:13 PM EDT): Clinically euthyroid. Managed with RESCUE INSTRUCTOR Thyroid 120 mg daily by endocrinology. Assessment & Plan (03/29/2023 7:44 PM EST): Managed with RESCUE INSTRUCTOR Thyroid 120 mg daily by endocrinology. Mixed incontinence urge and stress 03/16/2023 Assessment & Plan (12/24/2024 4:26 PM EDT): Orders: Ambulatory referral to Urology; Future Osteoporosis 03/16/2023 Assessment & Plan (03/01/2025 11:13 AM EST): Managed with [employer] by records section supervisor Dr. Matthew Ortiz in [place]. Assessment & Plan (01/11/2025 11:37 PM EDT): Managed with [employer] by records section supervisor Dr. Matthew Ortiz in [place]. Assessment & Plan (11/19/2024 7:54 PM EDT): Managed with [employer] by records section supervisor Dr. Matthew Ortiz in [place]. Assessment & Plan (10/01/2024 6:15 PM EDT): Managed with [employer] by records section supervisor Dr. Matthew Ortiz in [place]. Assessment & Plan (08/23/2024 7:51 PM EDT): Managed with [employer] by records section supervisor Dr. Matthew Ortiz in [place]. Assessment & Plan (05/08/2024 6:53 PM EST): Managed with [employer] by records section supervisor Dr. Matthew Ortiz in [place]. Assessment & Plan (02/27/2024 6:31 PM EDT): Managed with [employer] by records section supervisor Dr. Matthew Ortiz in [place]. Pruritus 10/22/2022 Seborrheic dermatitis 10/10/2021 Asymptomatic varicose veins of right lower [...] loss 02/11/2018 Overview (02/27/2024): Follows with ENT Epidermoid cyst of skin 11/22/2015 Squamous cell cancer of scalp and skin of neck 0 11/24/2013 Inflamed seborrheic keratosis 10/01/2013 Osteoarthritis of left knee 11/03/2012 Overview (02/27/2024): Follows with orthopedics As well as the arthritis treatment center in [place] Assessment & Plan (03/01/2025 4:18 PM EST): Follows with ortho. Xray left knee done 03/18/24 showed tricompartmental OA. Received cortisone injection. Recently evaluated by ortho/pain management at [facility], plans for possible RFA. Has SPRINT device in place during visit. Assessment & Plan (01/11/2025 11:37 PM EDT): Follows with ortho. Xray left knee done 03/18/24 showed tricompartmental OA. Received cortisone injection. Recently evaluated by ortho/pain management at [facility], plans for possible RFA. Assessment & Plan (11/19/2024 7:54 PM EDT): Follows with ortho. Xray left knee done 03/18/24 showed tricompartmental OA. Received cortisone injection. Recently evaluated by ortho/pain management at [facility], plans for possible RFA. Assessment & Plan (04/03/2024 12:13 PM EST): Follows with ortho. Xray left knee done 03/18/24 showed tricompartmental OA. Received cortisone injection. 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 Will arrange for ultrasound of bladder and consult with urologist. Pt wishes to have further work up at [facility]. 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 Orders: POCT Urinalysis dipstick Leg edema 07/29/2023 03/01/2025 Assessment & Plan (04/03/2024 12:13 PM EST): Mild swelling to bilat feet, L>R, no weight gain noted, advised continue with compression stockings. Assessment & Plan (11/11/2023 12:20 PM EDT): Bilateral LE edema. Discussed leg elevation, compression, low sodium diet. CMP ordered. Assessment & Plan (07/29/2023 1:39 PM EDT): Bilateral LE edema. Discussed leg elevation, compression, low sodium diet. Hydrochlorothiazide as above for hypertension. Urinary frequency 06/14/2023 11/11/2023 Assessment & Plan [...] Follow up if symptoms persist or worsen. Moderate late onset Alzheime r's dementia without behavioral disturbance, psychotic disturbance, mood disturbance, or anxiety 06/06/2023 03/01/2025 Assessment & Plan (02/27/2024 6:31 PM EDT): Stable. Unable to tolerate Namenda due to adverse reaction. Currently at her baseline, A&O x3. MMSE score 30/26 Sep 2023. 2 points improved on MoCA done through her neurologist October 2023. Follow up with neurology as recommended in next year. Assessment & Plan (11/11/2023 11:09 AM EDT): Follows with Dr. Hidalgo. Stable. Currently at her baseline A&Ox3. Assessment & [...] Plan (06/14/2023 4:56 PM EST): Follows with [facility] neurologist. Advised medication for dementia and son states his mom declined due to advised side effects. Lengthy discussion had with patient and son that it may be beneficial to trial the medication. Follow up as needed. Memory loss 03/29/2023 11/11/2023 Assessment & Plan [...] difficulty driving places as she drives to [place] frequently. Discussed plan of MRI brain with blood work. RTO 3 days for follow up and review of results. Alarm signs and symptoms reviewed and when to seek emergency care. Allergy 03/16/2023 03/01/2025 Blurry vision 03/16/2023 02/27/2024 COVID-19 03/16/2023 03/16/2023 Cracked nails 03/16/2023 03/01/2025 Diplopia 03/16/2023 03/01/2025 Dry scalp 03/16/2023 03/01/2025 Low back pain 03/16/2023 03/01/2025 Major depression 03/16/2023 03/16/2023 Overweight (BMI 25.0-29.9) 03/16/2023 0 11/11/2023 Saliva increased 03/16/2023 03/16/2023 Swelling of left lower extremity 03/16/2023 03/16/2023 Lump in neck 03/16/2023 11/11/2023 Dizziness 03/16/2023 03/01/2025 Assessment & Plan (11/11/2023 12:23 PM EDT): Dizziness upon sitting up with recent submersion of head underwater, suspect inner ear/vertigo symptoms. Advised sitting up slowly. Follow up if symptoms persist or worsen. Disorder of pigmentation 10/10/202106/2024 Atypical chest pain 04/12/2017 03/01/20 25 Overview (02/27/2024): S/p chemical stress inconclusive, echo stress deferred by patient. 04/17/2017 Celiac disease 11/05/2005 03/01/2025 Encounters Date Type Department Care Team Description 03/01/2025 10:30 AM EST Office Visit [facility] [address] [facility] Family Practice Department [address] [place] [address] Paula Carrillo NP Medicare annual wellness visit, subsequent (Primary Dx); Alzheimer's dementia without behavioral disturbance (HCC); Hypertension, essential; Osteoporosis, unspecified osteoporosis type, unspecified pathological fracture presence; Hypothyroidism (acquired); Osteoarthritis of left knee, unspecified osteoarthritis type; Recurrent UTI 02/11/[address] [address] Raisa Yanelis V, DO Overdue order 01/11/2025 11:00 AM EDT Office Visit [address] [address] Raisa Yanelis V, DO Recurrent UTI (Primary Dx); Urinary tract infection without hematuria, site unspecified; Osteoarthritis of left knee, unspecified osteoarthritis type; Hypertension, essential; Hypothyroidism (acquired); Osteoporosis, unspecified osteoporosis type, unspecified pathological fracture presence; Alzheimer's dementia without behavioral disturbance (HCC) 01/11/2025 Results Follow-Up [address] [address] Kelly Klinena V, DO 12/24/2024 3:30 PM EDT Office Visit [address] [address] Taya Piña NP Dysuria (Primary Dx); Mixed incontinence urge and stress; Frequent UTI 12/24/[address] [address] Taya Piña NP 12/23/[address] [address] Yanelis Kline V, DO UTI from Last 3 Months Immunizations Immunization Administration Dates Next Due Covid-19 Monovalent Vaccine, Moderna, mRNA, PF 05/16/2021,01/03/2021,12/06/2020 Influenza, Trivalent, Adjuva nted, PF (FLUAD) 02/27/2024(Deferred: Patient decision) Pneumococcal Polysaccharide Vaccine, 23 Valent 08/28/2004 Pneumococcal conjugate PCV20,polysaccharide CGE095 conjugate, adjuvant, PF (Prevnar 20) 02/27/2024(Deferred: Patient [...] e alcohol) [facility] Utilities Answer Date Recorded In the past 12 months has e electric, gas, oil, or water company [...] Sign Reading Time Taken Comments Blood Pressure 150/70 03/01/2025 10:27 AM EST Pulse 59 03/01/2025 10:27 AM EST Temperature 36.1 C (96.9 F) 03/01/2025 10:27 AM EST Respiratory Rate 18 06/02/2024 11:01 AM EST Oxygen Saturation 98% 03/01/2025 10:27 AM EST Inhaled Oxygen Concentration - - Weight 52.9 kg (116 lb 9.6 oz) 03/01/2025 10:27 AM EST Height 147.3 cm (4' 9.99 ) 03/01/2025 10:[address] Body Mass Index 24.38 03/01/2025 10:27 AM EST Plan of Treatment Upcoming Encounters Date Type Department Care Team (Late st Contact Info) Description 06/03/2025 11:00 AM EST Follow-Up [facility] Neurology [address] [place] [address] Janeth Hidalgo MD [address] [place] [address] 06/07/2025 10:00 AM EST Follow-Up [address] Family Practice Department [address] [place] [phone] Yanelis Kline DO [address] [place] [id number] Health Maintenance Due Date Last Done Comments Zoster Vaccines (1 of 2) 1987 Pneumococcal Vaccine: 50+ Years (2 of 2 - PCV) 08/28/2005 08/28/2004 DTaP,Tdap,and Td Vaccines (1 - Tdap) 12/20/2012 12/19/2012, 12/19/2012 COVID-19 Vaccine (4 - season) 2024 05/16/2021, 01/03/2021, 12/06/2020 Influenza Vaccine (#1) 2025 Postp oned from 11/27/2024 (Patient Declined) [facility] [place] Annual Screening 11/19/2025 11/19/2024 Basic Metabolic Panel 01/11/2026 01/11/2025 , 08/18/2024, 11/11/2023, Additional history exists RSV Vaccine (60+ years old and patients) (1 - 1-dose 75+ series) 01/11/2026 Postponed from 2012 (Patient Declined) Depression Screening and Follow-Up 03/01/2026 03/01/2025 Fall Risk Screening 03/01/2026 03/01/2025 Tobacco Screening 04/29/2042 03/01/2025 Osteoporosis Screening Completed , 11/24/2022, 02/28/2021 Alcohol/Substance Use Screening Completed 03/01/2025 Health Care Proxy Review Completed 03/01/2025, 01/29 Hepatitis B Vaccines Aged Out No long er eligible based on patient's age to complete this topic Procedures * Due to [place] state law, this organization might not be [...] NON-INTERFACED Routine 12/24/2024 3:38 PM EDT Dysuria HM DEXA SCAN 11/30/2022 10:31 AM EDT from Last 3 Months or Most Recently Relevant to Health Maintenance Results * Due to [place] state law, this organization might not be sharing negative HIV tests. * (ABNORMAL) Urine culture (clean catch) (Lab Collect) (01/11/2025 12:54 PM EDT) Urine Culture 10,000-25,000 CFU/mL Streptococcus mitis/oralis(A) MINIMUM INHIBITORY CONCENTRATION (OSCAR) 01/14/2025 9:41 AM EDT [facility] Urine Urine specimen collection, clean catch / Unknown Non-Blood Collection / Unknown 01/11/2025 12:54 PM EDT 01/11/2025 12:54 PM EDT us Yanelis Kline V, LAB MICROBIOLOGY - GENER AL ORDERABLES Final Result [facility] [address] [place] [address], [place] [phone] * CBC (01/11/2025 11:45 AM EDT) WBC 6.5 4.8 - 10.8 10*3/uL 01/11/2025 2:26 PM EDT [facility] RBC 4.20 4.20 - 5.40 10*6/uL 01/11/2025 2:26 PM EDT [facility] Hemoglobin 12.4 11.7 - 15.5 g/dL 01/11/2025 2:26 PM EDT [facility] Hematocrit 38.0 35.7 - 45.8 % 01/11/2025 2:26 PM EDT [facility] MCV 90.5 81.0 - 99.0 fL 01/11/2025 2:26 PM EDT [facility] MCH 29.5 26.0 - 34.0 pg 01/11/2025 2:26 PM EDT [facility] MCHC 32.6 31.0 - 36.0 g/dL 01/11/2025 2:26 PM EDT [facility] RDW 13.7 12.0 - 15.0 % 01/11/2025 2:26 PM EDT [facility] Platelets 252 140 - 440 10*3/uL 01/11/2025 2:26 PM EDT [facility] MPV 10.9 9.4 - 12.3 fL 01/11/2025 2:26 PM EDT [facility] RDW Standard Deviation 46.1 36.4 - 46.3 fL 01/11/2025 2:26 PM EDT [facility] Blood Structure of peripheral vein / Unknown Venipuncture / Unknown 01/11/2025 11:45 AM EDT 01/11/2025 12:56 PM EDT us Yanelis Kline V, DO LAB BLOOD ORDERABLES Fin al Result [facility] [address] [place] [address] [address] [place] [address], * T3 (01/11/2025 11:45 AM EDT) Total T3 175 80 - 200 ng/dL 01/11/2025 2:49 PM EDT [facility] Comment: Dietary supplements containing biotin may [...] 11:45 AM EDT 01/11/2025 12:56 PM EDT Yanelis HipSwapenhausen V, DO LAB BLOOD ORDERABLES Fin al Result Performing Organization Address [facility] de Phone Number [facility] [address] [place] [address], [place] [phone] * (ABNORMAL) TSH (01/11/2025 11:45 AM EDT) TSH 0.028(L) 0.270 - 4.200 uIU/mL 01/11/2025 2:49 PM EDT [facility] Comment: Females: 1st trimester 0.150-4.000 IU/mL 2nd trimester 0.310-4.170 IU/mL 3rd trimester 0.380-4.150 IU/mL Blood Structure of peripheral vein / Unknown Venipuncture / Unknown 01/11/2025 11:45 AM EDT 01/11/2025 12:56 PM EDT Yanelis HipSwapenhausen V, DO LAB BLOOD ORDERABLES Fin al Result Performing Organization Address [facility] Co de Phone Number [facility] [address] [place] [address], [place] [phone] * T4, free (01/11/2025 11:45 AM EDT) Free T4 1.08 0.80 - 1.80 ng/dL 01/11/2025 2:49 PM EDT [facility] Comment: Females: (ng/dL) First Trimester 0.95-1.58 [...] EDT 01/11/2025 12:56 PM EDT us Yanelis Kline V, LAB BLOOD ORDERABLES Fin al Result [facility] [address] [place] [address] [address] [place] [address], * (ABNORMAL) Comprehensive Metabolic Panel (01/11/2025 11:45 AM EDT) NA 137 136 - 145 mmol/L 01/11/2025 2:49 PM EDT [facility] K 4.3 3.5 - 5.1 mmol/L 01/11/2025 2:49 PM EDT [facility] Cl 103 98 - 109 mmol/L 01/11/2025 2:49 PM EDT [facility] CO2 25 22 - 32 mmol/L 01/11/2025 2:49 PM EDT [facility] Anion Gap 13 >=0 01/11/2025 2:49 PM EDT [facility] Glucose 89 60 - 99 mg/dL 01/11/2025 2:49 PM EDT [facility] Creatinine 0.86 0.50 - 1.12 mg/dL 01/11/2025 2:49 PM EDT [facility] Calcium 9.5 8.4 - 10.4 mg/dL 01/11/2025 2:49 PM EDT [facility] Total Protein 6.0(L) 6.6 - 8.7 g/dL 01/11/2025 2:49 PM EDT [facility] Albumin 4.3 3.5 - 5.0 g/dL 01/11/2025 2:49 PM EDT [facility] Bilirubin, Total 0.4 0.2 - 1.2 mg/dL 01/11/2025 2:49 PM EDT [facility] Alkaline Phosphatase 63 40 - 129 U/L 01/11/2025 2:49 PM EDT [facility] AST 23 0 - 33 U/L 01/11/2025 2:49 PM EDT [facility] ALT 11 <=33 U/L 01/11/2025 2:49 PM EDT [facility] BUN 16 8 - 23 mg/dL 01/11/2025 2:49 PM EDT [facility] eGFR 65 >=60 mL/min/1. 73m2 01/11/2025 2:49 PM EDT [facility] Comment:The estimated glomer ular filtration rate [...] - 4.2 g/dL 01/11/2025 2:49 PM EDT [facility] A/G Ratio 2.5 1.5 - 3.0 01/11/2025 2:49 PM T [facility] Blood Structure of peripheral vein / Unknown Venipuncture / Unknown 01/11/2025 11:45 AM EDT 01/11/2025 12:56 PM EDT us Yanelis Immflorencen V, DO LAB BLOOD ORDERABLES Fin al Result [facility] [address] [address], [place] [phone] * POCT Urinalysis Dipstick, Manual, non-interfaced (01/11/2025 11:06 AM EDT) Only the most recent of2 resultswithin [...] Negative Urine 01/11/2025 11:0 6 AM EDT us Yanelis Immenhausen V, DO POINT OF CARE TEST ORDER SHARONDA Final Result * Montilla Top, Urine (12/24/2024 3:45 PM EDT) Extra Tube Hold for add-ons. 12/24/2024 8:05 PM EDT [facility] Comment:Auto resulted. Urine Urine specimen collection, clean catch / Unknown Non-Blood Collection / Unknown 12/24/2024 3:45 PM EDT 12/24/2024 6:17 PM EDT Taya Piña RESCUE INSTRUCTOR LAB URINE ORDERABLES Final Res ult [facility] [address] [address], [place] [phone] * Microscopic Urinalysis Only (12/24/2024 3:45 PM EDT) RBC, Urine 0-2 None Seen, 0-2 /HPF 12/24/2024 7:17 PM EDT [facility] WBC, Urine 0-2 None Seen, 0-2 /HPF 12/24/2024 7:17 PM EDT [facility] WBC Clumps, Urine 0-2 /HPF 12/24/2024 7:17 PM EDT [facility] Squamous Epithelial Cells, Urine 0-2 /HPF 12/24/2024 7:17 PM EDT [facility] Calcium Oxalate Crystals, Urine Trace /HPF 12/24/2024 7:17 PM EDT [facility] Bacteria, Urine None Seen None Seen /HPF 12/24/2024 7:17 PM EDT [facility] Urine Urine specimen collection, clean catch / Unknown Non-Blood Collection / Unknown 12/24/2024 3:45 PM EDT 12/24/2024 6:33 PM EDT Taya Piña RESCUE INSTRUCTOR LAB URINE ORDERABLES Final Res ult [facility] [address] [place] [address] [address] [place] [address], [place] [phone] * (ABNORMAL) Urinalysis W/Reflex to Microscopic & Culture (12/24/2024 3:45 PM EDT) Color, Urine Yellow Yellow 12/24/2024 6:33 PM EDT [facility] Clarity, Urine Clear Clear 12/24/2024 6:33 PM EDT [facility] Specific [place], Urine 1.015 1.005 - 1.030 12/24/2024 6:33 PM EDT [facility] pH, Urine 5.5 5.0 - 8.0 12/24/2024 6:33 PM EDT [facility] Protein, Urine Negative Negative mg/dL 12/24/2024 6:33 PM EDT [facility] Glucose, Urine Negative Negative mg/dL 12/24/2024 6:33 PM EDT [facility] Ketones, Urine Negative Negative mg/dL 12/24/2024 6:33 PM EDT [facility] Bilirubin, Urine Negative Negative 12/24/2024 6:33 PM EDT [facility] Blood, Urine Negative Negative 12/24/2024 6:33 PM EDT [facility] Nitrite, Urine Negative Negative 12/24/2024 6:33 PM EDT [facility] Urobilinogen, Urine 0.2 0.2 - 1.0 E.U./dL 12/24/2024 6:33 PM EDT [facility] Leukocyte Esterase, Urine Trace(A) Negative 12/24/2024 6:33 PM EDT [facility] Urine Urine specimen collection, clean catch / Unknown Non-Blood Collection / Unknown 12/24/2024 3:45 PM EDT 12/24/2024 6:17 PM EDT Narrative [facility] - 12/24/2024 6:33 PM EDT Some urinalysis results will not meet the criteria for reflex urine culture although certain urine values may be abnormal. Additional testing can be ordered by the provider if clinically warranted. Taya Piña NP LAB URINE ORDERABLES Final Res ult [facility] [address] [place] [address], [place] [phone] * Dexa Scan (11/30/2022 10:31 AM EDT) Anatomical Region Laterality Modality Other us Onbase Scan [facility] Final Resu lt from Last 3 Months or Most Recently Relevant to Health Maintenance Insurance MEDICARE [facility] [employer] Advance Directives Documents on File Type Date Recorded Patient Window Covering Sales Consultant Expl anation Guardianship 02/05/2024 5:32 PM Guardianship 11/13/2023 2:20 PM 11-13-2023 Guardianship 05/29/2023 3:11 PM 11-17-2019 Power of Drum Tender 05/29/2023 3:11 PM 11-16 Power of Drum Tender 05/24/2023 2:06 PM Health Care Proxy 08/17/2021 Health Care Proxy 08/17/2021 Health Care Proxy 08/17/2021 Health Care Proxy 08/17/2021 Health Care Proxy 08/17/2021 Advance Directive 07/12/2021 10:02 AM Care Teams Community Service Director Relationship Specialty Start Date End Date Yanelis Kline DO [facility] [place] [address] PCP - General Family Medicine 02/25/23
--- OUTSIDE RECORDS SUMMARY | 2025-03-19 12:07 | XMS_ITS | Clinical Summary ---
Author Organization [address] Address [address] [place] [phone] Phone Care Team Providers Care Machine Set Up Technician Name Role Phone Ling Muller MD Primary Care Provider Surgical History Surgery Date Site/Laterality Comments OTHER SURGICAL HISTORY PROCEDURE: HISTORICAL MELANOMA OTHER SURGICAL HISTORY 2003 PROCEDURE: OK ARTHRS KNEE W/MENISCECTOMY MED&LAT W/SHAVING; COMMENT: left ESOPHAGOGASTRODUODENOSCOPY 07/17/2005 PROCEDURE: OK EGD TRANSORAL BIOPSY SINGLE/MULTIPLE; COMMENT: celiac disease COLONOSCOPY 07/17/2008 PROCEDURE: OK COLONOSCOPY FLX DX W/COLLJ SPEC WHEN PFRMD; [...] Depression Screening 04/29/2024 COVID-19 Vaccine ( - 2024-2 6 season) 2024 Influenza Vaccine (#1) 2024 HIB [...] T score at or below -2.5. The [facility] Department of Internal Medicine recommends using National [...] screening schedule based on magali Bates., [facility] May 17, 2011 for patients with [...] T score at or below -2.5. The [facility] Department of Internal Medicine recommendsusing National Osteoporosis [...] Relevant to Health Maintenance Insurance MEDICARE [facility] Care Teams Machine Set Up Technician Relationship Specialty Start Date End Date Ling Muller MD [phone] (work) PCP - General Internal Medicine 02/28/16
--- OUTSIDE RECORDS SUMMARY | 2025-03-19 12:07 | XMS_ITS | Encounter Summary ---
Author Organization [facility] Address [address] [place] [address] Care Team Providers Care Claim Rep Name Role Phone Raisa Ortez DO, Diana Primary Care Provider + Encounter Details Date Type Department Care Team (Late st Contact Info) Description 04/12/2023 Lab Requisition [facility] [address] [place] [address] Paula Carrillo NP [address] [place] [address] Dysuria; Unspecified abnormal findings in urine Social [...] Info) Description 06/03/2025 11:00 AM EST Follow-Up [facility] [address] [place] [id number] Janeth Hidalgo MD [address] [place] [id number] 06/07/2025 10:00 AM EST Follow-Up [facility] [address] [facility] Department [address] [place] [address] Yanelis Kline V, DO [address] [place] [address] documented as of this encounter Procedures * Due to [place] law, this organization might not be sharing [...] in this encounter Results * Due to [place] law, this organization might not be sharing negative HIV tests. * Urine Culture, Routine (04/12/2023 6:41 PM EST) Urine Culture 10,000 100,000 CFU/mL mixed gram positives; multiple organisms are present, suggestive of contamination at the time of collection. [facility] MANUAL 04/14/2023 7:38 AM EST [facility] Urine 04/12/2023 6:41 PM EST 04/12/2023 6:41 PM EST us Paula Carrillo NP LAB MICROB IOLOGY - GENERAL ORDERABLES Edited Result - Final [facility] [address] [facility] [address] [place] [address], [place] [phone] * Montilla Top, Urine (04/12/2023 6:41 PM EST) Extra Tube Hold for add-ons. [facility] MANUAL 04/14/2023 7:39 AM EST [facility] Comment:Auto resulted. Urine 04/12/2023 6:41 PM EST 04/12/2023 6:41 PM EST us Paula Carrillo [facility] URINE ORDERABL ES Final Result Performing Organization Address City/State/[facility] Co de Phone Number [facility] [address] [id number], documented in this encounter Visit Diagnoses Diagnosis Dysuria Unspecified abnormal findings in urine documented in this encounter Care Teams Claim Rep Relationship Specialty Start Date End Date Yanelis Kline DO [address] [place] [id number] PCP - General Family Medicine 02/25/23 documented as of this encounter
== END 2025-03-19 11:56 | disposition home or self-care (01) ==
PROVIDERS: PCP Family Medicine; Visit Provider Internal Medicine
DX: M25.562 Pain in left knee (principal); M17.12 Unilateral primary osteoarthritis, left knee
CPT/HCPCS: 99213

== ENCOUNTER → 2025-03-19 11:17 | Outpatient (BNVA) | payer MEDICARE, BC, SELFPAY | PROVIDERS: PCP Family Medicine; Visit Provider Internal Medicine | DX: M25.562 Pain in left knee (principal); G89.29 Other chronic pain; M17.12 Unilateral primary osteoarthritis, left knee | CPT/HCPCS: 99212 ==